=== PATIENT | male | born 1965 | race Caucasian/White ===

== ENCOUNTER 2021-04-22 13:32 | Inpatient (IN) | payer OTHER, SELFPAY ==
[~2021-04-22 13:32] MED LIST: Iopamidol-370 76% 500 ML 1 ML ONE; PROPOFOL 200 MG/20 ML VIAL ONE; Succinylcholine 200 MG/10 ml SYRINGE FS ONE
[2021-04-22] MEDS ORDERED: Succinylcholine 200 MG/10 ml SYRINGE FS ONE (13:36)
[2021-04-22] MEDS ORDERED: CEFAZOLIN 1 GM VIAL ONE ×2 (13:37→21:47)
[2021-04-22] MEDS ORDERED: ceFAZolin 2 GM/DEX 5% 100 ML BAG ONE (13:37)
[2021-04-22] MEDS ORDERED: Vecuronium 10 MG VIAL ONE (13:57)
[2021-04-22] MEDS ORDERED: Water For Inject, Bacteriostat 30 ML ONE (13:58)
[2021-04-22 13:59] LABS: #Basophils 0.2 thou/uL (0.0-0.2); #Eosinphils 0.2 thou/uL (0.0-0.7); #Lymphocytes 3.6 thou/uL (1.20-3.40); #Monocytes 0.9 thou/uL (0.11-0.59); #Neutrophils 14.2 thou/uL (1.40-6.50); %Basophils 0.8 % (0.0-1.0); %Eosinophils 1.2 % (0.0-10.0); %Lymphocytes 18.9 % (21.0-51.0); %Monocytes 4.5 % (0.0-10.0); %Neutrophils 74.5 % (42.0-75.0); Hemoglobin 14.9 g/dL (14.0-18.0); Mean Corpuscular HGB CONC 34.6 g/dL (32.0-36.0); Mean Corpuscular Hemoglobin 30.5 pg (27.0-31.0); Mean Corpuscular Volume 88.2 fL (78.0-98.0); Platelet Count 363 thou/uL (130-400); RBC Distribution Width 13.1 % (11.5-14.5); Red Blood Cell (RBC) Count 4.87 mill/uL (4.70-6.10); White Blood Cell (WBC) Count 19.1 thou/uL (4.8-10.8)
[2021-04-22] MEDS ORDERED: Fentanyl 100 MCG/2 ML VIAL ONE ×6 (13:59→22:31)
[2021-04-22] MEDS ORDERED: fentaNYL Citrate/PF 2,000 MCG in Sodium Chloride 0.9% 60 ML IV SCH (14:00)
[2021-04-22 14:07] LABS: Prothrombin Time 13.3 sec (12.0-14.7)
[2021-04-22 14:08] LABS: PTT 24.7 sec (22.9-36.1)
[2021-04-22 14:25] LABS: ALT (SGPT) 268 U/L (8-55); AST (SGOT) 205 U/L (5-34); Albumin 3.9 g/dL (3.5-5.0); Alkaline Phosphatase 79 U/L (40-110); Anion Gap 17 mmol/L (10-20); BUN (Urea Nitrogen) 19 mg/dL (8.4-25.7); Bilirubin, Total 0.4 mg/dL (0.2-1.2); Calc. Creatinine Clearance 0 mL/min (70-130); Calcium 8.7 mg/dL (7.8-10.44); Carbon Dioxide 25 mmol/L (22-29); Chloride 102 mmol/L (98-107); Globulin 2.2 g/dL (2.4-3.5); Potassium 3.7 mmol/L (3.5-5.1); Protein, Total 6.1 g/dL (6.0-8.3); Sodium 140 mmol/L (136-145)
[2021-04-22 14:28] LABS: Glucose 206 mg/dL (70-105)
[2021-04-22] MEDS ORDERED: Midazolam HCl 2 mg/2 ml Vial ONE ×3 (14:30→22:31)
[2021-04-22] MEDS ORDERED: Boostrix 0.5 ML (Tdap) VIAL ONE (15:32)
[2021-04-22 15:34] LABS: Actual Bicarbonate (HCO3a) 23.7 mEq/L (22-28); Analyzer IN Cardio ER; Base Excess (BEa) -1.7 mEq/L (-2.0 to +3.0); CO2 Tension 42.7 mmHg (35.0-45.0); Calcium, Ionized (arterial) 1.35 mmol/L (1.12-1.30); Carboxyhemoglobin (COHb) 0.2 gm% (0.0-3.0); O2 Tension (PaO2), arterial 146.3 mmHg (80.0-100.0); Potassium - ABG Lab 3.35 mmol/L (3.70-5.30); Puncture Site Arterial Line; pH, Arterial 7.36 (7.35-7.45)
[2021-04-22 15:35] LABS: ALV-art Gradient 513.325 mmHg (0-20)
[2021-04-22] MEDS ORDERED: Dextrose 5% in Water 1,000 ML IV PRN (15:54)
[2021-04-22] MEDS ORDERED: Promethazine HCl 25 MG/ML VIAL IM PRN (15:54)
[2021-04-22] MEDS ORDERED: Dextrose 50% Abboject 50 ML SYRINGE SLOW IVP PRN (15:54)
[2021-04-22] MEDS ORDERED: Ondansetron PF 4 MG/2 ML Vial IVP PRN (15:54)
[2021-04-22] MEDS ORDERED: fentaNYL Citrate/PF 2,000 MCG in Sodium Chloride 0.9% 60 ML IV PRN (16:04)
[2021-04-22 16:07] LABS: Hemoglobin A1c 5.8 % (4.0-6.0)
[2021-04-22] MEDS ORDERED: Sodium Chloride 0.9% 1,000 ML IV SCH (16:15)
[2021-04-22] MEDS ORDERED: PHENYLEPHRINE-NS 100 MCG/ML 10 ML SYRINGE ONE (16:56)
[2021-04-22] MEDS ORDERED: Rocuronium Bromide 10 MG/ML (10ML VIAL) ONE (16:56)
[2021-04-22] MEDS ORDERED: PROPOFOL 200 MG/20 ML VIAL ONE (16:56)
[2021-04-22] MEDS ORDERED: Phenylephrine 10 MG/ML VIAL ONE ×2 (17:00)
[2021-04-22] MEDS ORDERED: Morphine 4 MG/ML VIAL SLOW IVP PRN (17:03)
[2021-04-22] MEDS ORDERED: Albumin 5% 500 ML ONE (17:10)
[2021-04-22 17:20] LABS: SARS-CoV-2 NAA Rapid Test Not Detected (NotDetected)
[2021-04-22 17:57] LABS: INR-International Normal Ratio 1.2; PTT 25.2 sec (22.9-36.1); Prothrombin Time 15.1 sec (12.0-14.7)
[2021-04-22 17:59] LABS: Lactic Acid 3.2 mmol/L (0.5-2.2)
[2021-04-22 18:18] LABS: Hemoglobin 10.4 g/dL (14.0-18.0); Platelet Count 242 thou/uL (130-400)
[2021-04-22] MEDS ORDERED: Neomycin-Polymyxin 1 ML AMP ONE ×3 (18:42→19:46)
[2021-04-22] MEDS ORDERED: Rocuronium Bromide 50 MG/5 ML VIAL ONE ×4 (19:10→22:31)
[2021-04-22] MEDS ORDERED: Famotidine 20 MG TAB PO SCH (21:00)
[2021-04-22] MEDS ORDERED: PROPOFOL 20 ML ONE (22:31)
[2021-04-22] MEDS: Fentanyl CADD 100 ML ONE (23:25)
[2021-04-22 23:40] LABS: Actual Bicarbonate (HCO3a) 24.2 mEq/L (22-28); Base Excess (BEa) 0.7 mEq/L (-2.0 to +3.0); CO2 Tension 34.3 mmHg (35.0-45.0); Calcium, Ionized (arterial) 1.09 mmol/L (1.12-1.30); Carboxyhemoglobin (COHb) 0.5 gm% (0.0-3.0); Hemoglobin (Hb) 9.6 g/dL (14.0-18.0); Potassium - ABG Lab 3.88 mmol/L (3.70-5.30); Puncture Site Arterial Line; pH, Arterial 7.47 (7.35-7.45)
[2021-04-22 23:43] LABS: ALV-art Gradient 303.925 mmHg (0-20)
[2021-04-22] MEDS: Propofol 1,000 MG/100 ML VIAL IV PRN (23:50)
[2021-04-23 00:24] LABS: INR-International Normal Ratio 1.1; PTT 28.4 sec (22.9-36.1)
[2021-04-23 00:29] LABS: #Lymphocytes 0.7 thou/uL (1.20-3.40); #Monocytes 0.7 thou/uL (0.11-0.59); #Neutrophils 6.8 thou/uL (1.40-6.50); %Eosinophils 0.3 % (0.0-10.0); %Lymphocytes 8.2 % (21.0-51.0); %Monocytes 8.9 % (0.0-10.0); %Neutrophils 82.6 % (42.0-75.0); Hemoglobin 9.7 g/dL (14.0-18.0); Mean Corpuscular HGB CONC 36.3 g/dL (32.0-36.0); Mean Corpuscular Hemoglobin 31.2 pg (27.0-31.0); Mean Platelet Volume 7.3 fL (7.4-10.4); Platelet Count 197 thou/uL (130-400); RBC Distribution Width 14.2 % (11.5-14.5); White Blood Cell (WBC) Count 8.2 thou/uL (4.8-10.8)
[2021-04-23 00:34] LABS: Anion Gap 15 mmol/L (10-20); BUN (Urea Nitrogen) 20 mg/dL (8.4-25.7); Calc. Creatinine Clearance 90 mL/min (70-130); Calcium 8.7 mg/dL (7.8-10.44); Carbon Dioxide 24 mmol/L (22-29); Chloride 105 mmol/L (98-107); Glucose 172 mg/dL (70-105); Magnesium 1.7 mg/dL (1.6-2.6); Potassium 3.9 mmol/L (3.5-5.1); Sodium 140 mmol/L (136-145)
[2021-04-23 00:36] LABS: Lactic Acid 4.4 mmol/L (0.5-2.2)
[2021-04-23 00:50] LABS: CK (CPK) 6996 U/L (30-200)
[2021-04-23] MEDS ORDERED: Sodium Bicarbonate 150 MEQ in Dextrose 5% in Water 1,000 ML IV SCH (01:15)
[2021-04-23] MEDS ORDERED: Magnesium Sulfate 3 GM in Sodium Chloride 0.9% 250 ML 250 ML IVPB SCH (01:30)
[2021-04-23 04:43] LABS: #Basophils 0.1 thou/uL (0.0-0.2); #Lymphocytes 0.9 thou/uL (1.20-3.40); #Monocytes 0.9 thou/uL (0.11-0.59); #Neutrophils 7.3 thou/uL (1.40-6.50); %Basophils 0.7 % (0.0-1.0); %Eosinophils 0.1 % (0.0-10.0); %Lymphocytes 9.4 % (21.0-51.0); %Monocytes 9.7 % (0.0-10.0); %Neutrophils 80.1 % (42.0-75.0); Hemoglobin 8.8 g/dL (14.0-18.0); Mean Corpuscular HGB CONC 35.3 g/dL (32.0-36.0); Mean Corpuscular Hemoglobin 30.6 pg (27.0-31.0); Mean Corpuscular Volume 86.6 fL (78.0-98.0); Mean Platelet Volume 7.1 fL (7.4-10.4); Platelet Count 175 thou/uL (130-400); RBC Distribution Width 14.1 % (11.5-14.5); Red Blood Cell (RBC) Count 2.88 mill/uL (4.70-6.10); White Blood Cell (WBC) Count 9.2 thou/uL (4.8-10.8)
[2021-04-23 04:51] LABS: INR-International Normal Ratio 1.1; Prothrombin Time 14.4 sec (12.0-14.7)
[2021-04-23 04:52] LABS: PTT 28.4 sec (22.9-36.1)
[2021-04-23 05:00] LABS: Lactic Acid 3.7 mmol/L (0.5-2.2)
[2021-04-23 05:05] LABS: Anion Gap 15 mmol/L (10-20); BUN (Urea Nitrogen) 19 mg/dL (8.4-25.7); Calc. Creatinine Clearance 91 mL/min (70-130); Calcium 8.1 mg/dL (7.8-10.44); Carbon Dioxide 25 mmol/L (22-29); Chloride 106 mmol/L (98-107); Glucose 188 mg/dL (70-105); Magnesium 2.5 mg/dL (1.6-2.6); Potassium 3.9 mmol/L (3.5-5.1); Sodium 142 mmol/L (136-145)
[2021-04-23 05:06] LABS: Phosphorus 2.4 mg/dL (2.3-4.7)
[2021-04-23 05:08] LABS: ALT (SGPT) 80 U/L (8-55); AST (SGOT) 117 U/L (5-34); Albumin 3.3 g/dL (3.5-5.0); Alkaline Phosphatase 45 U/L (40-110); Bilirubin, Direct 0.3 mg/dL (0.1-0.3); Bilirubin, Total 0.6 mg/dL (0.2-1.2); Protein, Total 5.4 g/dL (6.0-8.3)
[2021-04-23 05:33] LABS: CK (CPK) 8758 U/L (30-200)
[2021-04-23] MEDS ORDERED: CEFAZOLIN 1 GM in Sodium Chloride 0.9% 100 ML IVPB SCH (06:00)
[2021-04-23] MEDS ORDERED: Lactated Ringer's 500 ML IV SCH (06:00)
[2021-04-23] MEDS ORDERED: Sodium Phosphate 30 MMOL in Sodium Chloride 0.9% 250 ML 250 ML IVPB SCH (07:30)
[2021-04-23 07:37] LABS: Actual Bicarbonate (HCO3a) 29.3 mEq/L (22-28); Base Excess (BEa) 5.9 mEq/L (-2.0 to +3.0); CO2 Tension 37.3 mmHg (35.0-45.0); Calcium, Ionized (arterial) 1.03 mmol/L (1.12-1.30); Carboxyhemoglobin (COHb) 0.7 gm% (0.0-3.0); Hemoglobin (Hb) 8.1 g/dL (14.0-18.0); O2 Tension (PaO2), arterial 138.3 mmHg (80.0-100.0); Potassium - ABG Lab 3.64 mmol/L (3.70-5.30); pH, Arterial 7.51 (7.35-7.45)
[2021-04-23 07:39] LABS: ALV-art Gradient 171.575 mmHg (0-20); Puncture Site Arterial Line
[2021-04-23] MEDS: Pantoprazole 40 MG VIAL IVP SCH (09:32)
[2021-04-23] MEDS: Propofol 1,000 MG/100 ML VIAL IV PRN ×3 (09:35→23:25)
[2021-04-23] MEDS ORDERED: Fentanyl CADD 100 ML ONE ×2 (09:37→21:37)
[2021-04-23] MEDS: Fentanyl CADD 100 ML ONE (09:39)
[2021-04-23] MEDS: Sodium Chloride 0.9% 1,000 ML IV SCH ×2 (09:53→15:35)
[2021-04-23] MEDS: Dexamethasone 4 mg/ml Vial SLOW IVP SCH ×3 (12:15→23:26)
[2021-04-23] MEDS: ceFAZolin Sodium/D5W 2 GM in Premix Bag 1 BAG IVPB SCH ×2 (13:13→21:45)
[2021-04-23] MEDS: Acetaminophen 500 MG TAB PO SCH ×2 (16:36→23:28)
[2021-04-24] MEDS: Sodium Chloride 0.9% 1,000 ML IV SCH ×4 (00:15→19:33)
[2021-04-24 04:25] LABS: #Lymphocytes 0.9 thou/uL (1.20-3.40); #Monocytes 0.8 thou/uL (0.11-0.59); %Eosinophils 0.1 % (0.0-10.0); %Lymphocytes 8.9 % (21.0-51.0); %Monocytes 7.8 % (0.0-10.0); %Neutrophils 83.2 % (42.0-75.0); Hemoglobin 6.9 g/dL (14.0-18.0); Mean Corpuscular HGB CONC 35.9 g/dL (32.0-36.0); Mean Corpuscular Hemoglobin 31.4 pg (27.0-31.0); Mean Corpuscular Volume 87.6 fL (78.0-98.0); Mean Platelet Volume 7.4 fL (7.4-10.4); Platelet Count 139 thou/uL (130-400); RBC Distribution Width 13.7 % (11.5-14.5); Red Blood Cell (RBC) Count 2.19 mill/uL (4.70-6.10); White Blood Cell (WBC) Count 9.6 thou/uL (4.8-10.8)
[2021-04-24 04:46] LABS: Lactic Acid 1.6 mmol/L (0.5-2.2)
[2021-04-24 04:48] LABS: Anion Gap 12 mmol/L (10-20); BUN (Urea Nitrogen) 18 mg/dL (8.4-25.7); Calc. Creatinine Clearance 127 mL/min (70-130); Calcium 7.7 mg/dL (7.8-10.44); Carbon Dioxide 27 mmol/L (22-29); Chloride 106 mmol/L (98-107); Glucose 177 mg/dL (70-105); Phosphorus 2.3 mg/dL (2.3-4.7); Potassium 3.7 mmol/L (3.5-5.1); Sodium 141 mmol/L (136-145)
[2021-04-24 05:15] LABS: CK (CPK) 8874 U/L (30-200)
[2021-04-24] MEDS: Acetaminophen 500 MG TAB PO SCH ×2 (05:36→13:46)
[2021-04-24] MEDS: Dexamethasone 4 mg/ml Vial SLOW IVP SCH (05:36)
[2021-04-24] MEDS: ceFAZolin Sodium/D5W 2 GM in Premix Bag 1 BAG IVPB SCH ×3 (05:36→22:08)
[2021-04-24] MEDS: Propofol 1,000 MG/100 ML VIAL IV PRN (05:36)
[2021-04-24 07:02] LABS: Actual Bicarbonate (HCO3a) 26.5 mEq/L (22-28); Base Excess (BEa) 2.6 mEq/L (-2.0 to +3.0); CO2 Tension 37.4 mmHg (35.0-45.0); Calcium, Ionized (arterial) 1.07 mmol/L (1.12-1.30); Carboxyhemoglobin (COHb) 0.1 gm% (0.0-3.0); Hemoglobin (Hb) 7.4 g/dL (14.0-18.0); O2 Tension (PaO2), arterial 120.3 mmHg (80.0-100.0); pH, Arterial 7.47 (7.35-7.45)
[2021-04-24 07:03] LABS: Puncture Site Arterial Line
[2021-04-24] MEDS ORDERED: Potassium Phosphate 30 MMOL in Sodium Chloride 0.9% 250 ML 250 ML IVPB SCH (07:45)
[2021-04-24] MEDS ORDERED: Fentanyl CADD 100 ML ONE ×2 (08:37→20:54)
[2021-04-24] MEDS: Pantoprazole 40 MG VIAL IVP SCH (09:53)
[2021-04-24] MEDS: Sodium Chloride 0.9% (PF) 10 ML VIAL FS PRN (09:53)
[2021-04-24] MEDS ORDERED: Insulin Regular 300 UNITS/3 ML VIAL SC PRN (11:21)
[2021-04-24] MEDS ORDERED: Acetaminophen 650 MG/20.3 ML UDCUP PO SCH (13:30)
[2021-04-24] MEDS ORDERED: Haloperidol Lactate 5 MG/ML VIAL ONE (14:45)
[2021-04-24] MEDS ORDERED: Haloperidol Lactate 5 MG/ML VIAL SLOW IVP SCH (15:00)
[2021-04-24] MEDS ORDERED: Morphine 4 MG/ML VIAL ONE (15:03)
[2021-04-24] MEDS ORDERED: Morphine 4 MG/ML VIAL SLOW IVP PRN (15:07)
[2021-04-24] MEDS: Insulin Regular 300 UNITS/3 ML VIAL SC PRN ×2 (15:10→22:23)
[2021-04-24] MEDS: Morphine 4 MG/ML VIAL SLOW IVP PRN ×2 (15:12→19:29)
[2021-04-24] MEDS: Cyclobenzaprine 10 MG TAB PO PRN (15:44)
[2021-04-24] MEDS ORDERED: Dexmedetomidine 200 MCG/2 ML VIAL SLOW IVP SCH (16:15)
[2021-04-24] MEDS: Acetaminophen 650 MG/20.3 ML UDCUP PO SCH ×2 (17:13→23:51)
[2021-04-24 20:13] LABS: Actual Bicarbonate (HCO3a) 25.7 mEq/L (22-28); Base Excess (BEa) 1.9 mEq/L (-2.0 to +3.0); CO2 Tension 36.4 mmHg (35.0-45.0); Calcium, Ionized (arterial) 1.06 mmol/L (1.12-1.30); Carboxyhemoglobin (COHb) 0.9 gm% (0.0-3.0); Hemoglobin (Hb) 7.6 g/dL (14.0-18.0); Potassium - ABG Lab 3.83 mmol/L (3.70-5.30); pH, Arterial 7.47 (7.35-7.45)
[2021-04-24 20:15] LABS: O2 Tension (PaO2), arterial 50.3 mmHg (80.0-100.0)
[2021-04-24 20:16] LABS: Puncture Site ALINE
[2021-04-24] MEDS ORDERED: Haloperidol Lactate 5 MG/ML VIAL SLOW IVP PRN (20:21)
[2021-04-24] MEDS ORDERED: Fentanyl BOLUS 250 ML IVPB PRN (21:45)
[2021-04-24] MEDS ORDERED: Morphine 2 MG/ML VIAL SLOW IVP PRN (21:45)
[2021-04-24] MEDS ORDERED: Propofol BOLUS 1,000 MG/100 ML VIAL IV PRN (21:45)
[2021-04-24 22:13] LABS: Actual Bicarbonate (HCO3a) 26.3 mEq/L (22-28); Base Excess (BEa) 1.7 mEq/L (-2.0 to +3.0); CO2 Tension 41.2 mmHg (35.0-45.0); Calcium, Ionized (arterial) 1.03 mmol/L (1.12-1.30); Carboxyhemoglobin (COHb) 0.6 gm% (0.0-3.0); Hemoglobin (Hb) 7.3 g/dL (14.0-18.0); O2 Tension (PaO2), arterial 70.6 mmHg (80.0-100.0); Puncture Site LINE; pH, Arterial 7.42 (7.35-7.45)
[2021-04-24] MEDS ORDERED: Calcium Chloride 1 GM/10 ML Abboject SYRINGE IVP SCH (23:15)
[2021-04-25] MEDS: Sodium Chloride 0.9% 1,000 ML IV SCH ×4 (03:04→21:05)
[2021-04-25 04:13] LABS: INR-International Normal Ratio 1.2; PTT 29.4 sec (22.9-36.1)
[2021-04-25 04:23] LABS: #Lymphocytes 1.1 thou/uL (1.20-3.40); #Monocytes 0.6 thou/uL (0.11-0.59); #Neutrophils 6.9 thou/uL (1.40-6.50); %Basophils 0.1 % (0.0-1.0); %Eosinophils 0.1 % (0.0-10.0); %Lymphocytes 12.9 % (21.0-51.0); %Monocytes 7.3 % (0.0-10.0); %Neutrophils 79.6 % (42.0-75.0); Hemoglobin 6.9 g/dL (14.0-18.0); Mean Corpuscular HGB CONC 34.9 g/dL (32.0-36.0); Mean Corpuscular Hemoglobin 30.8 pg (27.0-31.0); Mean Corpuscular Volume 88.2 fL (78.0-98.0); Mean Platelet Volume 7.9 fL (7.4-10.4); Platelet Count 164 thou/uL (130-400); RBC Distribution Width 13.4 % (11.5-14.5); Red Blood Cell (RBC) Count 2.24 mill/uL (4.70-6.10); White Blood Cell (WBC) Count 8.7 thou/uL (4.8-10.8)
[2021-04-25 04:24] LABS: Anion Gap 10 mmol/L (10-20); BUN (Urea Nitrogen) 19 mg/dL (8.4-25.7); Calc. Creatinine Clearance 137 mL/min (70-130); Carbon Dioxide 25 mmol/L (22-29); Chloride 111 mmol/L (98-107); Glucose 200 mg/dL (70-105); Magnesium 2.2 mg/dL (1.6-2.6); Phosphorus 2.2 mg/dL (2.3-4.7); Potassium 4.3 mmol/L (3.5-5.1); Sodium 142 mmol/L (136-145)
[2021-04-25] MEDS: Insulin Regular 300 UNITS/3 ML VIAL SC PRN ×3 (04:37→22:04)
[2021-04-25 04:51] LABS: CK (CPK) 14813 U/L (30-200)
[2021-04-25] MEDS: Acetaminophen 650 MG/20.3 ML UDCUP PO SCH ×3 (05:13→17:12)
[2021-04-25] MEDS: ceFAZolin Sodium/D5W 2 GM in Premix Bag 1 BAG IVPB SCH ×3 (05:13→21:12)
[2021-04-25] MEDS ORDERED: Sodium Phosphate 30 MMOL in Sodium Chloride 0.9% 250 ML 250 ML IVPB SCH (06:45)
[2021-04-25 06:59] LABS: Actual Bicarbonate (HCO3a) 27.4 mEq/L (22-28); Base Excess (BEa) 3.2 mEq/L (-2.0 to +3.0); CO2 Tension 40.2 mmHg (35.0-45.0); Calcium, Ionized (arterial) 1.11 mmol/L (1.12-1.30); Carboxyhemoglobin (COHb) 0.2 gm% (0.0-3.0); Hemoglobin (Hb) 6.9 g/dL (14.0-18.0); O2 Tension (PaO2), arterial 65.6 mmHg (80.0-100.0); Potassium - ABG Lab 4.08 mmol/L (3.70-5.30); pH, Arterial 7.45 (7.35-7.45)
[2021-04-25 07:00] LABS: Puncture Site Arterial Line
[2021-04-25] MEDS ORDERED: Calcium Chloride 13.6 MEQ in Sodium Chloride 0.9% 100 ML IVPB SCH (07:30)
[2021-04-25] MEDS: Pantoprazole 40 MG VIAL IVP SCH (07:43)
[2021-04-25] MEDS: Dexmedetomidine 1,000 MCG in Sodium Chloride 0.9% 250 ML 240 ML IVPB SCH ×3 (08:39→22:29)
[2021-04-25] MEDS: Metoclopramide HCl 10 MG/2 ML VIAL IVP SCH ×2 (12:35→21:12)
[2021-04-25] MEDS: Fentanyl CADD 100 ML IV SCH ×2 (13:13→23:26)
[2021-04-25] MEDS: Ferrous Sulfate 325 MG TAB PO SCH (17:12)
[2021-04-25] MEDS: Propofol 1,000 MG/100 ML VIAL IV PRN (19:44)
[2021-04-25] MEDS: Ascorbic Acid 500 mg Chewable Tablet PO SCH (20:47)
[2021-04-25] MEDS ORDERED: Fentanyl CADD 100 ML ONE (23:23)
[2021-04-26] MEDS: Acetaminophen 650 MG/20.3 ML UDCUP PO SCH ×4 (00:23→17:54)
[2021-04-26] MEDS: Propofol 1,000 MG/100 ML VIAL IV PRN ×3 (01:33→10:51)
[2021-04-26] MEDS: Sodium Chloride 0.9% 1,000 ML IV SCH ×3 (04:19→18:36)
[2021-04-26 04:33] LABS: Anion Gap 11 mmol/L (10-20); BUN (Urea Nitrogen) 22 mg/dL (8.4-25.7); Calc. Creatinine Clearance 147 mL/min (70-130); Calcium 7.6 mg/dL (7.8-10.44); Carbon Dioxide 24 mmol/L (22-29); Chloride 113 mmol/L (98-107); Glucose 138 mg/dL (70-105); Phosphorus 2.1 mg/dL (2.3-4.7); Potassium 3.9 mmol/L (3.5-5.1); Sodium 144 mmol/L (136-145)
[2021-04-26 04:46] LABS: CK (CPK) 6761 U/L (30-200)
[2021-04-26] MEDS: CEFAZOLIN 2 GM, Admixture Fee 1 EACH in Sodium Chloride 0.9% 100 ML IVPB SCH ×3 (05:31→22:40)
[2021-04-26] MEDS: Metoclopramide HCl 10 MG/2 ML VIAL IVP SCH ×3 (05:32→22:40)
[2021-04-26 06:21] LABS: #Eosinphils 0.1 thou/uL (0.0-0.7); #Lymphocytes 1.8 thou/uL (1.20-3.40); #Monocytes 1.2 thou/uL (0.11-0.59); #Neutrophils 6.8 thou/uL (1.40-6.50); %Basophils 0.2 % (0.0-1.0); %Lymphocytes 17.9 % (21.0-51.0); %Monocytes 12.2 % (0.0-10.0); %Neutrophils 68.7 % (42.0-75.0); Anisocytosis SLIGHT = 6-15 cells (100X) (0-5/hpf); Hemoglobin 7.7 g/dL (14.0-18.0); MDiff Complete? YES; Mean Corpuscular HGB CONC 34.9 g/dL (32.0-36.0); Mean Corpuscular Hemoglobin 31.3 pg (27.0-31.0); Mean Corpuscular Volume 89.7 fL (78.0-98.0); Mean Platelet Volume 7.6 fL (7.4-10.4); Platelet Count 208 thou/uL (130-400); RBC Distribution Width 13.7 % (11.5-14.5); Red Blood Cell (RBC) Count 2.46 mill/uL (4.70-6.10); White Blood Cell (WBC) Count 9.9 thou/uL (4.8-10.8)
[2021-04-26 07:15] LABS: Actual Bicarbonate (HCO3a) 22.4 mEq/L (22-28); Base Excess (BEa) -1.4 mEq/L (-2.0 to +3.0); CO2 Tension 33.1 mmHg (35.0-45.0); Calcium, Ionized (arterial) 1.09 mmol/L (1.12-1.30); Carboxyhemoglobin (COHb) 0.3 gm% (0.0-3.0); Hemoglobin (Hb) 7.7 g/dL (14.0-18.0); O2 Tension (PaO2), arterial 75.6 mmHg (80.0-100.0); pH, Arterial 7.45 (7.35-7.45)
[2021-04-26 07:18] LABS: ALV-art Gradient 453.425 mmHg (0-20); Puncture Site A-Line
[2021-04-26] MEDS ORDERED: Sodium Phosphate 30 MMOL in Sodium Chloride 0.9% 250 ML 250 ML IVPB SCH (07:30)
[2021-04-26] MEDS ORDERED: Fentanyl CADD 100 ML ONE ×2 (08:47→17:36)
[2021-04-26] MEDS: Ferrous Sulfate 325 MG TAB PO SCH ×2 (08:52→17:54)
[2021-04-26] MEDS: Pantoprazole 40 MG VIAL IVP SCH (08:53)
[2021-04-26] MEDS: Fentanyl CADD 100 ML IV SCH (08:53)
[2021-04-26] MEDS: Ascorbic Acid 500 mg Chewable Tablet PO SCH ×2 (08:53→21:49)
[2021-04-26] MEDS ORDERED: FLU VACC QS2021-22(6MOS UP)/PF 60 MCG/0.5 ML SYRINGE IM ONE (09:00)
[2021-04-26] MEDS ORDERED: Iopamidol 370 76% 50 ML VIAL FS ONE (09:09)
[2021-04-26] MEDS ORDERED: Calcium Chloride 13.6 MEQ in Sodium Chloride 0.9% 100 ML IVPB SCH ×2 (09:15→18:15)
[2021-04-26] MEDS ORDERED: Midazolam In 0.9 % NaCl/PF 100 ML IVPB SCH (11:45)
[2021-04-26] MEDS ORDERED: Lidocaine 1% (PF) 30 ML VIAL ONE (15:58)
[2021-04-26] MEDS ORDERED: Midazolam HCl 2 mg/2 ml Vial ONE (16:46)
[2021-04-26] MEDS ORDERED: Fentanyl 100 MCG/2 ML VIAL ONE (16:46)
[2021-04-26 17:32] LABS: Actual Bicarbonate (HCO3a) 20.9 mEq/L (22-28); Base Excess (BEa) -3.9 mEq/L (-2.0 to +3.0); CO2 Tension 36.8 mmHg (35.0-45.0); Calcium, Ionized (arterial) 1.11 mmol/L (1.12-1.30); Carboxyhemoglobin (COHb) 0.5 gm% (0.0-3.0); Hemoglobin (Hb) 8.2 g/dL (14.0-18.0); Potassium - ABG Lab 3.74 mmol/L (3.70-5.30); pH, Arterial 7.37 (7.35-7.45)
[2021-04-26 17:33] LABS: O2 Tension (PaO2), arterial 43.5 mmHg (80.0-100.0)
[2021-04-26 17:34] LABS: Puncture Site Arterial Line
[2021-04-26] MEDS ORDERED: Vecuronium 10 MG VIAL ONE (20:28)
[2021-04-26] MEDS ORDERED: Sterile Water 10 ML ONE (20:28)
[2021-04-26] MEDS ORDERED: Vecuronium 10 MG VIAL IVP SCH (21:30)
[2021-04-26] MEDS: Vecuronium 10 MG VIAL ONE ×2 (22:43→22:48)
[2021-04-26] MEDS ORDERED: Furosemide 20 MG/2 ML VIAL SLOW IVP SCH (23:00)
[2021-04-26] MEDS: Vecuronium Bromide 50 MG in Sodium Chloride 0.9% 250 ML 250 ML IV SCH (23:14)
[2021-04-26] MEDS ORDERED: Digoxin 0.5 MG/2 ML AMP SLOW IVP SCH (23:45)
[2021-04-27] MEDS: Acetaminophen 650 MG/20.3 ML UDCUP PO SCH ×5 (00:22→23:49)
[2021-04-27] MEDS ORDERED: Potassium Chloride 40 MEQ in Premix Bag 1 BAG IVPB SCH (00:30)
[2021-04-27] MEDS: Sodium Chloride 0.9% 1,000 ML IV SCH ×5 (00:59→21:02)
[2021-04-27] MEDS: Propofol 1,000 MG/100 ML VIAL IV PRN (00:59)
[2021-04-27 02:03] LABS: Thyroid Stimulating Hormone 1.8322 uIU/mL (0.35-4.94)
[2021-04-27 02:07] LABS: CKMB 1.4 ng/mL (0-6.6)
[2021-04-27 05:03] LABS: #Lymphocytes 1.3 thou/uL (1.20-3.40); #Monocytes 0.9 thou/uL (0.11-0.59); #Neutrophils 8.5 thou/uL (1.40-6.50); %Basophils 0.3 % (0.0-1.0); %Eosinophils 0.3 % (0.0-10.0); %Monocytes 8.2 % (0.0-10.0); %Neutrophils 79.2 % (42.0-75.0); Hemoglobin 6.8 g/dL (14.0-18.0); Mean Corpuscular HGB CONC 34.2 g/dL (32.0-36.0); Mean Corpuscular Volume 90.5 fL (78.0-98.0); Mean Platelet Volume 7.4 fL (7.4-10.4); Platelet Count 235 thou/uL (130-400); RBC Distribution Width 13.9 % (11.5-14.5); White Blood Cell (WBC) Count 10.7 thou/uL (4.8-10.8)
[2021-04-27] MEDS: Vecuronium Bromide 50 MG in Sodium Chloride 0.9% 250 ML 250 ML IV SCH ×3 (05:19→19:21)
[2021-04-27 05:22] LABS: Troponin I 0.043 ng/mL (< 0.028)
[2021-04-27 05:41] LABS: Free T4 (Free Thyroxine) 0.6 ng/dL (0.70-1.48)
[2021-04-27 06:00] LABS: Anion Gap 12 mmol/L (10-20); BUN (Urea Nitrogen) 19 mg/dL (8.4-25.7); CK (CPK) 3467 U/L (30-200); Calc. Creatinine Clearance 134 mL/min (70-130); Calcium 7.6 mg/dL (7.8-10.44); Carbon Dioxide 21 mmol/L (22-29); Chloride 114 mmol/L (98-107); Glucose 150 mg/dL (70-105); Phosphorus 3.4 mg/dL (2.3-4.7); Potassium 4.3 mmol/L (3.5-5.1); Sodium 143 mmol/L (136-145)
[2021-04-27] MEDS: CEFAZOLIN 2 GM, Admixture Fee 1 EACH in Sodium Chloride 0.9% 100 ML IVPB SCH (06:31)
[2021-04-27] MEDS: Metoclopramide HCl 10 MG/2 ML VIAL IVP SCH ×3 (06:31→21:53)
[2021-04-27] MEDS ORDERED: Fentanyl CADD 100 ML ONE ×2 (06:32→16:41)
[2021-04-27] MEDS: Fentanyl CADD 100 ML IV SCH (06:36)
[2021-04-27 07:15] LABS: Actual Bicarbonate (HCO3a) 24.5 mEq/L (22-28); Base Excess (BEa) 0.5 mEq/L (-2.0 to +3.0); CO2 Tension 36.3 mmHg (35.0-45.0); Carboxyhemoglobin (COHb) 0.3 gm% (0.0-3.0); O2 Tension (PaO2), arterial 99.8 mmHg (80.0-100.0); Potassium - ABG Lab 4.05 mmol/L (3.70-5.30); pH, Arterial 7.45 (7.35-7.45)
[2021-04-27 07:18] LABS: Puncture Site RRA
[2021-04-27 07:20] LABS: ALV-art Gradient 282.625 mmHg (0-20)
[2021-04-27] MEDS ORDERED: Calcium Chloride 13.6 MEQ in Sodium Chloride 0.9% 100 ML IVPB SCH (07:45)
[2021-04-27] MEDS ORDERED: Sodium Phosphate 15 MMOL in Sodium Chloride 0.9% 250 ML 250 ML IVPB SCH (07:45)
[2021-04-27] MEDS: Pantoprazole 40 MG VIAL IVP SCH (08:23)
[2021-04-27] MEDS: Ferrous Sulfate 325 MG TAB PO SCH ×2 (08:23→17:40)
[2021-04-27] MEDS: Ascorbic Acid 500 mg Chewable Tablet PO SCH ×2 (08:23→20:06)
[2021-04-27] MEDS ORDERED: Iopamidol-370 76% 500 ML 1 ML ONE (10:52)
[2021-04-27] MEDS: cefTRIAXone\\ROCEPHIN 2 GM in Sodium Chloride 0.9% 100 ML IVPB SCH (12:05)
[2021-04-27] MEDS: Furosemide 20 MG/2 ML VIAL SLOW IVP SCH ×2 (14:09→21:53)
[2021-04-27] MEDS ORDERED: Sterile Water 10 ML VIAL IVP SCH (15:30)
[2021-04-27] MEDS ORDERED: Activase 2 MG VIAL CATH SCH (15:30)
[2021-04-28] MEDS ORDERED: Fentanyl CADD 100 ML ONE ×3 (02:45→21:41)
[2021-04-28] MEDS: Fentanyl CADD 100 ML IV SCH ×3 (02:49→21:44)
[2021-04-28] MEDS: Sodium Chloride 0.9% 1,000 ML IV SCH ×3 (03:16→16:32)
[2021-04-28] MEDS: hydrALAZINE 20 MG/ML VIAL SLOW IVP PRN ×3 (04:06→20:09)
[2021-04-28] MEDS: Propofol 1,000 MG/100 ML VIAL IV PRN ×3 (04:11→18:47)
[2021-04-28 04:21] LABS: Hemoglobin 8.5 g/dL (14.0-18.0); Mean Corpuscular HGB CONC 33.9 g/dL (32.0-36.0); Mean Corpuscular Hemoglobin 30.5 pg (27.0-31.0); Mean Corpuscular Volume 89.8 fL (78.0-98.0); Mean Platelet Volume 7.6 fL (7.4-10.4); Platelet Count 261 thou/uL (130-400); RBC Distribution Width 14.7 % (11.5-14.5); Red Blood Cell (RBC) Count 2.78 mill/uL (4.70-6.10); White Blood Cell (WBC) Count 11.9 thou/uL (4.8-10.8)
[2021-04-28 04:40] LABS: Anion Gap 13 mmol/L (10-20); BUN (Urea Nitrogen) 24 mg/dL (8.4-25.7); Calc. Creatinine Clearance 160 mL/min (70-130); Calcium 7.5 mg/dL (7.8-10.44); Carbon Dioxide 24 mmol/L (22-29); Chloride 112 mmol/L (98-107); Glucose 118 mg/dL (70-105); Magnesium 2.2 mg/dL (1.6-2.6); Phosphorus 2.3 mg/dL (2.3-4.7); Potassium 3.8 mmol/L (3.5-5.1); Sodium 145 mmol/L (136-145)
[2021-04-28] MEDS: Vecuronium Bromide 50 MG in Sodium Chloride 0.9% 250 ML 250 ML IV SCH ×3 (04:40→19:10)
[2021-04-28 05:41] LABS: Band 10 % (5-11); Lymphocytes 22 % (21-51); MDiff Complete? YES; Monocytes 4 % (0-10); Neutrophil 64 % (42-75); Nucleated RBC 2 % (0)
[2021-04-28] MEDS: Furosemide 20 MG/2 ML VIAL SLOW IVP SCH ×3 (05:43→22:03)
[2021-04-28] MEDS: Acetaminophen 650 MG/20.3 ML UDCUP PO SCH ×4 (05:44→23:38)
[2021-04-28] MEDS: Metoclopramide HCl 10 MG/2 ML VIAL IVP SCH ×3 (06:06→22:03)
[2021-04-28] MEDS: Ferrous Sulfate 325 MG TAB PO SCH ×2 (08:26→17:00)
[2021-04-28] MEDS: Ascorbic Acid 500 mg Chewable Tablet PO SCH ×2 (08:26→20:11)
[2021-04-28] MEDS: Pantoprazole 40 MG VIAL IVP SCH (08:26)
[2021-04-28] MEDS ORDERED: Potassium Phosphate 30 MMOL in Sodium Chloride 0.9% 250 ML 250 ML IVPB SCH (08:45)
[2021-04-28] MEDS: cefTRIAXone\\ROCEPHIN 2 GM in Sodium Chloride 0.9% 100 ML IVPB SCH (11:51)
[2021-04-28 20:55] LABS: Hemoglobin 9.5 g/dL (14.0-18.0); Mean Corpuscular HGB CONC 34.4 g/dL (32.0-36.0); Mean Corpuscular Hemoglobin 30.7 pg (27.0-31.0); Mean Corpuscular Volume 89.1 fL (78.0-98.0); Mean Platelet Volume 7.7 fL (7.4-10.4); Platelet Count 315 thou/uL (130-400); RBC Distribution Width 14.7 % (11.5-14.5); Red Blood Cell (RBC) Count 3.11 mill/uL (4.70-6.10); White Blood Cell (WBC) Count 12.4 thou/uL (4.8-10.8)
[2021-04-28 21:14] LABS: Band 3 % (5-11); Lymphocytes 9 % (21-51); MDiff Complete? YES; Monocytes 8 % (0-10); Myelocyte 4 % (0-0); Neutrophil 74 % (42-75); Nucleated RBC 4 % (0)
[2021-04-28 21:17] LABS: Anion Gap 6 mmol/L (10-20); BUN (Urea Nitrogen) 22 mg/dL (8.4-25.7); Calc. Creatinine Clearance 173 mL/min (70-130); Calcium 7.5 mg/dL (7.8-10.44); Carbon Dioxide 22 mmol/L (22-29); Chloride 112 mmol/L (98-107); Glucose 140 mg/dL (70-105); Magnesium 2.2 mg/dL (1.6-2.6); Phosphorus 3.1 mg/dL (2.3-4.7); Potassium 3.7 mmol/L (3.5-5.1); Sodium 136 mmol/L (136-145)
[2021-04-28] MEDS ORDERED: Potassium Chloride 40 MEQ in Premix Bag 1 BAG IVPB SCH (21:45)
[2021-04-28] MEDS ORDERED: Piperacillin/Tazobactam 3.375 GM in Sodium Chloride 0.9% 100 ML IVPB SCH (22:00)
[2021-04-28] MEDS: Piperacillin/Tazobactam 3.375 GM in Sodium Chloride 0.9% 100 ML IVPB SCH ×2 (22:27→22:28)
[2021-04-29] MEDS: Sodium Chloride 0.9% 1,000 ML IV SCH ×4 (00:02→23:22)
[2021-04-29] MEDS: Propofol 1,000 MG/100 ML VIAL IV PRN ×5 (02:30→18:49)
[2021-04-29 04:41] LABS: Mean Corpuscular HGB CONC 33.6 g/dL (32.0-36.0); Mean Corpuscular Hemoglobin 29.9 pg (27.0-31.0); Mean Corpuscular Volume 88.9 fL (78.0-98.0); Mean Platelet Volume 7.7 fL (7.4-10.4); Platelet Count 336 thou/uL (130-400); RBC Distribution Width 14.7 % (11.5-14.5); Red Blood Cell (RBC) Count 3.03 mill/uL (4.70-6.10); White Blood Cell (WBC) Count 12.6 thou/uL (4.8-10.8)
[2021-04-29 05:01] LABS: Anion Gap 13 mmol/L (10-20); BUN (Urea Nitrogen) 27 mg/dL (8.4-25.7); Calc. Creatinine Clearance 168 mL/min (70-130); Calcium 7.5 mg/dL (7.8-10.44); Carbon Dioxide 24 mmol/L (22-29); Chloride 112 mmol/L (98-107); Glucose 120 mg/dL (70-105); Magnesium 2.1 mg/dL (1.6-2.6); Phosphorus 3.3 mg/dL (2.3-4.7); Sodium 145 mmol/L (136-145)
[2021-04-29] MEDS: Acetaminophen 650 MG/20.3 ML UDCUP PO SCH ×4 (05:14→23:20)
[2021-04-29] MEDS: Furosemide 20 MG/2 ML VIAL SLOW IVP SCH (05:15)
[2021-04-29] MEDS: Metoclopramide HCl 10 MG/2 ML VIAL IVP SCH ×3 (05:16→20:45)
[2021-04-29] MEDS: Piperacillin/Tazobactam 3.375 GM in Sodium Chloride 0.9% 100 ML IVPB SCH ×3 (05:16→20:45)
[2021-04-29 05:48] LABS: Band 9 % (5-11); Eosinophils 1 % (0-10); Lymphocytes 14 % (21-51); MDiff Complete? YES; Metamyelocyte 3 % (0-0); Monocytes 8 % (0-10); Myelocyte 11 % (0-0); Neutrophil 54 % (42-75); Nucleated RBC 2 % (0)
[2021-04-29] MEDS: Vecuronium Bromide 50 MG in Sodium Chloride 0.9% 250 ML 250 ML IV SCH ×2 (06:27→14:48)
[2021-04-29] MEDS ORDERED: Fentanyl CADD 100 ML ONE ×2 (07:02→15:42)
[2021-04-29] MEDS: Fentanyl CADD 100 ML IV SCH ×2 (07:10→15:44)
[2021-04-29] MEDS ORDERED: Potassium Phosphate 15 MMOL in Sodium Chloride 0.9% 250 ML 250 ML IVPB SCH (07:45)
[2021-04-29] MEDS: Ascorbic Acid 500 mg Chewable Tablet PO SCH ×2 (08:04→20:45)
[2021-04-29] MEDS: Ferrous Sulfate 325 MG TAB PO SCH ×2 (08:05→16:49)
[2021-04-29] MEDS: Pantoprazole 40 MG VIAL IVP SCH (08:30)
[2021-04-29] MEDS ORDERED: Vancomycin HCl 2.5 GM in Sodium Chloride 0.9% 500 ML IVPB SCH (09:30)
[2021-04-29] MEDS: hydrALAZINE 20 MG/ML VIAL SLOW IVP PRN (13:23)
[2021-04-29 13:29] LABS: Actual Bicarbonate (HCO3a) 16.5 mEq/L (22-28); Analyzer IN Cardio OR; Calcium, Ionized (arterial) 0.89 mmol/L (1.12-1.30); Carboxyhemoglobin (COHb) 0.9 gm% (0.0-3.0); Hemoglobin (Hb) 7.6 g/dL (14.0-18.0); O2 Tension (PaO2), arterial 337.1 mmHg (80.0-100.0); Potassium - ABG Lab 2.26 mmol/L (3.70-5.30); Puncture Site Arterial Line
[2021-04-29] MEDS: VANCOMYCIN 2 GRAM/400 ML BAG 2 GM in Premix Bag 1 BAG IVPB SCH (23:22)
[2021-04-30] MEDS ORDERED: Fentanyl CADD 100 ML ONE ×3 (00:36→20:08)
[2021-04-30] MEDS: Fentanyl CADD 100 ML IV SCH ×3 (00:44→20:12)
[2021-04-30] MEDS: Sodium Chloride 0.9% 1,000 ML IV SCH ×3 (03:15→23:30)
[2021-04-30 03:45] LABS: Anion Gap 15 mmol/L (10-20); BUN (Urea Nitrogen) 23 mg/dL (8.4-25.7); Calc. Creatinine Clearance 152 mL/min (70-130); Calcium 7.2 mg/dL (7.8-10.44); Carbon Dioxide 20 mmol/L (22-29); Chloride 112 mmol/L (98-107); Glucose 147 mg/dL (70-105); Magnesium 2.4 mg/dL (1.6-2.6); Phosphorus 3.8 mg/dL (2.3-4.7); Potassium 4.3 mmol/L (3.5-5.1); Sodium 143 mmol/L (136-145)
[2021-04-30 04:17] LABS: Band 23 % (5-11); Hemoglobin 9.7 g/dL (14.0-18.0); Lymphocytes 12 % (21-51); MDiff Complete? YES; Mean Corpuscular HGB CONC 33.4 g/dL (32.0-36.0); Mean Corpuscular Hemoglobin 30.2 pg (27.0-31.0); Mean Corpuscular Volume 90.5 fL (78.0-98.0); Mean Platelet Volume 7.7 fL (7.4-10.4); Monocytes 8 % (0-10); Neutrophil 57 % (42-75); Nucleated RBC 1 % (0); Platelet Count 337 thou/uL (130-400); RBC Distribution Width 14.9 % (11.5-14.5); Red Blood Cell (RBC) Count 3.21 mill/uL (4.70-6.10); White Blood Cell (WBC) Count 14.8 thou/uL (4.8-10.8)
[2021-04-30] MEDS: Metoclopramide HCl 10 MG/2 ML VIAL IVP SCH ×3 (05:04→20:12)
[2021-04-30] MEDS: Acetaminophen 650 MG/20.3 ML UDCUP PO SCH ×3 (05:04→19:49)
[2021-04-30] MEDS: Piperacillin/Tazobactam 3.375 GM in Sodium Chloride 0.9% 100 ML IVPB SCH (05:04)
[2021-04-30 08:17] LABS: SARS-CoV-2 PCR by NAA Not Detected (NotDetected)
[2021-04-30] MEDS: Ascorbic Acid 500 mg Chewable Tablet PO SCH ×2 (08:48→20:12)
[2021-04-30] MEDS: Ferrous Sulfate 325 MG TAB PO SCH ×2 (08:48→16:48)
[2021-04-30] MEDS: Sodium Chloride 0.9% (PF) 10 ML VIAL FS PRN (08:49)
[2021-04-30] MEDS: Pantoprazole 40 MG VIAL IVP SCH (08:49)
[2021-04-30] MEDS: Enoxaparin Sodium 40 MG/0.4 ML SYRINGE SC SCH ×2 (09:26→20:12)
[2021-04-30] MEDS: Propofol 1,000 MG/100 ML VIAL IV PRN ×4 (09:26→23:51)
[2021-04-30] MEDS: hydrALAZINE 20 MG/ML VIAL SLOW IVP PRN (11:07)
[2021-04-30] MEDS ORDERED: Labetalol HCl 100 MG/20 ML VIAL ONE (11:12)
[2021-04-30] MEDS ORDERED: Labetalol HCl 100 MG/20 ML VIAL SLOW IVP SCH (11:14)
[2021-04-30] MEDS ORDERED: Labetalol HCl 100 MG/20 ML VIAL SLOW IVP PRN (11:22)
[2021-04-30] MEDS: VANCOMYCIN 2 GRAM/400 ML BAG 2 GM in Premix Bag 1 BAG IVPB SCH ×2 (11:47→23:29)
[2021-04-30] MEDS: Floranex 1 GM Packet PER TUBE SCH (11:47)
[2021-04-30] MEDS ORDERED: Furosemide 40 MG/4 ML VIAL SLOW IVP SCH (13:00)
[2021-04-30 14:01] LABS: Actual Bicarbonate (HCO3a) 23.4 mEq/L (22-28); CO2 Tension 42.1 mmHg (35.0-45.0); Carboxyhemoglobin (COHb) 0.5 gm% (0.0-3.0); Hemoglobin (Hb) 10.1 g/dL (14.0-18.0); O2 Tension (PaO2), arterial 70.1 mmHg (80.0-100.0); Potassium - ABG Lab 3.95 mmol/L (3.70-5.30); pH, Arterial 7.36 (7.35-7.45)
[2021-04-30 14:02] LABS: Puncture Site RRA
[2021-04-30 14:04] LABS: ALV-art Gradient 447.675 mmHg (0-20)
[2021-04-30] MEDS: Vecuronium Bromide 50 MG in Sodium Chloride 0.9% 250 ML 250 ML IV SCH (16:11)
[2021-04-30 21:52] LABS: Vancomycin, Trough 17.2 ug/mL
[2021-04-30] MEDS: Acetaminophen 325 MG/10.15 ML UDCUP PO SCH (23:29)
[2021-05-01] MEDS: Acetaminophen 325 MG/10.15 ML UDCUP PO SCH ×3 (05:38→17:13)
[2021-05-01] MEDS: Metoclopramide HCl 10 MG/2 ML VIAL IVP SCH ×3 (05:39→21:32)
[2021-05-01] MEDS ORDERED: Fentanyl CADD 100 ML ONE ×2 (06:11→16:15)
[2021-05-01] MEDS: Fentanyl CADD 100 ML IV SCH ×2 (06:15→16:19)
[2021-05-01] MEDS: Vecuronium Bromide 50 MG in Sodium Chloride 0.9% 250 ML 250 ML IV SCH (06:31)
[2021-05-01] MEDS: Propofol 1,000 MG/100 ML VIAL IV PRN ×4 (07:56→21:34)
[2021-05-01] MEDS: Ferrous Sulfate 325 MG TAB PO SCH ×2 (09:11→16:54)
[2021-05-01] MEDS: Ascorbic Acid 500 mg Chewable Tablet PO SCH ×2 (09:11→21:33)
[2021-05-01] MEDS: Floranex 1 GM Packet PER TUBE SCH (09:11)
[2021-05-01] MEDS: Enoxaparin Sodium 40 MG/0.4 ML SYRINGE SC SCH ×2 (09:11→21:33)
[2021-05-01] MEDS: Pantoprazole 40 MG VIAL IVP SCH (09:11)
[2021-05-01] MEDS: VANCOMYCIN 2 GRAM/400 ML BAG 2 GM in Premix Bag 1 BAG IVPB SCH ×2 (10:04→21:33)
[2021-05-01] MEDS: Sodium Chloride 0.9% 1,000 ML IV SCH (18:21)
[2021-05-02] MEDS: Acetaminophen 325 MG/10.15 ML UDCUP PO SCH ×3 (00:05→12:36)
[2021-05-02] MEDS: Sodium Chloride 0.9% 1,000 ML IV SCH ×2 (01:02→01:21)
[2021-05-02] MEDS: Propofol 1,000 MG/100 ML VIAL IV PRN ×6 (01:18→21:16)
[2021-05-02] MEDS ORDERED: Fentanyl CADD 100 ML ONE ×3 (02:22→22:30)
[2021-05-02] MEDS: Fentanyl CADD 100 ML IV SCH ×3 (02:27→22:34)
[2021-05-02] MEDS: Insulin Regular 300 UNITS/3 ML VIAL SC PRN ×2 (04:00→16:09)
[2021-05-02 04:50] LABS: Anion Gap 13 mmol/L (10-20); BUN (Urea Nitrogen) 30 mg/dL (8.4-25.7); Calc. Creatinine Clearance 154 mL/min (70-130); Calcium 7.8 mg/dL (7.8-10.44); Carbon Dioxide 24 mmol/L (22-29); Chloride 114 mmol/L (98-107); Glucose 168 mg/dL (70-105); Magnesium 2.6 mg/dL (1.6-2.6); Potassium 3.8 mmol/L (3.5-5.1); Sodium 147 mmol/L (136-145)
[2021-05-02 05:29] LABS: Band 15 % (5-11); Hemoglobin 7.6 g/dL (14.0-18.0); Lymphocytes 7 % (21-51); MDiff Complete? YES; Mean Corpuscular HGB CONC 30.7 g/dL (32.0-36.0); Mean Corpuscular Hemoglobin 28.4 pg (27.0-31.0); Mean Corpuscular Volume 92.3 fL (78.0-98.0); Mean Platelet Volume 8.1 fL (7.4-10.4); Metamyelocyte 1 % (0-0); Monocytes 4 % (0-10); Neutrophil 73 % (42-75); Nucleated RBC 1 % (0); Platelet Count 444 thou/uL (130-400); RBC Distribution Width 14.8 % (11.5-14.5); Red Blood Cell (RBC) Count 2.69 mill/uL (4.70-6.10); White Blood Cell (WBC) Count 18.9 thou/uL (4.8-10.8)
[2021-05-02] MEDS: Metoclopramide HCl 10 MG/2 ML VIAL IVP SCH ×3 (06:11→21:44)
[2021-05-02] MEDS: Lactated Ringer's 1,000 ML IV SCH (09:01)
[2021-05-02] MEDS: Enoxaparin Sodium 40 MG/0.4 ML SYRINGE SC SCH ×2 (09:02→20:41)
[2021-05-02] MEDS: Pantoprazole 40 MG VIAL IVP SCH (09:02)
[2021-05-02] MEDS: Ascorbic Acid 500 mg Chewable Tablet PO SCH ×2 (09:02→20:41)
[2021-05-02] MEDS: Floranex 1 GM Packet PER TUBE SCH (09:02)
[2021-05-02 09:41] LABS: Vancomycin, Trough 21.7 ug/mL
[2021-05-02 10:04] LABS: Actual Bicarbonate (HCO3a) 24.3 mEq/L (22-28); Base Excess (BEa) -0.2 mEq/L (-2.0 to +3.0); CO2 Tension 38.6 mmHg (35.0-45.0); Calcium, Ionized (arterial) 1.12 mmol/L (1.12-1.30); Carboxyhemoglobin (COHb) 1.3 gm% (0.0-3.0); Hemoglobin (Hb) 8.1 g/dL (14.0-18.0); O2 Tension (PaO2), arterial 72.6 mmHg (80.0-100.0); Potassium - ABG Lab 3.57 mmol/L (3.70-5.30); pH, Arterial 7.42 (7.35-7.45)
[2021-05-02 10:07] LABS: Puncture Site LRA
[2021-05-02] MEDS: Vancomycin 1.5 GRAM/300 ML BAG 1.5 GM in Premix Bag 1 BAG IVPB SCH ×2 (10:55→21:44)
[2021-05-02] MEDS: Ferrous Sulfate 325 MG TAB PO SCH (12:37)
[2021-05-02] MEDS: Acetaminophen 500 MG TAB PER TUBE SCH ×2 (12:44→18:12)
[2021-05-02] MEDS: Labetalol HCl 100 MG/20 ML VIAL SLOW IVP PRN (22:19)
[2021-05-03] MEDS: Acetaminophen 500 MG TAB PER TUBE SCH ×5 (00:08→23:07)
[2021-05-03] MEDS: Lactated Ringer's 1,000 ML IV SCH (00:09)
[2021-05-03] MEDS: Propofol 1,000 MG/100 ML VIAL IV PRN ×7 (00:09→23:07)
[2021-05-03 04:47] LABS: Band 1 % (5-11); Hemoglobin 7.5 g/dL (14.0-18.0); Hypochromia SLIGHT = 6-15 cells (100X) (0-5/hpf); Lymphocytes 22 % (21-51); MDiff Complete? YES; Mean Corpuscular HGB CONC 29.9 g/dL (32.0-36.0); Mean Corpuscular Hemoglobin 27.8 pg (27.0-31.0); Mean Corpuscular Volume 92.9 fL (78.0-98.0); Mean Platelet Volume 7.8 fL (7.4-10.4); Monocytes 5 % (0-10); Neutrophil 72 % (42-75); Nucleated RBC 1 % (0); Platelet Count 520 thou/uL (130-400); Platelet Morphology Comment Appears Decreased; RBC Distribution Width 14.9 % (11.5-14.5); Red Blood Cell (RBC) Count 2.71 mill/uL (4.70-6.10)
[2021-05-03 04:55] LABS: Anion Gap 12 mmol/L (10-20); BUN (Urea Nitrogen) 28 mg/dL (8.4-25.7); Calc. Creatinine Clearance 178 mL/min (70-130); Calcium 8.2 mg/dL (7.8-10.44); Carbon Dioxide 25 mmol/L (22-29); Chloride 115 mmol/L (98-107); Glucose 122 mg/dL (70-105); Magnesium 2.3 mg/dL (1.6-2.6); Phosphorus 3.3 mg/dL (2.3-4.7); Sodium 148 mmol/L (136-145)
[2021-05-03] MEDS: Metoclopramide HCl 10 MG/2 ML VIAL IVP SCH ×3 (06:36→22:42)
[2021-05-03] MEDS ORDERED: Furosemide 20 MG/2 ML VIAL SLOW IVP SCH (08:30)
[2021-05-03] MEDS ORDERED: Fentanyl CADD 100 ML ONE ×2 (09:20→23:09)
[2021-05-03] MEDS: Ascorbic Acid 500 mg Chewable Tablet PO SCH ×2 (09:33→19:52)
[2021-05-03] MEDS: Pantoprazole 40 MG GRANULES PACKET PER TUBE SCH (09:33)
[2021-05-03] MEDS: Vancomycin 1.5 GRAM/300 ML BAG 1.5 GM in Premix Bag 1 BAG IVPB SCH ×2 (09:34→22:39)
[2021-05-03] MEDS: Floranex 1 GM Packet PER TUBE SCH (09:34)
[2021-05-03] MEDS: Enoxaparin Sodium 40 MG/0.4 ML SYRINGE SC SCH ×2 (09:34→19:52)
[2021-05-03] MEDS: Furosemide 20 MG/2 ML VIAL SLOW IVP SCH (17:24)
[2021-05-03] MEDS ORDERED: Vecuronium 10 MG VIAL IVP PRN (19:55)
[2021-05-03] MEDS ORDERED: Midazolam HCl 2 mg/2 ml Vial SLOW IVP PRN (19:55)
[2021-05-03] MEDS ORDERED: Fentanyl 100 MCG/2 ML VIAL SLOW IVP PRN (19:55)
[2021-05-03] MEDS: hydrALAZINE 20 MG/ML VIAL SLOW IVP PRN (21:09)
[2021-05-03 22:08] LABS: Vancomycin, Trough 16.2 ug/mL
[2021-05-03] MEDS: Fentanyl CADD 100 ML IV SCH (23:16)
[2021-05-04] MEDS: Labetalol HCl 100 MG/20 ML VIAL SLOW IVP PRN (00:26)
[2021-05-04] MEDS: Furosemide 20 MG/2 ML VIAL SLOW IVP SCH ×2 (01:54→07:56)
[2021-05-04] MEDS: Acetaminophen 500 MG TAB PER TUBE SCH ×3 (05:30→17:18)
[2021-05-04] MEDS: Metoclopramide HCl 10 MG/2 ML VIAL IVP SCH ×3 (05:30→21:43)
[2021-05-04] MEDS: Propofol 1,000 MG/100 ML VIAL IV PRN ×5 (05:30→20:03)
[2021-05-04] MEDS ORDERED: Lidocaine 1% w/Epinephrine 1:100K 20 ML VIAL ONE (07:32)
[2021-05-04] MEDS: Metolazone 2.5 MG TAB PO SCH (09:02)
[2021-05-04] MEDS: Pantoprazole 40 MG GRANULES PACKET PER TUBE SCH (09:02)
[2021-05-04] MEDS: Floranex 1 GM Packet PER TUBE SCH (09:03)
[2021-05-04] MEDS: Ascorbic Acid 500 mg Chewable Tablet PO SCH ×2 (09:03→20:03)
[2021-05-04] MEDS: Enoxaparin Sodium 40 MG/0.4 ML SYRINGE SC SCH ×2 (09:04→20:03)
[2021-05-04] MEDS: Vancomycin 1.5 GRAM/300 ML BAG 1.5 GM in Premix Bag 1 BAG IVPB SCH ×2 (09:04→21:41)
[2021-05-04] MEDS ORDERED: Fentanyl CADD 100 ML ONE (09:37)
[2021-05-05] MEDS: Propofol 1,000 MG/100 ML VIAL IV PRN ×4 (00:05→19:00)
[2021-05-05] MEDS: Acetaminophen 500 MG TAB PER TUBE SCH ×5 (00:06→23:57)
[2021-05-05] MEDS ORDERED: Fentanyl CADD 100 ML ONE ×2 (00:52→13:45)
[2021-05-05] MEDS: Fentanyl CADD 100 ML IV SCH (00:56)
[2021-05-05 04:58] LABS: Band 8 % (5-11); Eosinophils 3 % (0-10); Hemoglobin 8.4 g/dL (14.0-18.0); Lymphocytes 17 % (21-51); MDiff Complete? YES; Mean Corpuscular HGB CONC 34.2 g/dL (32.0-36.0); Mean Corpuscular Hemoglobin 30.9 pg (27.0-31.0); Mean Corpuscular Volume 90.4 fL (78.0-98.0); Mean Platelet Volume 7.2 fL (7.4-10.4); Metamyelocyte 3 % (0-0); Monocytes 10 % (0-10); Myelocyte 1 % (0-0); Neutrophil 58 % (42-75); Nucleated RBC 3 % (0); Platelet Count 688 thou/uL (130-400); Platelet Morphology Comment Appears Increased; Polychromasia MODERATE = 3-4 cells (100X) (0-2/hpf); RBC Distribution Width 15.1 % (11.5-14.5); Red Blood Cell (RBC) Count 2.73 mill/uL (4.70-6.10); White Blood Cell (WBC) Count 13.9 thou/uL (4.8-10.8)
[2021-05-05 05:20] LABS: Anion Gap 13 mmol/L (10-20); BUN (Urea Nitrogen) 23 mg/dL (8.4-25.7); Calc. Creatinine Clearance 178 mL/min (70-130); Calcium 8.1 mg/dL (7.8-10.44); Carbon Dioxide 28 mmol/L (22-29); Chloride 105 mmol/L (98-107); Glucose 122 mg/dL (70-105); Magnesium 2.1 mg/dL (1.6-2.6); Phosphorus 4.5 mg/dL (2.3-4.7); Potassium 3.7 mmol/L (3.5-5.1); Sodium 142 mmol/L (136-145)
[2021-05-05] MEDS: Metoclopramide HCl 10 MG/2 ML VIAL IVP SCH ×3 (06:11→22:46)
[2021-05-05] MEDS: hydrALAZINE 20 MG/ML VIAL SLOW IVP PRN (06:12)
[2021-05-05] MEDS: Enoxaparin Sodium 40 MG/0.4 ML SYRINGE SC SCH ×2 (08:53→20:10)
[2021-05-05] MEDS: Metolazone 2.5 MG TAB PO SCH (08:53)
[2021-05-05] MEDS: Ascorbic Acid 500 mg Chewable Tablet PO SCH ×2 (08:54→20:09)
[2021-05-05] MEDS: Floranex 1 GM Packet PER TUBE SCH (08:54)
[2021-05-05] MEDS: Pantoprazole 40 MG GRANULES PACKET PER TUBE SCH (08:54)
[2021-05-05] MEDS: Labetalol HCl 100 MG/20 ML VIAL SLOW IVP PRN (10:22)
[2021-05-05] MEDS: Vancomycin 1.5 GRAM/300 ML BAG 1.5 GM in Premix Bag 1 BAG IVPB SCH (10:31)
[2021-05-05] MEDS ORDERED: Metoprolol Tartrate 5 MG/5 ML VIAL IVP SCH (12:52)
[2021-05-05] MEDS ORDERED: Metoprolol Tartrate 25 MG TAB PO SCH (15:00)
[2021-05-05] MEDS ORDERED: hydrALAZINE 10 MG TAB PO SCH (15:15)
[2021-05-05 15:25] LABS: Hemoglobin 9.2 g/dL (14.0-18.0); Mean Corpuscular HGB CONC 33.2 g/dL (32.0-36.0); Mean Corpuscular Hemoglobin 29.8 pg (27.0-31.0); Mean Corpuscular Volume 89.7 fL (78.0-98.0); Mean Platelet Volume 6.9 fL (7.4-10.4); Platelet Count 722 thou/uL (130-400); RBC Distribution Width 15.1 % (11.5-14.5); Red Blood Cell (RBC) Count 3.08 mill/uL (4.70-6.10)
[2021-05-05 15:40] LABS: Anisocytosis SLIGHT = 6-15 cells (100X) (0-5/hpf); Band 9 % (5-11); Lymphocytes 3 % (21-51); MDiff Complete? YES; Metamyelocyte 4 % (0-0); Monocytes 8 % (0-10); Myelocyte 3 % (0-0); Neutrophil 70 % (42-75); Nucleated RBC 3 % (0); Platelet Morphology Comment Appears Increased; Polychromasia MODERATE = 3-4 cells (100X) (0-2/hpf); White Blood Cell (WBC) Count 16.8 thou/uL (4.8-10.8)
[2021-05-05] MEDS: Metoprolol Tartrate 25 MG TAB PO SCH (20:09)
[2021-05-05 21:31] LABS: Vancomycin, Trough 13.5 ug/mL
[2021-05-05] MEDS: VANCOMYCIN 1.75 GM/350 ML BAG 1.75 GM in Premix Bag 1 BAG IVPB SCH (22:46)
[2021-05-06] MEDS ORDERED: Fentanyl CADD 100 ML ONE ×2 (00:56→14:35)
[2021-05-06] MEDS: Fentanyl CADD 100 ML IV SCH ×2 (02:28→16:06)
[2021-05-06] MEDS: Propofol 1,000 MG/100 ML VIAL IV PRN ×3 (02:29→08:50)
[2021-05-06 04:36] LABS: Anion Gap 15 mmol/L (10-20); BUN (Urea Nitrogen) 27 mg/dL (8.4-25.7); Calc. Creatinine Clearance 186 mL/min (70-130); Calcium 8.3 mg/dL (7.8-10.44); Carbon Dioxide 29 mmol/L (22-29); Chloride 101 mmol/L (98-107); Glucose 134 mg/dL (70-105); Magnesium 1.9 mg/dL (1.6-2.6); Phosphorus 4.2 mg/dL (2.3-4.7); Potassium 3.5 mmol/L (3.5-5.1); Sodium 141 mmol/L (136-145)
[2021-05-06 05:09] LABS: Band 2 % (5-11); Eosinophils 1 % (0-10); Hemoglobin 8.5 g/dL (14.0-18.0); Lymphocytes 15 % (21-51); MDiff Complete? YES; Mean Corpuscular HGB CONC 33.5 g/dL (32.0-36.0); Mean Corpuscular Hemoglobin 30.1 pg (27.0-31.0); Mean Corpuscular Volume 89.7 fL (78.0-98.0); Metamyelocyte 1 % (0-0); Monocytes 10 % (0-10); Myelocyte 3 % (0-0); Neutrophil 67 % (42-75); Platelet Count 698 thou/uL (130-400); Platelet Morphology Comment Appears Increased; RBC Distribution Width 14.9 % (11.5-14.5); Red Blood Cell (RBC) Count 2.81 mill/uL (4.70-6.10); White Blood Cell (WBC) Count 14.2 thou/uL (4.8-10.8)
[2021-05-06] MEDS: Acetaminophen 500 MG TAB PER TUBE SCH ×3 (05:12→17:51)
[2021-05-06] MEDS: Metoclopramide HCl 10 MG/2 ML VIAL IVP SCH ×2 (05:57→16:08)
[2021-05-06] MEDS: Vancomycin 1.5 GRAM/300 ML BAG 1.5 GM in Premix Bag 1 BAG IVPB SCH (07:06)
[2021-05-06] MEDS ORDERED: Magnesium 2 GM/50 ML 2 GM in Premix Bag 1 BAG IVPB SCH (08:30)
[2021-05-06] MEDS: Floranex 1 GM Packet PER TUBE SCH (08:39)
[2021-05-06] MEDS: Pantoprazole 40 MG GRANULES PACKET PER TUBE SCH (08:39)
[2021-05-06] MEDS: Enoxaparin Sodium 40 MG/0.4 ML SYRINGE SC SCH ×2 (08:39→20:22)
[2021-05-06] MEDS: Metoprolol Tartrate 25 MG TAB PO SCH ×2 (08:40→20:22)
[2021-05-06] MEDS: Ascorbic Acid 500 mg Chewable Tablet PO SCH ×2 (08:40→20:22)
[2021-05-06] MEDS: Metolazone 2.5 MG TAB PO SCH (08:54)
[2021-05-06] MEDS: Potassium Chloride 20 MEQ in Premix Bag 1 BAG IVPB SCH ×2 (09:14→11:50)
[2021-05-06] MEDS ORDERED: Saccharomyces boulardii 250 MG CAP PO SCH (11:30)
[2021-05-06] MEDS ORDERED: Famotidine 20 MG TAB PO SCH (11:30)
[2021-05-06] MEDS: VANCOMYCIN 1.75 GM/350 ML BAG 1.75 GM in Premix Bag 1 BAG IVPB SCH (11:50)
[2021-05-06] MEDS: Labetalol HCl 100 MG/20 ML VIAL SLOW IVP PRN (16:37)
[2021-05-06] MEDS: hydrALAZINE 20 MG/ML VIAL SLOW IVP PRN (18:09)
[2021-05-06] MEDS ORDERED: Amlodipine 5 MG TAB PO SCH (19:30)
[2021-05-06] MEDS: Famotidine 20 MG TAB PO SCH (20:22)
[2021-05-06] MEDS ORDERED: Midazolam HCl 2 mg/2 ml Vial SLOW IVP SCH (20:45)
[2021-05-06 20:47] LABS: ALT (SGPT) 31 U/L (8-55); AST (SGOT) 30 U/L (5-34); Albumin 2.7 g/dL (3.5-5.0); Alkaline Phosphatase 163 U/L (40-110); Bilirubin, Direct 0.3 mg/dL (0.1-0.3); Bilirubin, Total 0.7 mg/dL (0.2-1.2); Protein, Total 5.9 g/dL (6.0-8.3)
[2021-05-06] MEDS: Oxazepam 10 MG CAP PO SCH (21:33)
[2021-05-06] MEDS: Thiamine HCl 200 MG/2 ML VIAL SLOW IVP SCH (21:49)
[2021-05-06] MEDS ORDERED: NS 0.9% w/ 20 MEQ KCL 1,000 ML/1,000 ML BAG IV SCH ×3 (23:00)
[2021-05-07] MEDS: Acetaminophen 500 MG TAB PER TUBE SCH ×5 (00:11→23:47)
[2021-05-07] MEDS: Scopolamine 1.5 mg/72 hour Patch TD SCH (00:11)
[2021-05-07] MEDS: VANCOMYCIN 1.75 GM/350 ML BAG 1.75 GM in Premix Bag 1 BAG IVPB SCH ×2 (00:11→11:25)
[2021-05-07] MEDS: Metoclopramide HCl 10 MG/2 ML VIAL IVP SCH ×4 (00:12→20:39)
[2021-05-07 05:23] LABS: #Eosinphils 0.1 thou/uL (0.0-0.7); #Neutrophils 9.3 thou/uL (1.40-6.50); %Basophils 0.3 % (0.0-1.0); %Lymphocytes 8.5 % (21.0-51.0); %Monocytes 9.1 % (0.0-10.0); %Neutrophils 81.1 % (42.0-75.0); Hemoglobin 8.5 g/dL (14.0-18.0); Mean Corpuscular HGB CONC 32.4 g/dL (32.0-36.0); Mean Corpuscular Hemoglobin 29.2 pg (27.0-31.0); Mean Corpuscular Volume 90.1 fL (78.0-98.0); Mean Platelet Volume 6.9 fL (7.4-10.4); Platelet Count 627 thou/uL (130-400); RBC Distribution Width 14.6 % (11.5-14.5); Red Blood Cell (RBC) Count 2.92 mill/uL (4.70-6.10); White Blood Cell (WBC) Count 11.4 thou/uL (4.8-10.8)
[2021-05-07 05:34] LABS: Anion Gap 15 mmol/L (10-20); BUN (Urea Nitrogen) 27 mg/dL (8.4-25.7); Calc. Creatinine Clearance 168 mL/min (70-130); Carbon Dioxide 29 mmol/L (22-29); Chloride 99 mmol/L (98-107); Glucose 132 mg/dL (70-105); Magnesium 2.2 mg/dL (1.6-2.6); Phosphorus 4.6 mg/dL (2.3-4.7); Potassium 3.6 mmol/L (3.5-5.1); Sodium 139 mmol/L (136-145)
[2021-05-07] MEDS ORDERED: Oxazepam 10 MG CAP PO PRN (06:00)
[2021-05-07] MEDS: Oxazepam 10 MG CAP PO SCH (06:43)
[2021-05-07] MEDS ORDERED: Fentanyl CADD 100 ML ONE (07:06)
[2021-05-07] MEDS: Fentanyl CADD 100 ML IV SCH (07:09)
[2021-05-07] MEDS ORDERED: Potassium Chloride 20 MEQ in Premix Bag 1 BAG IVPB SCH (08:00)
[2021-05-07] MEDS: Ascorbic Acid 500 mg Chewable Tablet PO SCH ×2 (08:38→20:39)
[2021-05-07] MEDS: Famotidine 20 MG TAB PO SCH ×2 (08:38→20:39)
[2021-05-07] MEDS: Enoxaparin Sodium 40 MG/0.4 ML SYRINGE SC SCH ×2 (08:38→20:39)
[2021-05-07] MEDS: Amlodipine 5 MG TAB PO SCH (08:38)
[2021-05-07] MEDS: Metoprolol Tartrate 25 MG TAB PO SCH ×2 (08:39→20:39)
[2021-05-07] MEDS: Saccharomyces boulardii 250 MG CAP PO SCH (08:39)
[2021-05-07] MEDS: Folic Acid 0.4 MG in Admixture Fee 1 EACH SC SCH (08:42)
[2021-05-07 10:13] LABS: Vancomycin, Trough 17.7 ug/mL
[2021-05-07] MEDS ORDERED: ceFAZolin Sodium/D5W 2 GM in Premix Bag 1 BAG IVPB SCH (13:00)
[2021-05-07] MEDS ORDERED: Rocuronium Bromide 10 MG/ML (10ML VIAL) ONE (14:17)
[2021-05-07] MEDS ORDERED: PROPOFOL 200 MG/20 ML VIAL ONE (14:17)
[2021-05-07] MEDS ORDERED: Ketorolac Tromethamine 30 MG/ML VIAL ONE (14:17)
[2021-05-07] MEDS ORDERED: Ondansetron PF 4 MG/2 ML Vial ONE (14:17)
[2021-05-07 14:45] LABS: SARS-CoV-2 PCR by NAA Not Detected (NotDetected)
[2021-05-07] MEDS: Labetalol HCl 100 MG/20 ML VIAL SLOW IVP PRN (16:26)
[2021-05-07] MEDS: Senokot S 8.6-50 MG TAB PO SCH (20:43)
[2021-05-07] MEDS: Thiamine HCl 200 MG/2 ML VIAL SLOW IVP SCH (22:20)
[2021-05-07] MEDS: ceFAZolin Sodium/D5W 2 GM in Premix Bag 1 BAG IVPB SCH (22:21)
[2021-05-08] MEDS ORDERED: Fentanyl CADD 100 ML ONE ×2 (00:48→20:42)
[2021-05-08] MEDS: Fentanyl CADD 100 ML IV SCH ×2 (00:54→20:51)
[2021-05-08 04:19] LABS: #Basophils 0.1 thou/uL (0.0-0.2); #Eosinphils 0.1 thou/uL (0.0-0.7); #Lymphocytes 0.9 thou/uL (1.20-3.40); #Monocytes 1.1 thou/uL (0.11-0.59); #Neutrophils 13.2 thou/uL (1.40-6.50); %Basophils 0.4 % (0.0-1.0); %Eosinophils 0.6 % (0.0-10.0); %Lymphocytes 5.9 % (21.0-51.0); %Monocytes 6.8 % (0.0-10.0); %Neutrophils 86.2 % (42.0-75.0); Hemoglobin 8.1 g/dL (14.0-18.0); Mean Corpuscular HGB CONC 33.3 g/dL (32.0-36.0); Mean Corpuscular Hemoglobin 29.8 pg (27.0-31.0); Mean Corpuscular Volume 89.6 fL (78.0-98.0); Mean Platelet Volume 6.4 fL (7.4-10.4); Platelet Count 663 thou/uL (130-400); RBC Distribution Width 14.6 % (11.5-14.5); Red Blood Cell (RBC) Count 2.73 mill/uL (4.70-6.10); White Blood Cell (WBC) Count 15.3 thou/uL (4.8-10.8)
[2021-05-08] MEDS: Acetaminophen 500 MG TAB PER TUBE SCH ×3 (05:25→17:47)
[2021-05-08 05:30] LABS: Anion Gap 15 mmol/L (10-20); BUN (Urea Nitrogen) 25 mg/dL (8.4-25.7); Calc. Creatinine Clearance 166 mL/min (70-130); Calcium 7.5 mg/dL (7.8-10.44); Carbon Dioxide 28 mmol/L (22-29); Chloride 102 mmol/L (98-107); Glucose 123 mg/dL (70-105); Magnesium 2.1 mg/dL (1.6-2.6); Phosphorus 3.1 mg/dL (2.3-4.7); Potassium 3.5 mmol/L (3.5-5.1); Sodium 141 mmol/L (136-145)
[2021-05-08] MEDS: ceFAZolin Sodium/D5W 2 GM in Premix Bag 1 BAG IVPB SCH ×2 (05:32→21:56)
[2021-05-08] MEDS: Metoclopramide HCl 10 MG/2 ML VIAL IVP SCH ×3 (05:33→21:12)
[2021-05-08] MEDS ORDERED: Potassium Phosphate 15 MMOL in Sodium Chloride 0.9% 250 ML 250 ML IVPB SCH (07:45)
[2021-05-08] MEDS: Enoxaparin Sodium 40 MG/0.4 ML SYRINGE SC SCH ×2 (08:17→21:11)
[2021-05-08] MEDS: Amlodipine 5 MG TAB PO SCH (08:24)
[2021-05-08] MEDS: Polyethylene Glycol 3350 17 GM Packet PO SCH (08:24)
[2021-05-08] MEDS: Saccharomyces boulardii 250 MG CAP PO SCH (08:24)
[2021-05-08] MEDS: Famotidine 20 MG TAB PO SCH ×2 (08:24→20:30)
[2021-05-08] MEDS: Folic Acid 0.4 MG in Admixture Fee 1 EACH SC SCH (08:24)
[2021-05-08] MEDS: Ascorbic Acid 500 mg Chewable Tablet PO SCH ×2 (08:24→21:11)
[2021-05-08] MEDS: Senokot S 8.6-50 MG TAB PO SCH ×2 (08:25→21:11)
[2021-05-08] MEDS: Metoprolol Tartrate 25 MG TAB PO SCH ×2 (08:26→21:11)
[2021-05-08] MEDS ORDERED: Vancomycin 1.5 GRAM/300 ML BAG 1.5 GM in Premix Bag 1 BAG IVPB SCH (08:30)
[2021-05-08] MEDS ORDERED: PROPOFOL 200 MG/20 ML VIAL ONE (09:25)
[2021-05-08] MEDS ORDERED: Rocuronium Bromide 10 MG/ML (10ML VIAL) ONE (09:25)
[2021-05-08] MEDS ORDERED: Vecuronium 10 MG VIAL ONE (09:25)
[2021-05-08] MEDS: VANCOMYCIN 1.75 GM/350 ML BAG 1.75 GM in Premix Bag 1 BAG IVPB SCH ×2 (10:30)
[2021-05-08] MEDS ORDERED: Furosemide 20 MG/2 ML VIAL ONE (15:00)
[2021-05-08] MEDS: Furosemide 20 MG/2 ML VIAL SLOW IVP SCH (15:33)
[2021-05-08 19:23] LABS: Anion Gap 14 mmol/L (10-20); BUN (Urea Nitrogen) 33 mg/dL (8.4-25.7); Calc. Creatinine Clearance 125 mL/min (70-130); Carbon Dioxide 27 mmol/L (22-29); Chloride 104 mmol/L (98-107); Glucose 157 mg/dL (70-105); Magnesium 2.2 mg/dL (1.6-2.6); Phosphorus 5.3 mg/dL (2.3-4.7); Potassium 3.7 mmol/L (3.5-5.1); Sodium 141 mmol/L (136-145)
[2021-05-08] MEDS: Thiamine HCl 200 MG/2 ML VIAL SLOW IVP SCH (21:36)
[2021-05-08] MEDS ORDERED: CEFAZOLIN 2 GM, Admixture Fee 1 EACH in Sodium Chloride 0.9% 100 ML IVPB SCH (22:00)
[2021-05-08] MEDS: Dexmedetomidine 1,000 MCG in Sodium Chloride 0.9% 250 ML 240 ML IVPB SCH (22:36)
[2021-05-09] MEDS: Acetaminophen 500 MG TAB PER TUBE SCH ×4 (00:16→17:06)
[2021-05-09] MEDS: VANCOMYCIN 1.75 GM/350 ML BAG 1.75 GM in Premix Bag 1 BAG IVPB SCH (00:16)
[2021-05-09] MEDS: Furosemide 20 MG/2 ML VIAL SLOW IVP SCH ×2 (00:17→08:22)
[2021-05-09 04:44] LABS: Anion Gap 15 mmol/L (10-20); BUN (Urea Nitrogen) 44 mg/dL (8.4-25.7); Calc. Creatinine Clearance 109 mL/min (70-130); Calcium 6.9 mg/dL (7.8-10.44); Carbon Dioxide 26 mmol/L (22-29); Chloride 104 mmol/L (98-107); Glucose 146 mg/dL (70-105); Magnesium 2.3 mg/dL (1.6-2.6); Phosphorus 3.9 mg/dL (2.3-4.7); Potassium 3.2 mmol/L (3.5-5.1); Sodium 142 mmol/L (136-145)
[2021-05-09] MEDS: Dexmedetomidine 1,000 MCG in Sodium Chloride 0.9% 250 ML 240 ML IVPB SCH ×3 (04:57→19:18)
[2021-05-09 05:09] LABS: Anisocytosis SLIGHT = 6-15 cells (100X) (0-5/hpf); Band 2 % (5-11); Lymphocytes 12 % (21-51); MDiff Complete? YES; Mean Corpuscular HGB CONC 32.2 g/dL (32.0-36.0); Mean Corpuscular Hemoglobin 28.3 pg (27.0-31.0); Mean Platelet Volume 6.6 fL (7.4-10.4); Monocytes 7 % (0-10); Neutrophil 75 % (42-75); Platelet Count 568 thou/uL (130-400); Platelet Morphology Comment Appears Increased; Polychromasia SLIGHT = 2-3 cells (100X) (0-2/hpf); RBC Distribution Width 17.6 % (11.5-14.5); Reactive Lymphocytes 4 % (0-10); Red Blood Cell (RBC) Count 2.48 mill/uL (4.70-6.10); White Blood Cell (WBC) Count 12.3 thou/uL (4.8-10.8)
[2021-05-09] MEDS: Metoclopramide HCl 10 MG/2 ML VIAL IVP SCH ×3 (06:07→22:13)
[2021-05-09] MEDS: ceFAZolin Sodium/D5W 2 GM in Premix Bag 1 BAG IVPB SCH ×2 (06:07→16:20)
[2021-05-09] MEDS ORDERED: Potassium Chloride 40 MEQ in Sodium Chloride 0.9% 250 ML 250 ML IVPB SCH (07:30)
[2021-05-09] MEDS: Polyethylene Glycol 3350 17 GM Packet PO SCH (08:15)
[2021-05-09] MEDS: Enoxaparin Sodium 40 MG/0.4 ML SYRINGE SC SCH ×2 (08:16→22:13)
[2021-05-09] MEDS: Famotidine 20 MG TAB PO SCH ×2 (08:17→20:08)
[2021-05-09] MEDS: Senokot S 8.6-50 MG TAB PO SCH ×2 (08:17→20:08)
[2021-05-09] MEDS: Ascorbic Acid 500 mg Chewable Tablet PO SCH ×2 (08:17→20:09)
[2021-05-09] MEDS: Saccharomyces boulardii 250 MG CAP PO SCH (08:17)
[2021-05-09] MEDS: Metoprolol Tartrate 25 MG TAB PO SCH ×2 (08:17→20:08)
[2021-05-09] MEDS: Amlodipine 5 MG TAB PO SCH (08:17)
[2021-05-09] MEDS: Folic Acid 0.4 MG in Admixture Fee 1 EACH SC SCH (08:18)
[2021-05-09] MEDS: Acetaminophen/Codeine 30-300mg Tablet PO SCH ×3 (08:46→20:13)
[2021-05-09 12:06] LABS: Vancomycin, Trough 32.5 ug/mL
[2021-05-09] MEDS: Cyclobenzaprine 10 MG TAB PO PRN (12:08)
[2021-05-09] MEDS: Fentanyl CADD 100 ML IV SCH (12:09)
[2021-05-09] MEDS ORDERED: CEFAZOLIN 2 GM in Sodium Chloride 0.9% 100 ML IVPB SCH (16:00)
[2021-05-09] MEDS: CEFAZOLIN 2 GM, Admixture Fee 1 EACH in Sodium Chloride 0.9% 100 ML IVPB SCH ×2 (16:20→22:13)
[2021-05-09] MEDS: Gabapentin 300 MG CAP PO SCH (20:08)
[2021-05-09] MEDS: Scopolamine 1.5 mg/72 hour Patch TD SCH (22:35)
[2021-05-10] MEDS ORDERED: Fentanyl CADD 100 ML ONE (00:11)
[2021-05-10] MEDS: Acetaminophen 500 MG TAB PER TUBE SCH ×4 (00:13→18:08)
[2021-05-10] MEDS: Fentanyl CADD 100 ML IV SCH (01:11)
[2021-05-10] MEDS: Acetaminophen/Codeine 30-300mg Tablet PO SCH ×5 (02:58→20:57)
[2021-05-10] MEDS: Dexmedetomidine 1,000 MCG in Sodium Chloride 0.9% 250 ML 240 ML IVPB SCH ×2 (02:59→05:40)
[2021-05-10 04:28] LABS: #Basophils 0.1 thou/uL (0.0-0.2); #Eosinphils 0.3 thou/uL (0.0-0.7); #Lymphocytes 1.2 thou/uL (1.20-3.40); #Monocytes 1.1 thou/uL (0.11-0.59); #Neutrophils 11.6 thou/uL (1.40-6.50); %Basophils 0.5 % (0.0-1.0); %Eosinophils 2.1 % (0.0-10.0); %Lymphocytes 8.6 % (21.0-51.0); %Monocytes 7.9 % (0.0-10.0); Hemoglobin 8.3 g/dL (14.0-18.0); Mean Corpuscular HGB CONC 31.3 g/dL (32.0-36.0); Mean Corpuscular Hemoglobin 27.2 pg (27.0-31.0); Mean Platelet Volume 6.8 fL (7.4-10.4); Platelet Count 465 thou/uL (130-400); RBC Distribution Width 18.5 % (11.5-14.5); Red Blood Cell (RBC) Count 3.05 mill/uL (4.70-6.10); White Blood Cell (WBC) Count 14.3 thou/uL (4.8-10.8)
[2021-05-10 04:39] LABS: Anion Gap 12 mmol/L (10-20); BUN (Urea Nitrogen) 42 mg/dL (8.4-25.7); Calc. Creatinine Clearance 130 mL/min (70-130); Calcium 7.7 mg/dL (7.8-10.44); Carbon Dioxide 28 mmol/L (22-29); Chloride 107 mmol/L (98-107); Glucose 135 mg/dL (70-105); Magnesium 2.4 mg/dL (1.6-2.6); Phosphorus 2.3 mg/dL (2.3-4.7); Potassium 2.8 mmol/L (3.5-5.1); Sodium 144 mmol/L (136-145)
[2021-05-10] MEDS: Metoclopramide HCl 10 MG/2 ML VIAL IVP SCH (05:06)
[2021-05-10] MEDS ORDERED: Potassium Chloride 40 MEQ in Premix Bag 1 BAG IVPB SCH (05:30)
[2021-05-10] MEDS: CEFAZOLIN 2 GM, Admixture Fee 1 EACH in Sodium Chloride 0.9% 100 ML IVPB SCH ×2 (05:40→21:01)
[2021-05-10] MEDS: Labetalol HCl 100 MG/20 ML VIAL SLOW IVP PRN ×2 (08:05→19:28)
[2021-05-10] MEDS: Metoprolol Tartrate 25 MG TAB PO SCH ×3 (08:41→21:00)
[2021-05-10] MEDS: Amlodipine 5 MG TAB PO SCH (08:41)
[2021-05-10] MEDS: Ascorbic Acid 500 mg Chewable Tablet PO SCH ×3 (08:50→20:57)
[2021-05-10] MEDS: Gabapentin 300 MG CAP PO SCH ×4 (08:51→20:55)
[2021-05-10] MEDS: Polyethylene Glycol 3350 17 GM Packet PO SCH (08:51)
[2021-05-10] MEDS: Famotidine 20 MG TAB PO SCH ×3 (08:51→20:58)
[2021-05-10] MEDS: Thiamine 100 MG TAB PO SCH (08:51)
[2021-05-10] MEDS: Folic Acid 1 MG TAB PO SCH (08:51)
[2021-05-10] MEDS: Saccharomyces boulardii 250 MG CAP PO SCH (08:51)
[2021-05-10] MEDS: Senokot S 8.6-50 MG TAB PO SCH ×3 (08:51→21:00)
[2021-05-10] MEDS: Enoxaparin Sodium 40 MG/0.4 ML SYRINGE SC SCH ×2 (08:51→20:40)
[2021-05-10 11:35] LABS: Anion Gap 13 mmol/L (10-20); BUN (Urea Nitrogen) 34 mg/dL (8.4-25.7); Calc. Creatinine Clearance 147 mL/min (70-130); Carbon Dioxide 25 mmol/L (22-29); Chloride 107 mmol/L (98-107); Glucose 139 mg/dL (70-105); Magnesium 2.3 mg/dL (1.6-2.6); Phosphorus 2.2 mg/dL (2.3-4.7); Sodium 142 mmol/L (136-145)
[2021-05-10] MEDS ORDERED: Bupivacaine 0.25% HCL 30 ML VIAL ONE (12:15)
[2021-05-10] MEDS ORDERED: EPINEPHrine 1 MG/ML AMP ONE (12:15)
[2021-05-10] MEDS ORDERED: Lidocaine 1% w/Epinephrine 1:100K 20 ML VIAL ONE ×2 (12:15→16:52)
[2021-05-10] MEDS ORDERED: Hydrocortisone 1% Cream 30 GM TUBE ONE (12:15)
[2021-05-10] MEDS ORDERED: Chlorhexidine Gluconate 15 ML UDCUP SSP ONE (12:15)
[2021-05-10] MEDS ORDERED: Potassium Phosphate 30 MMOL in Sodium Chloride 0.9% 250 ML 250 ML IVPB SCH (12:30)
[2021-05-10] MEDS ORDERED: PROPOFOL 200 MG/20 ML VIAL ONE (12:42)
[2021-05-10] MEDS ORDERED: Rocuronium Bromide 10 MG/ML (10ML VIAL) ONE (12:42)
[2021-05-10] MEDS ORDERED: Fentanyl 100 MCG/2 ML VIAL ONE (18:06)
[2021-05-10] MEDS ORDERED: Bacitracin Zinc Ointment 30 gm TUBE ONE (18:06)
[2021-05-10] MEDS ORDERED: Rocuronium Bromide 50 MG/5 ML VIAL ONE (18:06)
[2021-05-10] MEDS: Vancomycin 1 GM in Premix Bag 1 BAG IVPB SCH (19:27)
[2021-05-10] MEDS ORDERED: Morphine 4 MG/ML VIAL SLOW IVP PRN ×2 (21:24→21:29)
[2021-05-10] MEDS: Acetaminophen 325 MG/10.15 ML UDCUP PER TUBE SCH (21:25)
[2021-05-10 22:14] LABS: #Eosinphils 0.1 thou/uL (0.0-0.7); #Monocytes 1.3 thou/uL (0.11-0.59); #Neutrophils 10.8 thou/uL (1.40-6.50); %Basophils 0.2 % (0.0-1.0); %Eosinophils 0.7 % (0.0-10.0); %Lymphocytes 7.5 % (21.0-51.0); %Monocytes 9.4 % (0.0-10.0); %Neutrophils 82.2 % (42.0-75.0); Hemoglobin 8.8 g/dL (14.0-18.0); Mean Corpuscular HGB CONC 32.4 g/dL (32.0-36.0); Mean Corpuscular Hemoglobin 28.3 pg (27.0-31.0); Mean Corpuscular Volume 87.3 fL (78.0-98.0); Mean Platelet Volume 7.1 fL (7.4-10.4); Platelet Count 283 thou/uL (130-400); RBC Distribution Width 17.1 % (11.5-14.5); Red Blood Cell (RBC) Count 3.12 mill/uL (4.70-6.10); White Blood Cell (WBC) Count 13.2 thou/uL (4.8-10.8)
[2021-05-10] MEDS ORDERED: Acetaminophen 650 MG Suppository PR PRN (22:21)
[2021-05-10 22:31] LABS: Anion Gap 15 mmol/L (10-20); BUN (Urea Nitrogen) 40 mg/dL (8.4-25.7); Calc. Creatinine Clearance 121 mL/min (70-130); Calcium 7.2 mg/dL (7.8-10.44); Carbon Dioxide 24 mmol/L (22-29); Chloride 109 mmol/L (98-107); Glucose 153 mg/dL (70-105); Magnesium 2.4 mg/dL (1.6-2.6); Phosphorus 4.4 mg/dL (2.3-4.7); Sodium 144 mmol/L (136-145)
[2021-05-11] MEDS: Vancomycin 1 GM in Premix Bag 1 BAG IVPB SCH ×2 (00:22→12:16)
[2021-05-11] MEDS: Acetaminophen/Codeine 30-300mg Tablet PO SCH ×4 (00:23→21:21)
[2021-05-11] MEDS: Acetaminophen 325 MG/10.15 ML UDCUP PER TUBE SCH ×3 (00:23→18:45)
[2021-05-11 04:19] LABS: #Eosinphils 0.1 thou/uL (0.0-0.7); #Lymphocytes 0.9 thou/uL (1.20-3.40); #Monocytes 1.3 thou/uL (0.11-0.59); #Neutrophils 10.2 thou/uL (1.40-6.50); %Basophils 0.3 % (0.0-1.0); %Eosinophils 0.7 % (0.0-10.0); %Lymphocytes 7.5 % (21.0-51.0); %Monocytes 10.2 % (0.0-10.0); %Neutrophils 81.4 % (42.0-75.0); Hemoglobin 8.5 g/dL (14.0-18.0); Mean Corpuscular HGB CONC 32.8 g/dL (32.0-36.0); Mean Corpuscular Hemoglobin 28.2 pg (27.0-31.0); Mean Corpuscular Volume 86.1 fL (78.0-98.0); Mean Platelet Volume 7.1 fL (7.4-10.4); Platelet Count 297 thou/uL (130-400); RBC Distribution Width 17.3 % (11.5-14.5); Red Blood Cell (RBC) Count 3.01 mill/uL (4.70-6.10); White Blood Cell (WBC) Count 12.5 thou/uL (4.8-10.8)
[2021-05-11] MEDS ORDERED: Fentanyl CADD 100 ML ONE (04:40)
[2021-05-11] MEDS: Fentanyl CADD 100 ML IV SCH (04:48)
[2021-05-11 05:14] LABS: Anion Gap 14 mmol/L (10-20); BUN (Urea Nitrogen) 37 mg/dL (8.4-25.7); Calc. Creatinine Clearance 144 mL/min (70-130); Calcium 7.2 mg/dL (7.8-10.44); Carbon Dioxide 23 mmol/L (22-29); Chloride 112 mmol/L (98-107); Glucose 152 mg/dL (70-105); Magnesium 2.2 mg/dL (1.6-2.6); Phosphorus 2.8 mg/dL (2.3-4.7); Potassium 3.4 mmol/L (3.5-5.1); Sodium 146 mmol/L (136-145)
[2021-05-11] MEDS: CEFAZOLIN 2 GM, Admixture Fee 1 EACH in Sodium Chloride 0.9% 100 ML IVPB SCH ×3 (05:29→22:29)
[2021-05-11] MEDS: Dexmedetomidine 1,000 MCG in Sodium Chloride 0.9% 250 ML 240 ML IVPB SCH ×4 (05:29→23:40)
[2021-05-11] MEDS ORDERED: Potassium Phosphate 30 MMOL in Sodium Chloride 0.9% 250 ML 250 ML IVPB SCH ×2 (07:30→18:15)
[2021-05-11] MEDS: Enoxaparin Sodium 40 MG/0.4 ML SYRINGE SC SCH ×2 (09:22→21:20)
[2021-05-11] MEDS: Amlodipine 5 MG TAB PO SCH (10:03)
[2021-05-11] MEDS: Ascorbic Acid 500 mg Chewable Tablet PO SCH ×2 (10:03→21:21)
[2021-05-11] MEDS: Metoprolol Tartrate 25 MG TAB PO SCH ×2 (10:04→21:22)
[2021-05-11] MEDS: Gabapentin 300 MG CAP PO SCH ×3 (10:04→21:22)
[2021-05-11] MEDS: Polyethylene Glycol 3350 17 GM Packet PO SCH (10:04)
[2021-05-11] MEDS: Folic Acid 1 MG TAB PO SCH (10:04)
[2021-05-11] MEDS: Famotidine 20 MG TAB PO SCH ×2 (10:04→21:21)
[2021-05-11] MEDS: Senokot S 8.6-50 MG TAB PO SCH ×2 (10:05→21:23)
[2021-05-11] MEDS: Thiamine 100 MG TAB PO SCH (10:05)
[2021-05-11] MEDS: Saccharomyces boulardii 250 MG CAP PO SCH (10:05)
[2021-05-11] MEDS: Metamucil PACK PER TUBE SCH (11:01)
[2021-05-11 17:25] LABS: #Eosinphils 0.1 thou/uL (0.0-0.7); #Lymphocytes 1.1 thou/uL (1.20-3.40); #Monocytes 1.2 thou/uL (0.11-0.59); %Basophils 0.4 % (0.0-1.0); %Eosinophils 0.9 % (0.0-10.0); %Monocytes 9.8 % (0.0-10.0); %Neutrophils 79.9 % (42.0-75.0); Hemoglobin 8.3 g/dL (14.0-18.0); Mean Corpuscular HGB CONC 32.2 g/dL (32.0-36.0); Mean Corpuscular Hemoglobin 28.3 pg (27.0-31.0); Mean Corpuscular Volume 87.7 fL (78.0-98.0); Mean Platelet Volume 7.8 fL (7.4-10.4); Platelet Count 240 thou/uL (130-400); RBC Distribution Width 17.5 % (11.5-14.5); Red Blood Cell (RBC) Count 2.92 mill/uL (4.70-6.10); White Blood Cell (WBC) Count 12.6 thou/uL (4.8-10.8)
[2021-05-11 17:40] LABS: Phosphorus 2.7 mg/dL (2.3-4.7)
[2021-05-11 17:43] LABS: Anion Gap 17 mmol/L (10-20); BUN (Urea Nitrogen) 37 mg/dL (8.4-25.7); Calc. Creatinine Clearance 150 mL/min (70-130); Carbon Dioxide 22 mmol/L (22-29); Chloride 111 mmol/L (98-107); Glucose 157 mg/dL (70-105); Magnesium 2.4 mg/dL (1.6-2.6); Potassium 3.6 mmol/L (3.5-5.1); Sodium 146 mmol/L (136-145)
[2021-05-11 23:43] LABS: Vancomycin, Trough 11.1 ug/mL
[2021-05-12] MEDS: Vancomycin 1 GM in Premix Bag 1 BAG IVPB SCH ×2 (00:07→12:15)
[2021-05-12] MEDS: Acetaminophen 325 MG/10.15 ML UDCUP PER TUBE SCH ×4 (00:07→18:14)
[2021-05-12] MEDS: Acetaminophen/Codeine 30-300mg Tablet PO SCH ×4 (03:59→21:00)
[2021-05-12 04:29] LABS: #Basophils 0.1 thou/uL (0.0-0.2); #Eosinphils 0.5 thou/uL (0.0-0.7); #Lymphocytes 1.6 thou/uL (1.20-3.40); %Basophils 0.4 % (0.0-1.0); %Eosinophils 3.9 % (0.0-10.0); %Monocytes 8.3 % (0.0-10.0); %Neutrophils 74.3 % (42.0-75.0); Hemoglobin 7.6 g/dL (14.0-18.0); Mean Corpuscular HGB CONC 31.5 g/dL (32.0-36.0); Mean Corpuscular Hemoglobin 27.7 pg (27.0-31.0); Mean Corpuscular Volume 87.8 fL (78.0-98.0); Platelet Count 244 thou/uL (130-400); RBC Distribution Width 17.3 % (11.5-14.5); Red Blood Cell (RBC) Count 2.74 mill/uL (4.70-6.10); White Blood Cell (WBC) Count 12.1 thou/uL (4.8-10.8)
[2021-05-12 05:17] LABS: Anion Gap 15 mmol/L (10-20); BUN (Urea Nitrogen) 42 mg/dL (8.4-25.7); Calc. Creatinine Clearance 146 mL/min (70-130); Calcium 6.9 mg/dL (7.8-10.44); Carbon Dioxide 24 mmol/L (22-29); Chloride 111 mmol/L (98-107); Glucose 159 mg/dL (70-105); Magnesium 2.5 mg/dL (1.6-2.6); Phosphorus 3.5 mg/dL (2.3-4.7); Potassium 3.6 mmol/L (3.5-5.1); Sodium 146 mmol/L (136-145)
[2021-05-12] MEDS: CEFAZOLIN 2 GM, Admixture Fee 1 EACH in Sodium Chloride 0.9% 100 ML IVPB SCH (06:36)
[2021-05-12] MEDS ORDERED: Potassium Phosphate 15 MMOL in Sodium Chloride 0.9% 250 ML 250 ML IVPB SCH (07:45)
[2021-05-12] MEDS ORDERED: Fentanyl CADD 100 ML ONE (08:28)
[2021-05-12] MEDS: Fentanyl CADD 100 ML IV SCH (08:32)
[2021-05-12] MEDS: Furosemide 20 MG/2 ML VIAL SLOW IVP SCH ×2 (08:52→15:42)
[2021-05-12] MEDS: Metamucil PACK PER TUBE SCH (08:59)
[2021-05-12] MEDS: Polyethylene Glycol 3350 17 GM Packet PO SCH (09:00)
[2021-05-12] MEDS: Enoxaparin Sodium 40 MG/0.4 ML SYRINGE SC SCH ×2 (09:00→20:48)
[2021-05-12] MEDS: Ascorbic Acid 500 mg Chewable Tablet PO SCH ×2 (09:01→20:49)
[2021-05-12] MEDS: Gabapentin 300 MG CAP PO SCH ×3 (09:01→20:50)
[2021-05-12] MEDS: Senokot S 8.6-50 MG TAB PO SCH ×2 (09:01→20:49)
[2021-05-12] MEDS: Famotidine 20 MG TAB PO SCH ×2 (09:01→20:50)
[2021-05-12] MEDS: Metoprolol Tartrate 25 MG TAB PO SCH ×2 (09:02→20:49)
[2021-05-12] MEDS: Thiamine 100 MG TAB PO SCH (09:02)
[2021-05-12] MEDS: Saccharomyces boulardii 250 MG CAP PO SCH (09:02)
[2021-05-12] MEDS: Amlodipine 5 MG TAB PO SCH (09:02)
[2021-05-12] MEDS: Folic Acid 1 MG TAB PO SCH (09:02)
[2021-05-12] MEDS: Dexmedetomidine 1,000 MCG in Sodium Chloride 0.9% 250 ML 240 ML IVPB SCH ×2 (10:42→18:12)
[2021-05-12] MEDS: Scopolamine 1.5 mg/72 hour Patch TD SCH (21:01)
[2021-05-13] MEDS: Furosemide 20 MG/2 ML VIAL SLOW IVP SCH ×4 (00:16→23:11)
[2021-05-13] MEDS: Acetaminophen 325 MG/10.15 ML UDCUP PER TUBE SCH ×5 (00:18→23:11)
[2021-05-13] MEDS: Acetaminophen/Codeine 30-300mg Tablet PO SCH ×4 (02:02→20:19)
[2021-05-13] MEDS: Dexmedetomidine 1,000 MCG in Sodium Chloride 0.9% 250 ML 240 ML IVPB SCH ×3 (02:05→18:36)
[2021-05-13 04:54] LABS: #Eosinphils 0.7 thou/uL (0.0-0.7); #Lymphocytes 1.6 thou/uL (1.20-3.40); #Monocytes 0.8 thou/uL (0.11-0.59); #Neutrophils 8.7 thou/uL (1.40-6.50); %Basophils 0.4 % (0.0-1.0); %Lymphocytes 13.2 % (21.0-51.0); %Monocytes 6.8 % (0.0-10.0); %Neutrophils 73.7 % (42.0-75.0); Hemoglobin 7.8 g/dL (14.0-18.0); Mean Corpuscular HGB CONC 31.6 g/dL (32.0-36.0); Mean Corpuscular Hemoglobin 27.9 pg (27.0-31.0); Mean Corpuscular Volume 88.2 fL (78.0-98.0); Mean Platelet Volume 8.2 fL (7.4-10.4); Platelet Count 240 thou/uL (130-400); RBC Distribution Width 17.3 % (11.5-14.5); Red Blood Cell (RBC) Count 2.79 mill/uL (4.70-6.10); White Blood Cell (WBC) Count 11.8 thou/uL (4.8-10.8)
[2021-05-13 05:09] LABS: Anion Gap 14 mmol/L (10-20); BUN (Urea Nitrogen) 38 mg/dL (8.4-25.7); Calc. Creatinine Clearance 155 mL/min (70-130); Calcium 7.4 mg/dL (7.8-10.44); Carbon Dioxide 23 mmol/L (22-29); Chloride 114 mmol/L (98-107); Glucose 142 mg/dL (70-105); Magnesium 2.2 mg/dL (1.6-2.6); Potassium 3.5 mmol/L (3.5-5.1); Sodium 147 mmol/L (136-145)
[2021-05-13] MEDS ORDERED: Potassium Phosphate 15 MMOL in Sodium Chloride 0.9% 250 ML 250 ML IVPB SCH (07:15)
[2021-05-13] MEDS: Polyethylene Glycol 3350 17 GM Packet PO SCH (08:39)
[2021-05-13] MEDS: Enoxaparin Sodium 40 MG/0.4 ML SYRINGE SC SCH ×2 (08:39→20:18)
[2021-05-13] MEDS: Metamucil PACK PER TUBE SCH (08:39)
[2021-05-13] MEDS: Thiamine 100 MG TAB PO SCH (08:58)
[2021-05-13] MEDS: Amlodipine 5 MG TAB PO SCH (08:58)
[2021-05-13] MEDS: Saccharomyces boulardii 250 MG CAP PO SCH (08:58)
[2021-05-13] MEDS: Folic Acid 1 MG TAB PO SCH (08:59)
[2021-05-13] MEDS: Famotidine 20 MG TAB PO SCH ×2 (08:59→20:19)
[2021-05-13] MEDS: Ascorbic Acid 500 mg Chewable Tablet PO SCH ×2 (08:59→20:18)
[2021-05-13] MEDS: Gabapentin 300 MG CAP PO SCH ×3 (08:59→20:21)
[2021-05-13] MEDS: Metoprolol Tartrate 25 MG TAB PO SCH ×2 (08:59→20:18)
[2021-05-13] MEDS: Senokot S 8.6-50 MG TAB PO SCH ×2 (08:59→20:23)
[2021-05-13] MEDS: cloNIDine 0.1 MG TAB PO SCH ×3 (11:40→23:10)
[2021-05-13] MEDS: Labetalol HCl 100 MG/20 ML VIAL SLOW IVP PRN (12:32)
[2021-05-14] MEDS: Dexmedetomidine 1,000 MCG in Sodium Chloride 0.9% 250 ML 240 ML IVPB SCH ×3 (03:30→18:34)
[2021-05-14] MEDS: Acetaminophen/Codeine 30-300mg Tablet PO SCH ×4 (03:31→21:30)
[2021-05-14 04:20] LABS: #Basophils 0.1 thou/uL (0.0-0.2); #Eosinphils 0.8 thou/uL (0.0-0.7); #Lymphocytes 1.8 thou/uL (1.20-3.40); #Monocytes 0.8 thou/uL (0.11-0.59); #Neutrophils 8.3 thou/uL (1.40-6.50); %Basophils 0.5 % (0.0-1.0); %Eosinophils 7.2 % (0.0-10.0); %Lymphocytes 15.2 % (21.0-51.0); %Monocytes 6.6 % (0.0-10.0); %Neutrophils 70.5 % (42.0-75.0); Hemoglobin 8.1 g/dL (14.0-18.0); Mean Corpuscular HGB CONC 30.8 g/dL (32.0-36.0); Mean Corpuscular Hemoglobin 27.2 pg (27.0-31.0); Mean Corpuscular Volume 88.2 fL (78.0-98.0); Platelet Count 252 thou/uL (130-400); RBC Distribution Width 17.4 % (11.5-14.5); Red Blood Cell (RBC) Count 2.99 mill/uL (4.70-6.10); White Blood Cell (WBC) Count 11.8 thou/uL (4.8-10.8)
[2021-05-14 04:38] LABS: Anion Gap 12 mmol/L (10-20); BUN (Urea Nitrogen) 31 mg/dL (8.4-25.7); Calc. Creatinine Clearance 185 mL/min (70-130); Calcium 7.4 mg/dL (7.8-10.44); Carbon Dioxide 26 mmol/L (22-29); Chloride 114 mmol/L (98-107); Glucose 144 mg/dL (70-105); Magnesium 2.1 mg/dL (1.6-2.6); Phosphorus 2.6 mg/dL (2.3-4.7); Potassium 3.6 mmol/L (3.5-5.1); Sodium 148 mmol/L (136-145)
[2021-05-14] MEDS: Acetaminophen 325 MG/10.15 ML UDCUP PER TUBE SCH ×3 (05:57→17:26)
[2021-05-14] MEDS: cloNIDine 0.1 MG TAB PO SCH ×3 (05:57→17:25)
[2021-05-14] MEDS: Metoprolol Tartrate 25 MG TAB PO SCH ×2 (08:03→17:25)
[2021-05-14] MEDS: Enoxaparin Sodium 40 MG/0.4 ML SYRINGE SC SCH ×2 (08:03→21:32)
[2021-05-14] MEDS: Saccharomyces boulardii 250 MG CAP PO SCH (08:04)
[2021-05-14] MEDS: Folic Acid 1 MG TAB PO SCH (08:05)
[2021-05-14] MEDS: Amlodipine 5 MG TAB PO SCH (08:05)
[2021-05-14] MEDS: Gabapentin 300 MG CAP PO SCH ×3 (08:05→21:32)
[2021-05-14] MEDS: Ascorbic Acid 500 mg Chewable Tablet PO SCH ×2 (08:05→21:31)
[2021-05-14] MEDS: Furosemide 20 MG/2 ML VIAL SLOW IVP SCH (08:05)
[2021-05-14] MEDS: Famotidine 20 MG TAB PO SCH ×2 (08:05→21:32)
[2021-05-14] MEDS: Thiamine 100 MG TAB PO SCH (08:05)
[2021-05-14] MEDS ORDERED: Potassium Phosphate 15 MMOL in Sodium Chloride 0.9% 100 ML IVPB SCH (09:00)
[2021-05-14] MEDS ORDERED: Metolazone 2.5 MG TAB PO SCH (10:15)
[2021-05-14] MEDS: Labetalol HCl 100 MG/20 ML VIAL SLOW IVP PRN (11:31)
[2021-05-14] MEDS: Polyethylene Glycol 3350 17 GM Packet PO SCH (11:35)
[2021-05-14] MEDS: Senokot S 8.6-50 MG TAB PO SCH ×2 (11:35→20:05)
[2021-05-14] MEDS: Metamucil PACK PER TUBE SCH (12:09)
[2021-05-15] MEDS: Acetaminophen 325 MG/10.15 ML UDCUP PER TUBE SCH ×4 (00:48→18:41)
[2021-05-15] MEDS: cloNIDine 0.1 MG TAB PO SCH ×4 (00:48→18:31)
[2021-05-15] MEDS: Dexmedetomidine 1,000 MCG in Sodium Chloride 0.9% 250 ML 240 ML IVPB SCH ×4 (00:48→19:45)
[2021-05-15] MEDS: Metoprolol Tartrate 25 MG TAB PO SCH (03:51)
[2021-05-15] MEDS: Acetaminophen/Codeine 30-300mg Tablet PO SCH ×4 (03:51→21:14)
[2021-05-15 04:26] LABS: #Eosinphils 0.9 thou/uL (0.0-0.7); #Monocytes 0.8 thou/uL (0.11-0.59); #Neutrophils 8.2 thou/uL (1.40-6.50); %Basophils 0.2 % (0.0-1.0); %Eosinophils 7.5 % (0.0-10.0); %Lymphocytes 16.9 % (21.0-51.0); %Monocytes 6.3 % (0.0-10.0); Hemoglobin 8.4 g/dL (14.0-18.0); Mean Corpuscular HGB CONC 32.2 g/dL (32.0-36.0); Mean Corpuscular Hemoglobin 28.4 pg (27.0-31.0); Mean Corpuscular Volume 88.2 fL (78.0-98.0); Mean Platelet Volume 7.9 fL (7.4-10.4); Platelet Count 275 thou/uL (130-400); Red Blood Cell (RBC) Count 2.95 mill/uL (4.70-6.10); White Blood Cell (WBC) Count 11.9 thou/uL (4.8-10.8)
[2021-05-15 04:52] LABS: Anion Gap 12 mmol/L (10-20); BUN (Urea Nitrogen) 24 mg/dL (8.4-25.7); Calc. Creatinine Clearance 190 mL/min (70-130); Calcium 8.1 mg/dL (7.8-10.44); Carbon Dioxide 28 mmol/L (22-29); Chloride 110 mmol/L (98-107); Glucose 152 mg/dL (70-105); Magnesium 1.9 mg/dL (1.6-2.6); Phosphorus 3.1 mg/dL (2.3-4.7); Potassium 4.1 mmol/L (3.5-5.1); Sodium 146 mmol/L (136-145)
[2021-05-15] MEDS: Saccharomyces boulardii 250 MG CAP PO SCH (09:37)
[2021-05-15] MEDS: Furosemide 20 MG TAB PO SCH (09:37)
[2021-05-15] MEDS: Ascorbic Acid 500 mg Chewable Tablet PO SCH ×2 (09:37→21:15)
[2021-05-15] MEDS: Gabapentin 300 MG CAP PO SCH ×3 (09:37→21:16)
[2021-05-15] MEDS: Folic Acid 1 MG TAB PO SCH (09:37)
[2021-05-15] MEDS: Amlodipine 5 MG TAB PO SCH (09:38)
[2021-05-15] MEDS: Thiamine 100 MG TAB PO SCH (09:38)
[2021-05-15] MEDS: Famotidine 20 MG TAB PO SCH ×2 (09:38→21:15)
[2021-05-15] MEDS: Enoxaparin Sodium 40 MG/0.4 ML SYRINGE SC SCH ×2 (09:39→21:15)
[2021-05-15] MEDS: Metamucil PACK PER TUBE SCH (09:39)
[2021-05-15] MEDS: Polyethylene Glycol 3350 17 GM Packet PO SCH (09:39)
[2021-05-15] MEDS ORDERED: Metolazone 2.5 MG TAB PO SCH (10:00)
[2021-05-15] MEDS ORDERED: Metoprolol Tartrate 25 MG TAB PO SCH (17:00)
[2021-05-15] MEDS: Scopolamine 1.5 mg/72 hour Patch TD SCH (21:15)
[2021-05-16] MEDS: Acetaminophen 325 MG/10.15 ML UDCUP PER TUBE SCH ×5 (00:15→23:07)
[2021-05-16] MEDS: cloNIDine 0.1 MG TAB PO SCH ×5 (00:16→23:07)
[2021-05-16] MEDS: Dexmedetomidine 1,000 MCG in Sodium Chloride 0.9% 250 ML 240 ML IVPB SCH ×4 (00:29→20:33)
[2021-05-16] MEDS: Acetaminophen/Codeine 30-300mg Tablet PO SCH ×4 (04:27→20:19)
[2021-05-16 05:34] LABS: #Basophils 0.1 thou/uL (0.0-0.2); #Eosinphils 0.3 thou/uL (0.0-0.7); #Lymphocytes 1.4 thou/uL (1.20-3.40); #Monocytes 1.1 thou/uL (0.11-0.59); #Neutrophils 13.8 thou/uL (1.40-6.50); %Basophils 0.3 % (0.0-1.0); %Eosinophils 1.8 % (0.0-10.0); %Lymphocytes 8.6 % (21.0-51.0); %Monocytes 6.5 % (0.0-10.0); %Neutrophils 82.7 % (42.0-75.0); Hemoglobin 8.8 g/dL (14.0-18.0); Mean Corpuscular HGB CONC 30.2 g/dL (32.0-36.0); Mean Corpuscular Hemoglobin 26.4 pg (27.0-31.0); Mean Corpuscular Volume 87.5 fL (78.0-98.0); Mean Platelet Volume 8.1 fL (7.4-10.4); Platelet Count 370 thou/uL (130-400); RBC Distribution Width 17.1 % (11.5-14.5); Red Blood Cell (RBC) Count 3.33 mill/uL (4.70-6.10); White Blood Cell (WBC) Count 16.7 thou/uL (4.8-10.8)
[2021-05-16 05:54] LABS: Anion Gap 15 mmol/L (10-20); BUN (Urea Nitrogen) 22 mg/dL (8.4-25.7); Calc. Creatinine Clearance 183 mL/min (70-130); Calcium 8.4 mg/dL (7.8-10.44); Carbon Dioxide 27 mmol/L (22-29); Chloride 102 mmol/L (98-107); Glucose 185 mg/dL (70-105); Magnesium 1.7 mg/dL (1.6-2.6); Potassium 3.5 mmol/L (3.5-5.1); Sodium 140 mmol/L (136-145)
[2021-05-16] MEDS ORDERED: Magnesium 2 GM/50 ML 2 GM in Premix Bag 1 BAG IVPB SCH (08:30)
[2021-05-16] MEDS ORDERED: Potassium Chloride 20 MEQ TAB PO SCH (08:30)
[2021-05-16] MEDS ORDERED: Metolazone 2.5 MG TAB PO SCH (08:30)
[2021-05-16] MEDS: Folic Acid 1 MG TAB PO SCH (08:49)
[2021-05-16] MEDS: Gabapentin 300 MG CAP PO SCH ×3 (08:49→20:19)
[2021-05-16] MEDS: Famotidine 20 MG TAB PO SCH ×2 (08:49→20:19)
[2021-05-16] MEDS: Saccharomyces boulardii 250 MG CAP PO SCH (08:49)
[2021-05-16] MEDS: Amlodipine 5 MG TAB PO SCH (08:50)
[2021-05-16] MEDS: Lisinopril 20 MG TAB PO SCH (08:50)
[2021-05-16] MEDS: Furosemide 20 MG TAB PO SCH (08:50)
[2021-05-16] MEDS: Ascorbic Acid 500 mg Chewable Tablet PO SCH ×2 (08:50→20:20)
[2021-05-16] MEDS: Enoxaparin Sodium 40 MG/0.4 ML SYRINGE SC SCH ×2 (08:50→20:20)
[2021-05-16] MEDS: Thiamine 100 MG TAB PO SCH (08:50)
[2021-05-16] MEDS: Metamucil PACK PER TUBE SCH (08:54)
[2021-05-16] MEDS: Polyethylene Glycol 3350 17 GM Packet PO SCH (08:55)
[2021-05-16] MEDS: Labetalol HCl 100 MG/20 ML VIAL SLOW IVP PRN (09:04)
[2021-05-16] MEDS ORDERED: Midazolam HCl 2 mg/2 ml Vial SLOW IVP SCH ×2 (10:15)
[2021-05-16 10:56] LABS: Bilirubin Negative (Negative); Blood, Urine Moderate (Negative); Glucose, Urine (Dipstick) Negative (Negative); Ketone, Urine Negative (Negative); Leukocyte Negative (Negative); Nitrite Negative (Negative); Protein, Urine (Dipstick) Trace mg/dL (Neg-Trace); Specific Gravity, Urine 1.025 (1.005-1.030); Urobilinogen 0.2 mg/dL (Less than 2); pH, Urine 5.5 (5.0-9.0)
[2021-05-16 11:00] LABS: Clarity Clear (Clear)
[2021-05-16 11:03] LABS: Bacteria/HPF None Seen HPF (None Seen); Squamous Epithelial None Seen HPF (0-3); WBC/HPF None Seen HPF (0-3)
[2021-05-16 11:11] LABS: Urine Culture Reflex No No
[2021-05-16] MEDS ORDERED: Atropine Sulfate 1 mg/10 ml Syringe ONE (13:43)
[2021-05-16] MEDS ORDERED: MEROPENEM 1 GM/50 ML 1 GM in Premix Bag 1 BAG IVPB SCH (14:30)
[2021-05-16] MEDS ORDERED: Calcium Chloride 13.6 MEQ in Sodium Chloride 0.9% 100 ML IVPB SCH (14:45)
[2021-05-16] MEDS ORDERED: Vancomycin HCl 2.5 GM in Sodium Chloride 0.9% 500 ML IVPB SCH (14:45)
[2021-05-16] MEDS: Morphine 4 MG/ML VIAL SLOW IVP PRN (17:11)
[2021-05-16] MEDS ORDERED: Polyethylene Glycol 3350 17 GM Packet PER TUBE SCH (21:15)
[2021-05-16] MEDS: MEROPENEM 1 GM/50 ML 1 GM in Premix Bag 1 BAG IVPB SCH (23:07)
[2021-05-17] MEDS: Acetaminophen/Codeine 30-300mg Tablet PO SCH ×4 (02:43→21:34)
[2021-05-17] MEDS: Vancomycin 1.5 GRAM/300 ML BAG 1.5 GM in Premix Bag 1 BAG IVPB SCH ×2 (02:44→15:00)
[2021-05-17] MEDS: Dexmedetomidine 1,000 MCG in Sodium Chloride 0.9% 250 ML 240 ML IVPB SCH ×4 (02:48→21:35)
[2021-05-17] MEDS: Morphine 4 MG/ML VIAL SLOW IVP PRN (05:57)
[2021-05-17] MEDS: Acetaminophen 325 MG/10.15 ML UDCUP PER TUBE SCH ×4 (05:57→23:11)
[2021-05-17] MEDS: MEROPENEM 1 GM/50 ML 1 GM in Premix Bag 1 BAG IVPB SCH ×3 (06:00→23:11)
[2021-05-17] MEDS: cloNIDine 0.1 MG TAB PO SCH ×3 (06:37→17:39)
[2021-05-17] MEDS: Enoxaparin Sodium 40 MG/0.4 ML SYRINGE SC SCH ×2 (08:33→21:35)
[2021-05-17] MEDS: Furosemide 20 MG TAB PO SCH (08:33)
[2021-05-17] MEDS: Ascorbic Acid 500 mg Chewable Tablet PO SCH ×2 (08:33→21:33)
[2021-05-17] MEDS: Polyethylene Glycol 3350 17 GM Packet PO SCH (08:33)
[2021-05-17] MEDS: Folic Acid 1 MG TAB PO SCH (08:34)
[2021-05-17] MEDS: Amlodipine 5 MG TAB PO SCH (08:34)
[2021-05-17] MEDS: Famotidine 20 MG TAB PO SCH ×2 (08:34→21:33)
[2021-05-17] MEDS: Gabapentin 300 MG CAP PO SCH ×3 (08:34→21:33)
[2021-05-17] MEDS: Lisinopril 20 MG TAB PO SCH (08:35)
[2021-05-17] MEDS: Metamucil PACK PER TUBE SCH (08:35)
[2021-05-17] MEDS: Thiamine 100 MG TAB PO SCH (08:35)
[2021-05-17] MEDS: Saccharomyces boulardii 250 MG CAP PO SCH (08:35)
[2021-05-17 08:39] LABS: #Basophils 0.1 thou/uL (0.0-0.2); #Eosinphils 0.7 thou/uL (0.0-0.7); #Lymphocytes 1.6 thou/uL (1.20-3.40); #Monocytes 1.2 thou/uL (0.11-0.59); #Neutrophils 15.7 thou/uL (1.40-6.50); %Basophils 0.6 % (0.0-1.0); %Eosinophils 3.8 % (0.0-10.0); %Lymphocytes 8.3 % (21.0-51.0); %Monocytes 6.2 % (0.0-10.0); %Neutrophils 81.2 % (42.0-75.0); Anion Gap 12 mmol/L (10-20); BUN (Urea Nitrogen) 28 mg/dL (8.4-25.7); Band 8 % (5-11); Calc. Creatinine Clearance 183 mL/min (70-130); Calcium 7.8 mg/dL (7.8-10.44); Carbon Dioxide 30 mmol/L (22-29); Chloride 102 mmol/L (98-107); Eosinophils 2 % (0-10); Glucose 151 mg/dL (70-105); Hypochromia SLIGHT = 6-15 cells (100X) (0-5/hpf); Lymphocytes 13 % (21-51); MDiff Complete? YES; Magnesium 2.1 mg/dL (1.6-2.6); Mean Corpuscular HGB CONC 29.3 g/dL (32.0-36.0); Mean Corpuscular Hemoglobin 25.9 pg (27.0-31.0); Mean Corpuscular Volume 88.4 fL (78.0-98.0); Mean Platelet Volume 7.4 fL (7.4-10.4); Monocytes 4 % (0-10); Myelocyte 1 % (0-0); Neutrophil 72 % (42-75); Nucleated RBC 1 % (0); Phosphorus 2.8 mg/dL (2.3-4.7); Platelet Count 449 thou/uL (130-400); Platelet Morphology Comment Appears Increased; Polychromasia SLIGHT = 2-3 cells (100X) (0-2/hpf); Potassium 3.3 mmol/L (3.5-5.1); RBC Distribution Width 16.9 % (11.5-14.5); Red Blood Cell (RBC) Count 3.09 mill/uL (4.70-6.10); Sodium 141 mmol/L (136-145); Vacuoles SLIGHT; White Blood Cell (WBC) Count 19.4 thou/uL (4.8-10.8)
[2021-05-17] MEDS ORDERED: Potassium Phosphate 30 MMOL in Sodium Chloride 0.9% 250 ML 250 ML IVPB SCH (10:00)
[2021-05-18] MEDS: cloNIDine 0.1 MG TAB PO SCH ×5 (00:28→23:59)
[2021-05-18] MEDS: Acetaminophen/Codeine 30-300mg Tablet PO SCH ×4 (03:08→20:49)
[2021-05-18] MEDS: Vancomycin 1.5 GRAM/300 ML BAG 1.5 GM in Premix Bag 1 BAG IVPB SCH ×2 (03:08→14:39)
[2021-05-18] MEDS: Dexmedetomidine 1,000 MCG in Sodium Chloride 0.9% 250 ML 240 ML IVPB SCH ×3 (03:50→21:31)
[2021-05-18 04:27] LABS: #Basophils 0.1 thou/uL (0.0-0.2); #Eosinphils 0.8 thou/uL (0.0-0.7); #Lymphocytes 1.6 thou/uL (1.20-3.40); #Monocytes 1.1 thou/uL (0.11-0.59); #Neutrophils 10.5 thou/uL (1.40-6.50); %Basophils 0.6 % (0.0-1.0); %Eosinophils 5.5 % (0.0-10.0); %Lymphocytes 11.4 % (21.0-51.0); %Monocytes 8.1 % (0.0-10.0); %Neutrophils 74.4 % (42.0-75.0); Mean Corpuscular HGB CONC 31.4 g/dL (32.0-36.0); Mean Corpuscular Hemoglobin 27.6 pg (27.0-31.0); Mean Corpuscular Volume 87.8 fL (78.0-98.0); Mean Platelet Volume 7.7 fL (7.4-10.4); Platelet Count 353 thou/uL (130-400); Red Blood Cell (RBC) Count 2.55 mill/uL (4.70-6.10); White Blood Cell (WBC) Count 14.1 thou/uL (4.8-10.8)
[2021-05-18 05:22] LABS: Anion Gap 12 mmol/L (10-20); BUN (Urea Nitrogen) 28 mg/dL (8.4-25.7); Calc. Creatinine Clearance 181 mL/min (70-130); Calcium 7.5 mg/dL (7.8-10.44); Carbon Dioxide 30 mmol/L (22-29); Chloride 103 mmol/L (98-107); Glucose 145 mg/dL (70-105); Magnesium 2.1 mg/dL (1.6-2.6); Phosphorus 3.1 mg/dL (2.3-4.7); Potassium 3.1 mmol/L (3.5-5.1); Sodium 142 mmol/L (136-145)
[2021-05-18] MEDS: Acetaminophen 325 MG/10.15 ML UDCUP PER TUBE SCH ×4 (06:19→23:06)
[2021-05-18] MEDS: MEROPENEM 1 GM/50 ML 1 GM in Premix Bag 1 BAG IVPB SCH ×3 (06:20→22:13)
[2021-05-18] MEDS: Amlodipine 5 MG TAB PO SCH (08:44)
[2021-05-18] MEDS: Thiamine 100 MG TAB PO SCH (08:44)
[2021-05-18] MEDS: Lisinopril 20 MG TAB PO SCH (08:44)
[2021-05-18] MEDS: Furosemide 20 MG TAB PO SCH (08:44)
[2021-05-18] MEDS: Folic Acid 1 MG TAB PO SCH (08:44)
[2021-05-18] MEDS: Ascorbic Acid 500 mg Chewable Tablet PO SCH ×2 (08:44→20:49)
[2021-05-18] MEDS: Gabapentin 300 MG CAP PO SCH ×3 (08:44→20:50)
[2021-05-18] MEDS: Enoxaparin Sodium 40 MG/0.4 ML SYRINGE SC SCH ×2 (08:45→20:49)
[2021-05-18] MEDS: Famotidine 20 MG TAB PO SCH ×2 (08:45→20:50)
[2021-05-18] MEDS: Polyethylene Glycol 3350 17 GM Packet PO SCH (08:45)
[2021-05-18] MEDS: Saccharomyces boulardii 250 MG CAP PO SCH (08:45)
[2021-05-18] MEDS: Metamucil PACK PER TUBE SCH (08:47)
[2021-05-18] MEDS ORDERED: Potassium Chloride 40 MEQ in Premix Bag 1 BAG IVPB SCH (09:00)
[2021-05-18 14:26] LABS: Vancomycin, Trough 23.2 ug/mL
[2021-05-18 14:29] LABS: SARS-CoV-2 PCR by NAA Not Detected (NotDetected)
[2021-05-18 18:38] LABS: Magnesium 2.1 mg/dL (1.6-2.6)
[2021-05-18] MEDS: Scopolamine 1.5 mg/72 hour Patch TD SCH (22:13)
[2021-05-18] MEDS: Morphine 4 MG/ML VIAL SLOW IVP PRN (23:06)
[2021-05-19] MEDS: Acetaminophen/Codeine 30-300mg Tablet PO SCH ×4 (02:36→22:03)
[2021-05-19] MEDS ORDERED: VANCOMYCIN 1.25 GM/250 ML BAG 1.25 GM in Premix Bag 1 BAG IVPB SCH (03:00)
[2021-05-19 04:08] LABS: #Basophils 0.1 thou/uL (0.0-0.2); #Eosinphils 0.7 thou/uL (0.0-0.7); #Lymphocytes 1.4 thou/uL (1.20-3.40); #Monocytes 1.2 thou/uL (0.11-0.59); #Neutrophils 10.1 thou/uL (1.40-6.50); %Basophils 0.5 % (0.0-1.0); %Lymphocytes 10.1 % (21.0-51.0); %Monocytes 8.7 % (0.0-10.0); %Neutrophils 75.7 % (42.0-75.0); Hemoglobin 8.1 g/dL (14.0-18.0); Mean Corpuscular HGB CONC 31.9 g/dL (32.0-36.0); Mean Corpuscular Volume 87.8 fL (78.0-98.0); Mean Platelet Volume 7.9 fL (7.4-10.4); Platelet Count 397 thou/uL (130-400); RBC Distribution Width 16.6 % (11.5-14.5); Red Blood Cell (RBC) Count 2.88 mill/uL (4.70-6.10); White Blood Cell (WBC) Count 13.4 thou/uL (4.8-10.8)
[2021-05-19 04:16] LABS: Anion Gap 12 mmol/L (10-20); BUN (Urea Nitrogen) 27 mg/dL (8.4-25.7); Calc. Creatinine Clearance 178 mL/min (70-130); Calcium 7.9 mg/dL (7.8-10.44); Carbon Dioxide 29 mmol/L (22-29); Chloride 104 mmol/L (98-107); Glucose 143 mg/dL (70-105); Phosphorus 2.8 mg/dL (2.3-4.7); Potassium 3.4 mmol/L (3.5-5.1); Sodium 142 mmol/L (136-145)
[2021-05-19] MEDS: Acetaminophen 325 MG/10.15 ML UDCUP PER TUBE SCH ×3 (05:16→17:08)
[2021-05-19] MEDS: cloNIDine 0.1 MG TAB PO SCH ×3 (05:17→17:08)
[2021-05-19] MEDS: Morphine 4 MG/ML VIAL SLOW IVP PRN ×2 (05:17→11:47)
[2021-05-19] MEDS: Dexmedetomidine 1,000 MCG in Sodium Chloride 0.9% 250 ML 240 ML IVPB SCH ×3 (05:28→22:43)
[2021-05-19] MEDS: MEROPENEM 1 GM/50 ML 1 GM in Premix Bag 1 BAG IVPB SCH ×3 (07:18→22:02)
[2021-05-19] MEDS ORDERED: Potassium Chloride 40 MEQ in Premix Bag 1 BAG IVPB SCH (07:45)
[2021-05-19] MEDS: Metamucil PACK PER TUBE SCH (08:18)
[2021-05-19] MEDS: Enoxaparin Sodium 40 MG/0.4 ML SYRINGE SC SCH ×2 (08:18→22:02)
[2021-05-19] MEDS: Polyethylene Glycol 3350 17 GM Packet PO SCH (08:19)
[2021-05-19] MEDS: Saccharomyces boulardii 250 MG CAP PO SCH (08:20)
[2021-05-19] MEDS: Furosemide 20 MG TAB PO SCH (08:20)
[2021-05-19] MEDS: Amlodipine 5 MG TAB PO SCH (08:22)
[2021-05-19] MEDS: Ascorbic Acid 500 mg Chewable Tablet PO SCH ×2 (08:22→22:01)
[2021-05-19] MEDS: Thiamine 100 MG TAB PO SCH (08:22)
[2021-05-19] MEDS: Folic Acid 1 MG TAB PO SCH (08:22)
[2021-05-19] MEDS: Famotidine 20 MG TAB PO SCH ×2 (08:27→22:02)
[2021-05-19] MEDS: Gabapentin 300 MG CAP PO SCH ×3 (08:28→22:01)
[2021-05-19] MEDS: Lisinopril 20 MG TAB PO SCH (08:54)
[2021-05-19] MEDS: Vancomycin HCl 1.25 GM in Sodium Chloride 0.9% 250 ML 250 ML IVPB SCH (14:05)
[2021-05-20] MEDS: cloNIDine 0.1 MG TAB PO SCH ×4 (00:38→17:00)
[2021-05-20] MEDS: Acetaminophen 325 MG/10.15 ML UDCUP PER TUBE SCH ×5 (00:39→23:11)
[2021-05-20] MEDS: Acetaminophen/Codeine 30-300mg Tablet PO SCH ×4 (03:45→20:13)
[2021-05-20] MEDS: Vancomycin HCl 1.25 GM in Sodium Chloride 0.9% 250 ML 250 ML IVPB SCH ×2 (03:46→15:54)
[2021-05-20 04:30] LABS: Band 2 % (5-11); Hemoglobin 7.7 g/dL (14.0-18.0); Hypochromia SLIGHT = 6-15 cells (100X) (0-5/hpf); Lymphocytes 19 % (21-51); MDiff Complete? YES; Mean Corpuscular HGB CONC 30.7 g/dL (32.0-36.0); Mean Corpuscular Hemoglobin 27.1 pg (27.0-31.0); Mean Corpuscular Volume 88.4 fL (78.0-98.0); Mean Platelet Volume 7.4 fL (7.4-10.4); Monocytes 3 % (0-10); Neutrophil 76 % (42-75); Platelet Count 402 thou/uL (130-400); Platelet Morphology Comment Appears Increased; RBC Distribution Width 16.6 % (11.5-14.5); Red Blood Cell (RBC) Count 2.85 mill/uL (4.70-6.10); White Blood Cell (WBC) Count 11.5 thou/uL (4.8-10.8)
[2021-05-20 04:40] LABS: Anion Gap 10 mmol/L (10-20); BUN (Urea Nitrogen) 28 mg/dL (8.4-25.7); Calc. Creatinine Clearance 178 mL/min (70-130); Calcium 7.9 mg/dL (7.8-10.44); Carbon Dioxide 30 mmol/L (22-29); Chloride 107 mmol/L (98-107); Glucose 133 mg/dL (70-105); Magnesium 2.3 mg/dL (1.6-2.6); Phosphorus 3.2 mg/dL (2.3-4.7); Potassium 3.9 mmol/L (3.5-5.1); Sodium 143 mmol/L (136-145)
[2021-05-20] MEDS: MEROPENEM 1 GM/50 ML 1 GM in Premix Bag 1 BAG IVPB SCH ×3 (06:37→23:10)
[2021-05-20] MEDS: Dexmedetomidine 1,000 MCG in Sodium Chloride 0.9% 250 ML 240 ML IVPB SCH ×2 (07:03→17:25)
[2021-05-20] MEDS: Metamucil PACK PER TUBE SCH (08:44)
[2021-05-20] MEDS: Furosemide 20 MG TAB PO SCH (08:46)
[2021-05-20] MEDS: Ascorbic Acid 500 mg Chewable Tablet PO SCH ×2 (08:46→20:14)
[2021-05-20] MEDS: Amlodipine 5 MG TAB PO SCH (08:46)
[2021-05-20] MEDS: Folic Acid 1 MG TAB PO SCH (08:46)
[2021-05-20] MEDS: Famotidine 20 MG TAB PO SCH ×2 (08:47→20:14)
[2021-05-20] MEDS: Saccharomyces boulardii 250 MG CAP PO SCH (08:47)
[2021-05-20] MEDS: Thiamine 100 MG TAB PO SCH (08:47)
[2021-05-20] MEDS: Gabapentin 300 MG CAP PO SCH ×3 (08:47→20:14)
[2021-05-20] MEDS: Lisinopril 20 MG TAB PO SCH (08:47)
[2021-05-20] MEDS: Enoxaparin Sodium 40 MG/0.4 ML SYRINGE SC SCH ×2 (08:48→20:14)
[2021-05-20] MEDS: Polyethylene Glycol 3350 17 GM Packet PO SCH (08:49)
[2021-05-20] MEDS: Morphine 4 MG/ML VIAL SLOW IVP PRN ×2 (10:05→14:21)
[2021-05-21] MEDS: cloNIDine 0.1 MG TAB PO SCH ×2 (00:13→06:40)
[2021-05-21] MEDS: Vancomycin 1 GM in Premix Bag 1 BAG IVPB SCH ×2 (03:27→15:19)
[2021-05-21] MEDS: Acetaminophen/Codeine 30-300mg Tablet PO SCH ×4 (03:27→20:25)
[2021-05-21 04:11] LABS: #Basophils 0.1 thou/uL (0.0-0.2); #Eosinphils 0.3 thou/uL (0.0-0.7); #Lymphocytes 0.8 thou/uL (1.20-3.40); #Monocytes 0.7 thou/uL (0.11-0.59); #Neutrophils 10.6 thou/uL (1.40-6.50); %Basophils 0.5 % (0.0-1.0); %Eosinophils 2.4 % (0.0-10.0); %Lymphocytes 6.3 % (21.0-51.0); %Monocytes 5.8 % (0.0-10.0); Mean Corpuscular HGB CONC 30.2 g/dL (32.0-36.0); Mean Corpuscular Hemoglobin 27.4 pg (27.0-31.0); Mean Corpuscular Volume 90.8 fL (78.0-98.0); Mean Platelet Volume 7.2 fL (7.4-10.4); Platelet Count 449 thou/uL (130-400); RBC Distribution Width 16.8 % (11.5-14.5); Red Blood Cell (RBC) Count 2.92 mill/uL (4.70-6.10); White Blood Cell (WBC) Count 12.5 thou/uL (4.8-10.8)
[2021-05-21 04:29] LABS: Anion Gap 13 mmol/L (10-20); BUN (Urea Nitrogen) 28 mg/dL (8.4-25.7); Calc. Creatinine Clearance 198 mL/min (70-130); Carbon Dioxide 29 mmol/L (22-29); Chloride 107 mmol/L (98-107); Glucose 166 mg/dL (70-105); Magnesium 2.3 mg/dL (1.6-2.6); Phosphorus 3.5 mg/dL (2.3-4.7); Sodium 145 mmol/L (136-145)
[2021-05-21] MEDS: Acetaminophen 325 MG/10.15 ML UDCUP PER TUBE SCH ×4 (06:42→23:44)
[2021-05-21] MEDS: MEROPENEM 1 GM/50 ML 1 GM in Premix Bag 1 BAG IVPB SCH ×3 (06:42→23:45)
[2021-05-21] MEDS: Enoxaparin Sodium 40 MG/0.4 ML SYRINGE SC SCH ×2 (08:19→20:26)
[2021-05-21] MEDS: Ascorbic Acid 500 mg Chewable Tablet PO SCH ×2 (08:19→20:26)
[2021-05-21] MEDS: Gabapentin 300 MG CAP PO SCH ×3 (08:21→20:27)
[2021-05-21] MEDS: Lisinopril 20 MG TAB PO SCH (08:21)
[2021-05-21] MEDS: Saccharomyces boulardii 250 MG CAP PO SCH (08:21)
[2021-05-21] MEDS: Folic Acid 1 MG TAB PO SCH (08:21)
[2021-05-21] MEDS: Famotidine 20 MG TAB PO SCH ×2 (08:21→20:26)
[2021-05-21] MEDS: Amlodipine 5 MG TAB PO SCH (08:21)
[2021-05-21] MEDS: Furosemide 20 MG TAB PO SCH (08:21)
[2021-05-21] MEDS: Polyethylene Glycol 3350 17 GM Packet PO SCH (08:22)
[2021-05-21] MEDS: Metamucil PACK PER TUBE SCH (08:22)
[2021-05-21] MEDS: Thiamine 100 MG TAB PO SCH (08:22)
[2021-05-21] MEDS ORDERED: Amlodipine 5 MG TAB PO SCH (09:00)
[2021-05-21] MEDS ORDERED: Metolazone 2.5 MG TAB PO SCH (09:15)
[2021-05-21 11:09] LABS: Base Excess (BEa) 3.7 mEq/L (-2.0 to +3.0); CO2 Tension 40.9 mmHg (35.0-45.0); Calcium, Ionized (arterial) 1.11 mmol/L (1.12-1.30); Hemoglobin (Hb) 8.8 g/dL (14.0-18.0); O2 Tension (PaO2), arterial 62.4 mmHg (80.0-100.0); Potassium - ABG Lab 4.17 mmol/L (3.70-5.30); pH, Arterial 7.45 (7.35-7.45)
[2021-05-21 11:12] LABS: ALV-art Gradient 207.325 mmHg (0-20); Puncture Site LRA
[2021-05-21] MEDS: Morphine 4 MG/ML VIAL SLOW IVP PRN ×2 (15:01→22:15)
[2021-05-21] MEDS: Scopolamine 1.5 mg/72 hour Patch TD SCH (20:27)
[2021-05-21] MEDS ORDERED: diphenhydrAMINE 12.5 MG/5 ML UDCUP PO PRN (22:27)
[2021-05-22] MEDS: Morphine 4 MG/ML VIAL SLOW IVP PRN (02:18)
[2021-05-22] MEDS: hydrALAZINE 20 MG/ML VIAL SLOW IVP PRN (02:22)
[2021-05-22] MEDS: Acetaminophen/Codeine 30-300mg Tablet PO SCH ×4 (02:22→20:45)
[2021-05-22] MEDS: Vancomycin 1 GM in Premix Bag 1 BAG IVPB SCH ×2 (02:23→15:56)
[2021-05-22 04:41] LABS: #Basophils 0.1 thou/uL (0.0-0.2); #Eosinphils 0.5 thou/uL (0.0-0.7); #Lymphocytes 1.7 thou/uL (1.20-3.40); #Monocytes 1.1 thou/uL (0.11-0.59); #Neutrophils 11.1 thou/uL (1.40-6.50); %Basophils 0.4 % (0.0-1.0); %Eosinophils 3.4 % (0.0-10.0); %Lymphocytes 11.7 % (21.0-51.0); %Monocytes 7.4 % (0.0-10.0); %Neutrophils 77.1 % (42.0-75.0); Hemoglobin 7.8 g/dL (14.0-18.0); Mean Corpuscular HGB CONC 30.9 g/dL (32.0-36.0); Mean Corpuscular Hemoglobin 27.6 pg (27.0-31.0); Mean Corpuscular Volume 89.2 fL (78.0-98.0); Mean Platelet Volume 7.2 fL (7.4-10.4); Platelet Count 508 thou/uL (130-400); RBC Distribution Width 17.2 % (11.5-14.5); Red Blood Cell (RBC) Count 2.84 mill/uL (4.70-6.10); White Blood Cell (WBC) Count 14.3 thou/uL (4.8-10.8)
[2021-05-22] MEDS: Acetaminophen 325 MG/10.15 ML UDCUP PER TUBE SCH ×4 (05:06→23:54)
[2021-05-22 05:13] LABS: Anion Gap 12 mmol/L (10-20); BUN (Urea Nitrogen) 26 mg/dL (8.4-25.7); Calc. Creatinine Clearance 191 mL/min (70-130); Carbon Dioxide 29 mmol/L (22-29); Chloride 103 mmol/L (98-107); Glucose 134 mg/dL (70-105); Magnesium 2.2 mg/dL (1.6-2.6); Phosphorus 2.2 mg/dL (2.3-4.7); Potassium 3.3 mmol/L (3.5-5.1); Sodium 141 mmol/L (136-145)
[2021-05-22] MEDS: Furosemide 20 MG TAB PO SCH (09:15)
[2021-05-22] MEDS: Metolazone 2.5 MG TAB PO SCH (09:16)
[2021-05-22] MEDS: Saccharomyces boulardii 250 MG CAP PO SCH (09:16)
[2021-05-22] MEDS: Amlodipine 10 MG TAB PO SCH (09:17)
[2021-05-22] MEDS: Lisinopril 20 MG TAB PO SCH (09:17)
[2021-05-22] MEDS: Thiamine 100 MG TAB PO SCH (09:17)
[2021-05-22] MEDS: Famotidine 20 MG TAB PO SCH ×2 (09:17→20:47)
[2021-05-22] MEDS: Gabapentin 300 MG CAP PO SCH ×3 (09:17→20:47)
[2021-05-22] MEDS: Ascorbic Acid 500 mg Chewable Tablet PO SCH ×2 (09:17→20:45)
[2021-05-22] MEDS: Folic Acid 1 MG TAB PO SCH (09:17)
[2021-05-22] MEDS: Polyethylene Glycol 3350 17 GM Packet PO SCH (09:18)
[2021-05-22] MEDS: Metamucil PACK PER TUBE SCH (09:18)
[2021-05-22] MEDS: Enoxaparin Sodium 40 MG/0.4 ML SYRINGE SC SCH ×2 (09:18→20:47)
[2021-05-22] MEDS: Meropenem 1 GM in Sodium Chloride 0.9% 100 ML IVPB SCH ×3 (11:45→23:54)
[2021-05-22 14:37] LABS: Vancomycin, Trough 21.7 ug/mL
[2021-05-22] MEDS: Vancomycin HCl 750 MG in Sodium Chloride 0.9% 250 ML 250 ML IVPB SCH (19:19)
[2021-05-22] MEDS: methylPREDNISolone Sod Succ 40 MG VIAL IVP SCH ×2 (19:20→23:53)
[2021-05-22] MEDS: Simethicone Chewable 80 MG TAB PO SCH (20:45)
[2021-05-23] MEDS: hydrALAZINE 20 MG/ML VIAL SLOW IVP PRN (00:03)
[2021-05-23] MEDS: Acetaminophen/Codeine 30-300mg Tablet PO SCH ×4 (03:59→20:29)
[2021-05-23 04:34] LABS: #Eosinphils 0.1 thou/uL (0.0-0.7); #Lymphocytes 0.7 thou/uL (1.20-3.40); #Monocytes 0.2 thou/uL (0.11-0.59); #Neutrophils 11.8 thou/uL (1.40-6.50); %Basophils 0.3 % (0.0-1.0); %Eosinophils 0.9 % (0.0-10.0); %Lymphocytes 5.1 % (21.0-51.0); %Monocytes 1.8 % (0.0-10.0); %Neutrophils 91.9 % (42.0-75.0); Hemoglobin 8.3 g/dL (14.0-18.0); Mean Corpuscular HGB CONC 31.6 g/dL (32.0-36.0); Mean Corpuscular Hemoglobin 28.5 pg (27.0-31.0); Mean Platelet Volume 7.3 fL (7.4-10.4); Platelet Count 461 thou/uL (130-400); RBC Distribution Width 17.1 % (11.5-14.5); Red Blood Cell (RBC) Count 2.91 mill/uL (4.70-6.10); White Blood Cell (WBC) Count 12.8 thou/uL (4.8-10.8)
[2021-05-23] MEDS: Vancomycin HCl 750 MG in Sodium Chloride 0.9% 250 ML 250 ML IVPB SCH ×2 (04:42→15:29)
[2021-05-23 05:17] LABS: Anion Gap 11 mmol/L (10-20); BUN (Urea Nitrogen) 29 mg/dL (8.4-25.7); Calc. Creatinine Clearance 195 mL/min (70-130); Calcium 7.6 mg/dL (7.8-10.44); Carbon Dioxide 33 mmol/L (22-29); Chloride 101 mmol/L (98-107); Glucose 176 mg/dL (70-105); Magnesium 2.4 mg/dL (1.6-2.6); Phosphorus 4.3 mg/dL (2.3-4.7); Potassium 3.4 mmol/L (3.5-5.1); Sodium 142 mmol/L (136-145)
[2021-05-23] MEDS: methylPREDNISolone Sod Succ 40 MG VIAL IVP SCH ×3 (06:33→16:57)
[2021-05-23] MEDS: Acetaminophen 325 MG/10.15 ML UDCUP PER TUBE SCH ×3 (06:34→16:57)
[2021-05-23] MEDS ORDERED: Potassium Chloride 40 MEQ in Sodium Chloride 0.9% 250 ML 250 ML IVPB SCH (07:30)
[2021-05-23] MEDS: Enoxaparin Sodium 40 MG/0.4 ML SYRINGE SC SCH ×2 (07:42→20:31)
[2021-05-23] MEDS: Polyethylene Glycol 3350 17 GM Packet PO SCH (07:43)
[2021-05-23] MEDS: Saccharomyces boulardii 250 MG CAP PO SCH (07:43)
[2021-05-23] MEDS: Meropenem 1 GM in Sodium Chloride 0.9% 100 ML IVPB SCH ×2 (07:43→15:29)
[2021-05-23] MEDS: Metamucil PACK PER TUBE SCH (07:43)
[2021-05-23] MEDS: Folic Acid 1 MG TAB PO SCH (07:44)
[2021-05-23] MEDS: Lisinopril 20 MG TAB PO SCH (07:44)
[2021-05-23] MEDS: Ascorbic Acid 500 mg Chewable Tablet PO SCH ×2 (07:44→20:30)
[2021-05-23] MEDS: Thiamine 100 MG TAB PO SCH (07:44)
[2021-05-23] MEDS: Simethicone Chewable 80 MG TAB PO SCH ×2 (07:44→20:30)
[2021-05-23] MEDS: Gabapentin 300 MG CAP PO SCH ×3 (07:44→20:30)
[2021-05-23] MEDS: Furosemide 20 MG TAB PO SCH (07:44)
[2021-05-23] MEDS: Metolazone 2.5 MG TAB PO SCH (07:48)
[2021-05-23] MEDS: Amlodipine 10 MG TAB PO SCH (07:50)
[2021-05-23] MEDS: Famotidine 20 MG TAB PO SCH ×2 (07:50→20:31)
[2021-05-23] MEDS: Neostigmine 0.5 MG in Pre-Filled Syringe 1 EACH SC SCH (20:29)
[2021-05-24] MEDS: methylPREDNISolone Sod Succ 40 MG VIAL IVP SCH ×4 (00:21→17:08)
[2021-05-24] MEDS: Meropenem 1 GM in Sodium Chloride 0.9% 100 ML IVPB SCH ×3 (00:21→15:03)
[2021-05-24] MEDS: Acetaminophen 325 MG/10.15 ML UDCUP PER TUBE SCH ×4 (00:21→17:08)
[2021-05-24] MEDS: Morphine 4 MG/ML VIAL SLOW IVP PRN (02:02)
[2021-05-24] MEDS: hydrALAZINE 20 MG/ML VIAL SLOW IVP PRN (02:34)
[2021-05-24] MEDS: Neostigmine 0.5 MG in Pre-Filled Syringe 1 EACH SC SCH ×4 (03:47→20:41)
[2021-05-24] MEDS: Vancomycin HCl 750 MG in Sodium Chloride 0.9% 250 ML 250 ML IVPB SCH ×2 (03:47→15:40)
[2021-05-24] MEDS: Acetaminophen/Codeine 30-300mg Tablet PO SCH ×4 (03:48→20:47)
[2021-05-24 04:40] LABS: #Eosinphils 0.1 thou/uL (0.0-0.7); #Lymphocytes 0.6 thou/uL (1.20-3.40); #Monocytes 0.5 thou/uL (0.11-0.59); #Neutrophils 10.7 thou/uL (1.40-6.50); %Eosinophils 0.6 % (0.0-10.0); %Lymphocytes 5.2 % (21.0-51.0); %Monocytes 4.1 % (0.0-10.0); Mean Corpuscular HGB CONC 31.4 g/dL (32.0-36.0); Mean Corpuscular Hemoglobin 28.3 pg (27.0-31.0); Mean Corpuscular Volume 90.1 fL (78.0-98.0); Mean Platelet Volume 7.3 fL (7.4-10.4); Platelet Count 428 thou/uL (130-400); RBC Distribution Width 17.1 % (11.5-14.5); Red Blood Cell (RBC) Count 2.82 mill/uL (4.70-6.10); White Blood Cell (WBC) Count 11.9 thou/uL (4.8-10.8)
[2021-05-24 04:56] LABS: Anion Gap 12 mmol/L (10-20); BUN (Urea Nitrogen) 36 mg/dL (8.4-25.7); Calc. Creatinine Clearance 213 mL/min (70-130); Calcium 7.6 mg/dL (7.8-10.44); Carbon Dioxide 35 mmol/L (22-29); Chloride 102 mmol/L (98-107); Glucose 157 mg/dL (70-105); Magnesium 2.5 mg/dL (1.6-2.6); Phosphorus 3.6 mg/dL (2.3-4.7); Potassium 3.6 mmol/L (3.5-5.1); Sodium 145 mmol/L (136-145)
[2021-05-24] MEDS: Furosemide 20 MG TAB PO SCH (07:47)
[2021-05-24] MEDS: Amlodipine 10 MG TAB PO SCH (07:48)
[2021-05-24] MEDS: Famotidine 20 MG TAB PO SCH ×2 (07:48→20:42)
[2021-05-24] MEDS: Folic Acid 1 MG TAB PO SCH (07:48)
[2021-05-24] MEDS: Gabapentin 300 MG CAP PO SCH ×3 (07:48→20:42)
[2021-05-24] MEDS: Ascorbic Acid 500 mg Chewable Tablet PO SCH ×2 (07:48→20:42)
[2021-05-24] MEDS: Lisinopril 20 MG TAB PO SCH (07:48)
[2021-05-24] MEDS: Simethicone Chewable 80 MG TAB PO SCH ×2 (07:49→20:43)
[2021-05-24] MEDS: Saccharomyces boulardii 250 MG CAP PO SCH (07:49)
[2021-05-24] MEDS: Thiamine 100 MG TAB PO SCH (07:50)
[2021-05-24] MEDS: Polyethylene Glycol 3350 17 GM Packet PO SCH (07:50)
[2021-05-24] MEDS: Enoxaparin Sodium 40 MG/0.4 ML SYRINGE SC SCH ×2 (07:50→20:42)
[2021-05-24] MEDS ORDERED: Potassium Chloride 20 MEQ TAB PO SCH (08:15)
[2021-05-24] MEDS ORDERED: Metolazone 2.5 MG TAB PO SCH (08:30)
[2021-05-24 15:36] LABS: Vancomycin, Trough 18.8 ug/mL
[2021-05-25] MEDS: Meropenem 1 GM in Sodium Chloride 0.9% 100 ML IVPB SCH ×4 (00:27→23:25)
[2021-05-25] MEDS: hydrALAZINE 20 MG/ML VIAL SLOW IVP PRN ×3 (00:36→10:16)
[2021-05-25] MEDS: Acetaminophen 325 MG/10.15 ML UDCUP PER TUBE SCH ×4 (03:32→17:10)
[2021-05-25] MEDS: Acetaminophen/Codeine 30-300mg Tablet PO SCH ×4 (03:42→20:22)
[2021-05-25] MEDS: Vancomycin HCl 750 MG in Sodium Chloride 0.9% 250 ML 250 ML IVPB SCH ×2 (03:42→14:46)
[2021-05-25 04:47] LABS: #Eosinphils 0.1 thou/uL (0.0-0.7); #Lymphocytes 0.8 thou/uL (1.20-3.40); #Monocytes 0.6 thou/uL (0.11-0.59); #Neutrophils 9.6 thou/uL (1.40-6.50); %Basophils 0.2 % (0.0-1.0); %Eosinophils 0.7 % (0.0-10.0); %Monocytes 5.4 % (0.0-10.0); %Neutrophils 86.8 % (42.0-75.0); Hemoglobin 7.8 g/dL (14.0-18.0); Mean Corpuscular HGB CONC 31.4 g/dL (32.0-36.0); Mean Corpuscular Volume 89.1 fL (78.0-98.0); Mean Platelet Volume 7.2 fL (7.4-10.4); Platelet Count 417 thou/uL (130-400); RBC Distribution Width 17.2 % (11.5-14.5); Red Blood Cell (RBC) Count 2.79 mill/uL (4.70-6.10)
[2021-05-25 06:17] LABS: Albumin 2.9 g/dL (3.5-5.0); Anion Gap 11 mmol/L (10-20); BUN (Urea Nitrogen) 37 mg/dL (8.4-25.7); Calc. Creatinine Clearance 205 mL/min (70-130); Calcium 7.4 mg/dL (7.8-10.44); Carbon Dioxide 35 mmol/L (22-29); Chloride 99 mmol/L (98-107); Glucose 175 mg/dL (70-105); Magnesium 2.5 mg/dL (1.6-2.6); Phosphorus 2.4 mg/dL (2.3-4.7); Potassium 3.8 mmol/L (3.5-5.1); Sodium 141 mmol/L (136-145)
[2021-05-25] MEDS: Enoxaparin Sodium 40 MG/0.4 ML SYRINGE SC SCH ×2 (07:19→20:21)
[2021-05-25] MEDS: Simethicone Chewable 80 MG TAB PO SCH ×2 (07:20→20:22)
[2021-05-25] MEDS: Lisinopril 20 MG TAB PO SCH (07:21)
[2021-05-25] MEDS: Folic Acid 1 MG TAB PO SCH (07:21)
[2021-05-25] MEDS: Famotidine 20 MG TAB PO SCH ×2 (07:21→20:22)
[2021-05-25] MEDS: Gabapentin 300 MG CAP PO SCH ×3 (07:21→20:21)
[2021-05-25] MEDS: Ascorbic Acid 500 mg Chewable Tablet PO SCH ×2 (07:21→20:21)
[2021-05-25] MEDS: Thiamine 100 MG TAB PO SCH (07:21)
[2021-05-25] MEDS: Furosemide 20 MG TAB PO SCH (07:22)
[2021-05-25] MEDS: Polyethylene Glycol 3350 17 GM Packet PO SCH (07:22)
[2021-05-25] MEDS: Amlodipine 10 MG TAB PO SCH (07:22)
[2021-05-25] MEDS: Saccharomyces boulardii 250 MG CAP PO SCH (07:22)
[2021-05-25] MEDS ORDERED: Potassium Phosphate 30 MMOL in Sodium Chloride 0.9% 250 ML 250 ML IVPB SCH ×2 (07:30→21:30)
[2021-05-25] MEDS ORDERED: cloNIDine 0.2 MG TAB PO SCH (10:30)
[2021-05-25] MEDS ORDERED: hydrALAZINE 25 MG TAB PO SCH (10:31)
[2021-05-25 20:12] LABS: #Eosinphils 0.1 thou/uL (0.0-0.7); #Monocytes 0.9 thou/uL (0.11-0.59); #Neutrophils 9.7 thou/uL (1.40-6.50); %Basophils 0.1 % (0.0-1.0); %Eosinophils 1.1 % (0.0-10.0); %Lymphocytes 8.8 % (21.0-51.0); %Monocytes 7.7 % (0.0-10.0); %Neutrophils 82.4 % (42.0-75.0); Mean Corpuscular HGB CONC 31.9 g/dL (32.0-36.0); Mean Corpuscular Hemoglobin 28.4 pg (27.0-31.0); Mean Corpuscular Volume 89.1 fL (78.0-98.0); Platelet Count 392 thou/uL (130-400); RBC Distribution Width 17.2 % (11.5-14.5); Red Blood Cell (RBC) Count 2.83 mill/uL (4.70-6.10); White Blood Cell (WBC) Count 11.8 thou/uL (4.8-10.8)
[2021-05-25 20:39] LABS: Anion Gap 11 mmol/L (10-20); BUN (Urea Nitrogen) 34 mg/dL (8.4-25.7); Calc. Creatinine Clearance 217 mL/min (70-130); Calcium 7.4 mg/dL (7.8-10.44); Carbon Dioxide 37 mmol/L (22-29); Chloride 99 mmol/L (98-107); Glucose 133 mg/dL (70-105); Magnesium 2.5 mg/dL (1.6-2.6); Phosphorus 2.9 mg/dL (2.3-4.7); Potassium 3.6 mmol/L (3.5-5.1); Sodium 143 mmol/L (136-145)
[2021-05-25] MEDS ORDERED: Furosemide 20 MG/2 ML VIAL SLOW IVP SCH (21:00)
[2021-05-26] MEDS: Acetaminophen 325 MG/10.15 ML UDCUP PER TUBE SCH ×4 (00:10→17:09)
[2021-05-26] MEDS: Vancomycin HCl 750 MG in Sodium Chloride 0.9% 250 ML 250 ML IVPB SCH ×2 (04:20→15:37)
[2021-05-26] MEDS: Acetaminophen/Codeine 30-300mg Tablet PO SCH ×4 (04:20→20:57)
[2021-05-26 04:26] LABS: #Eosinphils 0.2 thou/uL (0.0-0.7); #Lymphocytes 1.1 thou/uL (1.20-3.40); #Monocytes 0.7 thou/uL (0.11-0.59); #Neutrophils 8.3 thou/uL (1.40-6.50); %Lymphocytes 10.4 % (21.0-51.0); %Monocytes 6.9 % (0.0-10.0); %Neutrophils 80.7 % (42.0-75.0); Hemoglobin 7.9 g/dL (14.0-18.0); Mean Corpuscular HGB CONC 30.4 g/dL (32.0-36.0); Mean Corpuscular Hemoglobin 27.3 pg (27.0-31.0); Mean Corpuscular Volume 89.9 fL (78.0-98.0); Mean Platelet Volume 6.9 fL (7.4-10.4); Platelet Count 372 thou/uL (130-400); RBC Distribution Width 17.1 % (11.5-14.5); Red Blood Cell (RBC) Count 2.88 mill/uL (4.70-6.10); White Blood Cell (WBC) Count 10.3 thou/uL (4.8-10.8)
[2021-05-26 04:47] LABS: Vancomycin, Trough 13.5 ug/mL
[2021-05-26 04:59] LABS: Anion Gap 16 mmol/L (10-20); Carbon Dioxide 32 mmol/L (22-29); Chloride 98 mmol/L (98-107); Potassium 3.8 mmol/L (3.5-5.1); Sodium 142 mmol/L (136-145)
[2021-05-26 05:04] LABS: BUN (Urea Nitrogen) 31 mg/dL (8.4-25.7); Calc. Creatinine Clearance 224 mL/min (70-130); Calcium 7.4 mg/dL (7.8-10.44); Glucose 125 mg/dL (70-105); Magnesium 2.5 mg/dL (1.6-2.6); Phosphorus 3.6 mg/dL (2.3-4.7)
[2021-05-26] MEDS: Enoxaparin Sodium 40 MG/0.4 ML SYRINGE SC SCH ×2 (07:20→20:56)
[2021-05-26] MEDS: Meropenem 1 GM in Sodium Chloride 0.9% 100 ML IVPB SCH ×2 (07:20→14:00)
[2021-05-26] MEDS: Polyethylene Glycol 3350 17 GM Packet PO SCH (07:20)
[2021-05-26] MEDS: Famotidine 20 MG TAB PO SCH ×2 (07:21→20:58)
[2021-05-26] MEDS: Amlodipine 10 MG TAB PO SCH (07:21)
[2021-05-26] MEDS: Simethicone Chewable 80 MG TAB PO SCH ×2 (07:21→20:57)
[2021-05-26] MEDS: Lisinopril 20 MG TAB PO SCH (07:22)
[2021-05-26] MEDS: Furosemide 20 MG TAB PO SCH (07:22)
[2021-05-26] MEDS: Gabapentin 300 MG CAP PO SCH ×3 (07:22→20:57)
[2021-05-26] MEDS: Thiamine 100 MG TAB PO SCH (07:22)
[2021-05-26] MEDS: Saccharomyces boulardii 250 MG CAP PO SCH (07:23)
[2021-05-26] MEDS: Folic Acid 1 MG TAB PO SCH (07:23)
[2021-05-26] MEDS: hydrALAZINE 25 MG TAB PO SCH (07:23)
[2021-05-26] MEDS: Ascorbic Acid 500 mg Chewable Tablet PO SCH ×2 (07:23→20:57)
[2021-05-26 16:17] LABS: SARS-CoV-2 PCR by NAA Not Detected (NotDetected)
[2021-05-27] MEDS: Acetaminophen 325 MG/10.15 ML UDCUP PER TUBE SCH ×4 (00:14→17:56)
[2021-05-27] MEDS: Meropenem 1 GM in Sodium Chloride 0.9% 100 ML IVPB SCH ×3 (00:14→14:22)
[2021-05-27 03:36] LABS: #Eosinphils 0.3 thou/uL (0.0-0.7); #Lymphocytes 0.9 thou/uL (1.20-3.40); #Monocytes 0.7 thou/uL (0.11-0.59); %Eosinophils 3.1 % (0.0-10.0); %Lymphocytes 10.3 % (21.0-51.0); %Monocytes 7.5 % (0.0-10.0); %Neutrophils 79.1 % (42.0-75.0); Hemoglobin 8.1 g/dL (14.0-18.0); Mean Corpuscular HGB CONC 31.6 g/dL (32.0-36.0); Mean Corpuscular Hemoglobin 28.6 pg (27.0-31.0); Mean Corpuscular Volume 90.6 fL (78.0-98.0); Mean Platelet Volume 7.1 fL (7.4-10.4); Platelet Count 329 thou/uL (130-400); RBC Distribution Width 16.9 % (11.5-14.5); Red Blood Cell (RBC) Count 2.84 mill/uL (4.70-6.10); White Blood Cell (WBC) Count 8.8 thou/uL (4.8-10.8)
[2021-05-27 03:52] LABS: Vancomycin, Trough 11.7 ug/mL
[2021-05-27 04:01] LABS: BUN (Urea Nitrogen) 23 mg/dL (8.4-25.7); Calc. Creatinine Clearance 240 mL/min (70-130); Glucose 112 mg/dL (70-105); Magnesium 2.5 mg/dL (1.6-2.6); Phosphorus 2.8 mg/dL (2.3-4.7)
[2021-05-27 04:03] LABS: Anion Gap 10 mmol/L (10-20); Carbon Dioxide 38 mmol/L (22-29); Chloride 100 mmol/L (98-107); Sodium 144 mmol/L (136-145)
[2021-05-27] MEDS: Acetaminophen/Codeine 30-300mg Tablet PO SCH ×4 (04:47→20:27)
[2021-05-27] MEDS: hydrALAZINE 20 MG/ML VIAL SLOW IVP PRN (04:48)
[2021-05-27] MEDS: VANCOMYCIN 1.25 GM/250 ML BAG 1.25 GM in Premix Bag 1 BAG IVPB SCH ×2 (04:49→16:05)
[2021-05-27] MEDS: Vancomycin HCl 750 MG in Sodium Chloride 0.9% 250 ML 250 ML IVPB SCH (06:25)
[2021-05-27] MEDS: Enoxaparin Sodium 40 MG/0.4 ML SYRINGE SC SCH ×2 (07:45→20:28)
[2021-05-27] MEDS: Famotidine 20 MG TAB PO SCH ×2 (07:46→20:28)
[2021-05-27] MEDS: Simethicone Chewable 80 MG TAB PO SCH ×2 (07:46→20:28)
[2021-05-27] MEDS: Gabapentin 300 MG CAP PO SCH ×3 (07:46→20:28)
[2021-05-27] MEDS: Polyethylene Glycol 3350 17 GM Packet PO SCH (07:46)
[2021-05-27] MEDS: Thiamine 100 MG TAB PO SCH (07:47)
[2021-05-27] MEDS: Metolazone 2.5 MG TAB PO SCH (07:47)
[2021-05-27] MEDS: Saccharomyces boulardii 250 MG CAP PO SCH (07:47)
[2021-05-27] MEDS: Lisinopril 20 MG TAB PO SCH (07:47)
[2021-05-27] MEDS: Furosemide 20 MG TAB PO SCH (07:47)
[2021-05-27] MEDS: hydrALAZINE 25 MG TAB PO SCH (07:47)
[2021-05-27] MEDS: Folic Acid 1 MG TAB PO SCH (07:48)
[2021-05-27] MEDS: Ascorbic Acid 500 mg Chewable Tablet PO SCH ×2 (07:48→20:28)
[2021-05-27] MEDS: Amlodipine 10 MG TAB PO SCH (07:48)
[2021-05-28] MEDS: Meropenem 1 GM in Sodium Chloride 0.9% 100 ML IVPB SCH ×4 (00:18→23:55)
[2021-05-28] MEDS: Acetaminophen 325 MG/10.15 ML UDCUP PER TUBE SCH ×5 (00:18→23:56)
[2021-05-28] MEDS: VANCOMYCIN 1.25 GM/250 ML BAG 1.25 GM in Premix Bag 1 BAG IVPB SCH ×2 (03:57→17:35)
[2021-05-28] MEDS: Acetaminophen/Codeine 30-300mg Tablet PO SCH ×4 (03:57→20:03)
[2021-05-28 04:41] LABS: #Eosinphils 0.3 thou/uL (0.0-0.7); #Lymphocytes 0.8 thou/uL (1.20-3.40); #Monocytes 0.7 thou/uL (0.11-0.59); #Neutrophils 6.2 thou/uL (1.40-6.50); %Basophils 0.1 % (0.0-1.0); %Eosinophils 4.1 % (0.0-10.0); %Lymphocytes 10.1 % (21.0-51.0); %Monocytes 8.3 % (0.0-10.0); %Neutrophils 77.5 % (42.0-75.0); Hemoglobin 8.2 g/dL (14.0-18.0); Mean Corpuscular HGB CONC 30.9 g/dL (32.0-36.0); Mean Corpuscular Hemoglobin 28.3 pg (27.0-31.0); Mean Corpuscular Volume 91.5 fL (78.0-98.0); Mean Platelet Volume 7.2 fL (7.4-10.4); Platelet Count 295 thou/uL (130-400); RBC Distribution Width 16.6 % (11.5-14.5); Red Blood Cell (RBC) Count 2.91 mill/uL (4.70-6.10); White Blood Cell (WBC) Count 8.1 thou/uL (4.8-10.8)
[2021-05-28 04:59] LABS: BUN (Urea Nitrogen) 20 mg/dL (8.4-25.7); Calc. Creatinine Clearance 244 mL/min (70-130); Glucose 117 mg/dL (70-105); Magnesium 2.3 mg/dL (1.6-2.6); Phosphorus 2.7 mg/dL (2.3-4.7)
[2021-05-28 05:08] LABS: Anion Gap 13 mmol/L (10-20); Carbon Dioxide 38 mmol/L (22-29); Chloride 95 mmol/L (98-107); Potassium 3.7 mmol/L (3.5-5.1); Sodium 142 mmol/L (136-145)
[2021-05-28] MEDS: Potassium Chloride 20 MEQ in Premix Bag 1 BAG IVPB SCH ×2 (08:00→09:23)
[2021-05-28] MEDS: Metolazone 2.5 MG TAB PO SCH (08:00)
[2021-05-28] MEDS: Amlodipine 10 MG TAB PO SCH (08:02)
[2021-05-28] MEDS: Ascorbic Acid 500 mg Chewable Tablet PO SCH ×2 (08:02→20:02)
[2021-05-28] MEDS: Enoxaparin Sodium 40 MG/0.4 ML SYRINGE SC SCH ×2 (08:02→20:04)
[2021-05-28] MEDS: Famotidine 20 MG TAB PO SCH ×2 (08:02→20:04)
[2021-05-28] MEDS: Saccharomyces boulardii 250 MG CAP PO SCH (08:03)
[2021-05-28] MEDS: Furosemide 20 MG TAB PO SCH (08:03)
[2021-05-28] MEDS: Folic Acid 1 MG TAB PO SCH (08:03)
[2021-05-28] MEDS: Gabapentin 300 MG CAP PO SCH ×3 (08:03→20:02)
[2021-05-28] MEDS: Lisinopril 20 MG TAB PO SCH (08:04)
[2021-05-28] MEDS: Thiamine 100 MG TAB PO SCH (08:04)
[2021-05-28] MEDS: hydrALAZINE 25 MG TAB PO SCH (08:04)
[2021-05-28] MEDS: Simethicone Chewable 80 MG TAB PO SCH ×2 (08:04→20:03)
[2021-05-28] MEDS: Polyethylene Glycol 3350 17 GM Packet PO SCH (08:04)
[2021-05-28] MEDS: AcetaZOLAMIDE 250 MG TAB PO SCH ×3 (09:23→20:03)
[2021-05-28 17:28] LABS: Vancomycin, Trough 17.7 ug/mL
[2021-05-29] MEDS: Acetaminophen/Codeine 30-300mg Tablet PO SCH ×2 (04:13→08:03)
[2021-05-29] MEDS: VANCOMYCIN 1.25 GM/250 ML BAG 1.25 GM in Premix Bag 1 BAG IVPB SCH ×2 (04:13→17:07)
[2021-05-29 04:48] LABS: BUN (Urea Nitrogen) 18 mg/dL (8.4-25.7); Calc. Creatinine Clearance 223 mL/min (70-130); Calcium 8.6 mg/dL (7.8-10.44); Glucose 119 mg/dL (70-105)
[2021-05-29 04:57] LABS: Anion Gap 13 mmol/L (10-20); Carbon Dioxide 35 mmol/L (22-29); Chloride 97 mmol/L (98-107); Potassium 3.6 mmol/L (3.5-5.1); Sodium 141 mmol/L (136-145)
[2021-05-29] MEDS: Acetaminophen 325 MG/10.15 ML UDCUP PER TUBE SCH ×3 (05:56→17:07)
[2021-05-29] MEDS: Meropenem 1 GM in Sodium Chloride 0.9% 100 ML IVPB SCH (07:49)
[2021-05-29] MEDS ORDERED: Potassium Phosphate 30 MMOL in Sodium Chloride 0.9% 250 ML 250 ML IVPB SCH (08:00)
[2021-05-29] MEDS: AcetaZOLAMIDE 250 MG TAB PO SCH ×3 (08:04→20:10)
[2021-05-29] MEDS: Amlodipine 10 MG TAB PO SCH (08:04)
[2021-05-29] MEDS: Gabapentin 300 MG CAP PO SCH ×2 (08:05→20:10)
[2021-05-29] MEDS: Folic Acid 1 MG TAB PO SCH (08:05)
[2021-05-29] MEDS: Famotidine 20 MG TAB PO SCH ×2 (08:05→20:10)
[2021-05-29] MEDS: Enoxaparin Sodium 40 MG/0.4 ML SYRINGE SC SCH ×2 (08:05→20:10)
[2021-05-29] MEDS: Ascorbic Acid 500 mg Chewable Tablet PO SCH ×2 (08:05→20:10)
[2021-05-29] MEDS: Lisinopril 20 MG TAB PO SCH (08:06)
[2021-05-29] MEDS: Polyethylene Glycol 3350 17 GM Packet PO SCH (08:06)
[2021-05-29] MEDS: hydrALAZINE 25 MG TAB PO SCH (08:06)
[2021-05-29] MEDS: Thiamine 100 MG TAB PO SCH (08:07)
[2021-05-29] MEDS: Metolazone 2.5 MG TAB PO SCH (08:07)
[2021-05-29] MEDS: Simethicone Chewable 80 MG TAB PO SCH ×2 (08:07→20:10)
[2021-05-29] MEDS: Saccharomyces boulardii 250 MG CAP PO SCH (08:07)
[2021-05-30] MEDS: Acetaminophen 325 MG/10.15 ML UDCUP PER TUBE SCH ×4 (00:02→19:12)
[2021-05-30 03:50] LABS: #Eosinphils 0.5 thou/uL (0.0-0.7); #Lymphocytes 0.9 thou/uL (1.20-3.40); #Monocytes 0.4 thou/uL (0.11-0.59); #Neutrophils 5.7 thou/uL (1.40-6.50); %Basophils 0.1 % (0.0-1.0); %Eosinophils 6.2 % (0.0-10.0); %Lymphocytes 11.8 % (21.0-51.0); %Monocytes 5.3 % (0.0-10.0); %Neutrophils 76.5 % (42.0-75.0); Hemoglobin 9.2 g/dL (14.0-18.0); Mean Corpuscular HGB CONC 31.8 g/dL (32.0-36.0); Mean Corpuscular Hemoglobin 28.7 pg (27.0-31.0); Mean Corpuscular Volume 90.3 fL (78.0-98.0); Mean Platelet Volume 7.5 fL (7.4-10.4); Platelet Count 285 thou/uL (130-400); RBC Distribution Width 16.5 % (11.5-14.5); White Blood Cell (WBC) Count 7.5 thou/uL (4.8-10.8)
[2021-05-30 04:10] LABS: Anion Gap 9 mmol/L (10-20); BUN (Urea Nitrogen) 21 mg/dL (8.4-25.7); Calc. Creatinine Clearance 223 mL/min (70-130); Calcium 8.5 mg/dL (7.8-10.44); Carbon Dioxide 33 mmol/L (22-29); Chloride 101 mmol/L (98-107); Glucose 107 mg/dL (70-105); Magnesium 2.2 mg/dL (1.6-2.6); Phosphorus 2.9 mg/dL (2.3-4.7); Potassium 3.7 mmol/L (3.5-5.1); Sodium 139 mmol/L (136-145)
[2021-05-30] MEDS: Amlodipine 10 MG TAB PO SCH (08:03)
[2021-05-30] MEDS: Lisinopril 20 MG TAB PO SCH (08:03)
[2021-05-30] MEDS: Saccharomyces boulardii 250 MG CAP PO SCH (08:03)
[2021-05-30] MEDS: hydrALAZINE 25 MG TAB PO SCH (08:03)
[2021-05-30] MEDS: Ascorbic Acid 500 mg Chewable Tablet PO SCH ×2 (08:03→21:30)
[2021-05-30] MEDS: Gabapentin 300 MG CAP PO SCH ×2 (08:04→21:30)
[2021-05-30] MEDS: Folic Acid 1 MG TAB PO SCH (08:04)
[2021-05-30] MEDS: Thiamine 100 MG TAB PO SCH (08:04)
[2021-05-30] MEDS: Simethicone Chewable 80 MG TAB PO SCH ×2 (08:04→21:31)
[2021-05-30] MEDS: Famotidine 20 MG TAB PO SCH ×2 (08:04→21:30)
[2021-05-30] MEDS: Polyethylene Glycol 3350 17 GM Packet PO SCH (08:05)
[2021-05-30] MEDS: Enoxaparin Sodium 40 MG/0.4 ML SYRINGE SC SCH ×2 (08:05→21:31)
[2021-05-30] MEDS ORDERED: AcetaZOLAMIDE 250 MG TAB PO SCH (09:00)
[2021-05-30] MEDS ORDERED: Potassium Chloride 40 MEQ in Premix Bag 1 BAG IVPB SCH (19:00)
[2021-05-30] MEDS: AcetaZOLAMIDE 250 MG TAB PER TUBE SCH (21:31)
[2021-05-30] MEDS: Potassium Chloride 20 MEQ in Premix Bag 1 BAG IVPB SCH ×2 (21:32→22:57)
[2021-05-31] MEDS: Acetaminophen 325 MG/10.15 ML UDCUP PER TUBE SCH ×4 (00:39→18:14)
[2021-05-31 04:38] LABS: Anion Gap 9 mmol/L (10-20); BUN (Urea Nitrogen) 20 mg/dL (8.4-25.7); Calc. Creatinine Clearance 222 mL/min (70-130); Calcium 8.8 mg/dL (7.8-10.44); Carbon Dioxide 28 mmol/L (22-29); Chloride 105 mmol/L (98-107); Glucose 118 mg/dL (70-105); Magnesium 2.2 mg/dL (1.6-2.6); Potassium 3.5 mmol/L (3.5-5.1); Sodium 138 mmol/L (136-145)
[2021-05-31 04:45] LABS: Phosphorus 1.7 mg/dL (2.3-4.7)
[2021-05-31] MEDS ORDERED: Potassium Phosphate 30 MMOL in Sodium Chloride 0.9% 250 ML 250 ML IVPB SCH (05:30)
[2021-05-31] MEDS: Acetaminophen/Codeine 30-300mg Tablet PO PRN (05:42)
[2021-05-31] MEDS: Enoxaparin Sodium 40 MG/0.4 ML SYRINGE SC SCH ×2 (08:56→21:32)
[2021-05-31] MEDS: Simethicone Chewable 80 MG TAB PO SCH ×2 (08:56→21:33)
[2021-05-31] MEDS: Lisinopril 20 MG TAB PO SCH (08:57)
[2021-05-31] MEDS: Polyethylene Glycol 3350 17 GM Packet PO SCH (08:57)
[2021-05-31] MEDS: Ascorbic Acid 500 mg Chewable Tablet PO SCH ×2 (08:57→21:33)
[2021-05-31] MEDS: Famotidine 20 MG TAB PO SCH ×2 (08:58→21:33)
[2021-05-31] MEDS: Gabapentin 300 MG CAP PO SCH (08:58)
[2021-05-31] MEDS: AcetaZOLAMIDE 250 MG TAB PER TUBE SCH ×2 (08:59→21:32)
[2021-05-31] MEDS: Folic Acid 1 MG TAB PO SCH (08:59)
[2021-05-31] MEDS: hydrALAZINE 25 MG TAB PO SCH (08:59)
[2021-05-31] MEDS: Thiamine 100 MG TAB PO SCH (08:59)
[2021-05-31] MEDS: Saccharomyces boulardii 250 MG CAP PO SCH (08:59)
[2021-05-31] MEDS: Amlodipine 10 MG TAB PO SCH (09:00)
[2021-05-31] MEDS: Gabapentin 100 MG CAP PO SCH (21:32)
[2021-06-01] MEDS: Acetaminophen 325 MG/10.15 ML UDCUP PER TUBE SCH ×4 (01:21→18:46)
[2021-06-01 04:14] LABS: Anion Gap 11 mmol/L (10-20); BUN (Urea Nitrogen) 21 mg/dL (8.4-25.7); Calc. Creatinine Clearance 215 mL/min (70-130); Calcium 8.6 mg/dL (7.8-10.44); Carbon Dioxide 23 mmol/L (22-29); Chloride 109 mmol/L (98-107); Glucose 112 mg/dL (70-105); Magnesium 2.1 mg/dL (1.6-2.6); Phosphorus 2.1 mg/dL (2.3-4.7); Potassium 3.8 mmol/L (3.5-5.1); Sodium 139 mmol/L (136-145)
[2021-06-01] MEDS: Amlodipine 5 MG TAB PO SCH (10:06)
[2021-06-01] MEDS: AcetaZOLAMIDE 250 MG TAB PER TUBE SCH (10:06)
[2021-06-01] MEDS: Ascorbic Acid 500 mg Chewable Tablet PO SCH ×2 (10:07→22:01)
[2021-06-01] MEDS: Enoxaparin Sodium 40 MG/0.4 ML SYRINGE SC SCH ×2 (10:07→22:02)
[2021-06-01] MEDS: Famotidine 20 MG TAB PO SCH ×2 (10:07→22:02)
[2021-06-01] MEDS: Gabapentin 100 MG CAP PO SCH ×2 (10:08→22:01)
[2021-06-01] MEDS: Lisinopril 20 MG TAB PO SCH (10:08)
[2021-06-01] MEDS: Folic Acid 1 MG TAB PO SCH (10:08)
[2021-06-01] MEDS: Polyethylene Glycol 3350 17 GM Packet PO SCH (10:08)
[2021-06-01] MEDS: hydrALAZINE 25 MG TAB PO SCH (10:08)
[2021-06-01] MEDS: Saccharomyces boulardii 250 MG CAP PO SCH (10:09)
[2021-06-01] MEDS: Simethicone Chewable 80 MG TAB PO SCH ×2 (10:09→22:02)
[2021-06-01] MEDS: Thiamine 100 MG TAB PO SCH (10:09)
[2021-06-01] MEDS: Melatonin 3 MG TAB PO SCH (22:02)
[2021-06-02] MEDS: Acetaminophen 325 MG/10.15 ML UDCUP PER TUBE SCH ×5 (01:39→23:36)
[2021-06-02] MEDS ORDERED: Metoclopramide HCl 10 MG/2 ML VIAL IVP SCH (03:00)
[2021-06-02] MEDS ORDERED: AcetaZOLAMIDE 250 MG TAB PER TUBE SCH (09:00)
[2021-06-02] MEDS: Ascorbic Acid 500 mg Chewable Tablet PO SCH ×2 (09:27→21:33)
[2021-06-02] MEDS: Enoxaparin Sodium 40 MG/0.4 ML SYRINGE SC SCH ×2 (09:27→21:32)
[2021-06-02] MEDS: Famotidine 20 MG TAB PO SCH ×2 (09:27→21:33)
[2021-06-02] MEDS: Amlodipine 5 MG TAB PO SCH (09:27)
[2021-06-02] MEDS: Folic Acid 1 MG TAB PO SCH (09:28)
[2021-06-02] MEDS: Gabapentin 100 MG CAP PO SCH ×2 (09:28→21:32)
[2021-06-02] MEDS: Furosemide 20 MG TAB PO SCH (09:28)
[2021-06-02] MEDS: Lisinopril 20 MG TAB PO SCH (09:29)
[2021-06-02] MEDS: hydrALAZINE 25 MG TAB PO SCH (09:29)
[2021-06-02] MEDS: Saccharomyces boulardii 250 MG CAP PO SCH (09:29)
[2021-06-02] MEDS: Polyethylene Glycol 3350 17 GM Packet PO SCH (09:29)
[2021-06-02] MEDS: Simethicone Chewable 80 MG TAB PO SCH ×2 (09:29→21:33)
[2021-06-02] MEDS: Thiamine 100 MG TAB PO SCH (09:30)
[2021-06-02] MEDS: Melatonin 3 MG TAB PO SCH (21:33)
[2021-06-03] MEDS: Acetaminophen 325 MG/10.15 ML UDCUP PER TUBE SCH ×3 (05:28→17:26)
[2021-06-03] MEDS: Ascorbic Acid 500 mg Chewable Tablet PO SCH ×2 (08:44→21:04)
[2021-06-03] MEDS: Enoxaparin Sodium 40 MG/0.4 ML SYRINGE SC SCH ×2 (08:44→21:03)
[2021-06-03] MEDS: Amlodipine 5 MG TAB PO SCH (08:44)
[2021-06-03] MEDS: Furosemide 20 MG TAB PO SCH (08:45)
[2021-06-03] MEDS: Gabapentin 100 MG CAP PO SCH ×2 (08:45→21:03)
[2021-06-03] MEDS: Famotidine 20 MG TAB PO SCH ×2 (08:45→21:04)
[2021-06-03] MEDS: Folic Acid 1 MG TAB PO SCH (08:45)
[2021-06-03] MEDS: hydrALAZINE 25 MG TAB PO SCH (08:46)
[2021-06-03] MEDS: Thiamine 100 MG TAB PO SCH (08:46)
[2021-06-03] MEDS: Saccharomyces boulardii 250 MG CAP PO SCH (08:46)
[2021-06-03] MEDS: Simethicone Chewable 80 MG TAB PO SCH ×2 (08:46→21:04)
[2021-06-03] MEDS: Lisinopril 20 MG TAB PO SCH (08:46)
[2021-06-03] MEDS: Polyethylene Glycol 3350 17 GM Packet PO SCH (08:46)
[2021-06-03 11:44] LABS: SARS-CoV-2 PCR by NAA Not Detected (NotDetected)
[2021-06-03] MEDS: Melatonin 3 MG TAB PO SCH (21:04)
[2021-06-04] MEDS: Acetaminophen 325 MG/10.15 ML UDCUP PER TUBE SCH ×4 (01:36→20:59)
[2021-06-04 03:42] LABS: Anion Gap 9 mmol/L (10-20); BUN (Urea Nitrogen) 18 mg/dL (8.4-25.7); Calc. Creatinine Clearance 189 mL/min (70-130); Calcium 8.9 mg/dL (7.8-10.44); Carbon Dioxide 28 mmol/L (22-29); Chloride 108 mmol/L (98-107); Glucose 119 mg/dL (70-105); Phosphorus 2.9 mg/dL (2.3-4.7); Potassium 3.9 mmol/L (3.5-5.1); Sodium 141 mmol/L (136-145)
[2021-06-04] MEDS: Enoxaparin Sodium 40 MG/0.4 ML SYRINGE SC SCH ×2 (11:39→20:56)
[2021-06-04] MEDS: Amlodipine 5 MG TAB PO SCH (12:25)
[2021-06-04] MEDS: Folic Acid 1 MG TAB PO SCH (12:26)
[2021-06-04] MEDS: Famotidine 20 MG TAB PO SCH ×2 (12:26→20:57)
[2021-06-04] MEDS: Ascorbic Acid 500 mg Chewable Tablet PO SCH ×2 (12:26→20:57)
[2021-06-04] MEDS: Furosemide 20 MG TAB PO SCH (12:28)
[2021-06-04] MEDS: Lisinopril 20 MG TAB PO SCH (12:29)
[2021-06-04] MEDS: hydrALAZINE 25 MG TAB PO SCH (12:29)
[2021-06-04] MEDS: Gabapentin 100 MG CAP PO SCH ×2 (12:29→20:56)
[2021-06-04] MEDS: Polyethylene Glycol 3350 17 GM Packet PO SCH (12:29)
[2021-06-04] MEDS: Thiamine 100 MG TAB PO SCH (12:30)
[2021-06-04] MEDS: Simethicone Chewable 80 MG TAB PO SCH ×2 (12:30→20:57)
[2021-06-04] MEDS: hydrALAZINE 20 MG/ML VIAL SLOW IVP PRN (16:16)
[2021-06-04 18:16] LABS: #Basophils 0.1 thou/uL (0.0-0.2); #Eosinphils 0.3 thou/uL (0.0-0.7); #Lymphocytes 0.8 thou/uL (1.20-3.40); #Monocytes 0.6 thou/uL (0.11-0.59); #Neutrophils 5.1 thou/uL (1.40-6.50); %Basophils 1.1 % (0.0-1.0); %Eosinophils 4.4 % (0.0-10.0); %Lymphocytes 11.2 % (21.0-51.0); %Monocytes 8.6 % (0.0-10.0); %Neutrophils 74.7 % (42.0-75.0); Hemoglobin 9.8 g/dL (14.0-18.0); Mean Corpuscular HGB CONC 30.5 g/dL (32.0-36.0); Mean Corpuscular Hemoglobin 27.5 pg (27.0-31.0); Mean Corpuscular Volume 90.2 fL (78.0-98.0); Mean Platelet Volume 6.7 fL (7.4-10.4); Platelet Count 247 thou/uL (130-400); RBC Distribution Width 17.9 % (11.5-14.5); Red Blood Cell (RBC) Count 3.56 mill/uL (4.70-6.10); White Blood Cell (WBC) Count 6.8 thou/uL (4.8-10.8)
[2021-06-04] MEDS ORDERED: Labetalol HCl 100 MG/20 ML VIAL SLOW IVP PRN (18:22)
[2021-06-04 18:35] LABS: Anion Gap 11 mmol/L (10-20); BUN (Urea Nitrogen) 19 mg/dL (8.4-25.7); Calc. Creatinine Clearance 193 mL/min (70-130); Carbon Dioxide 28 mmol/L (22-29); Chloride 107 mmol/L (98-107); Glucose 101 mg/dL (70-105); Magnesium 2.1 mg/dL (1.6-2.6); Phosphorus 2.4 mg/dL (2.3-4.7); Potassium 3.9 mmol/L (3.5-5.1); Sodium 142 mmol/L (136-145)
[2021-06-04] MEDS: Melatonin 3 MG TAB PO SCH (20:57)
[2021-06-05] MEDS: Acetaminophen 325 MG/10.15 ML UDCUP PER TUBE SCH ×4 (01:11→20:44)
[2021-06-05] MEDS ORDERED: Potassium Phosphate 15 MMOL in Sodium Chloride 0.9% 250 ML 250 ML IVPB SCH (08:00)
[2021-06-05] MEDS: Enoxaparin Sodium 40 MG/0.4 ML SYRINGE SC SCH ×2 (08:02→20:45)
[2021-06-05] MEDS: Thiamine 100 MG TAB PO SCH (08:02)
[2021-06-05] MEDS: Famotidine 20 MG TAB PO SCH ×2 (08:02→20:46)
[2021-06-05] MEDS: Gabapentin 100 MG CAP PO SCH ×2 (08:02→20:45)
[2021-06-05] MEDS: Lisinopril 20 MG TAB PO SCH (08:02)
[2021-06-05] MEDS: hydrALAZINE 25 MG TAB PO SCH (08:02)
[2021-06-05] MEDS: Furosemide 20 MG TAB PO SCH (08:02)
[2021-06-05] MEDS: Amlodipine 5 MG TAB PO SCH (08:02)
[2021-06-05] MEDS: Folic Acid 1 MG TAB PO SCH (08:02)
[2021-06-05] MEDS: Ascorbic Acid 500 mg Chewable Tablet PO SCH ×2 (08:03→20:46)
[2021-06-05] MEDS: Polyethylene Glycol 3350 17 GM Packet PO SCH (08:03)
[2021-06-05] MEDS: Simethicone Chewable 80 MG TAB PO SCH ×2 (08:03→20:46)
[2021-06-05] MEDS: Amlodipine 10 MG TAB PO SCH (08:57)
[2021-06-05] MEDS: Melatonin 3 MG TAB PO SCH (20:46)
[2021-06-06] MEDS: Acetaminophen 325 MG/10.15 ML UDCUP PER TUBE SCH ×5 (00:15→23:36)
[2021-06-06] MEDS: Acetaminophen/Codeine 30-300mg Tablet PO PRN (00:21)
[2021-06-06 04:25] LABS: #Neutrophils 3.4 thou/uL (1.40-6.50); %Basophils 0.7 % (0.0-1.0); %Eosinophils 5.6 % (0.0-10.0); %Lymphocytes 19.2 % (21.0-51.0); %Monocytes 10.4 % (0.0-10.0); %Neutrophils 64.1 % (42.0-75.0); Hemoglobin 9.4 g/dL (14.0-18.0); Mean Corpuscular HGB CONC 32.4 g/dL (32.0-36.0); Mean Corpuscular Hemoglobin 28.9 pg (27.0-31.0); Mean Corpuscular Volume 89.1 fL (78.0-98.0); Mean Platelet Volume 6.7 fL (7.4-10.4); Platelet Count 214 thou/uL (130-400); RBC Distribution Width 17.7 % (11.5-14.5); Red Blood Cell (RBC) Count 3.25 mill/uL (4.70-6.10); White Blood Cell (WBC) Count 5.2 thou/uL (4.8-10.8)
[2021-06-06 04:26] LABS: #Eosinphils 0.3 thou/uL (0.0-0.7); #Monocytes 0.5 thou/uL (0.11-0.59)
[2021-06-06 04:49] LABS: Anion Gap 10 mmol/L (10-20); BUN (Urea Nitrogen) 15 mg/dL (8.4-25.7); Calc. Creatinine Clearance 189 mL/min (70-130); Calcium 8.7 mg/dL (7.8-10.44); Carbon Dioxide 27 mmol/L (22-29); Chloride 106 mmol/L (98-107); Glucose 94 mg/dL (70-105); Phosphorus 3.1 mg/dL (2.3-4.7); Potassium 3.8 mmol/L (3.5-5.1); Sodium 139 mmol/L (136-145)
[2021-06-06] MEDS: Gabapentin 100 MG CAP PO SCH ×2 (09:36→19:59)
[2021-06-06] MEDS: Furosemide 20 MG TAB PO SCH (09:36)
[2021-06-06] MEDS: Thiamine 100 MG TAB PO SCH (09:37)
[2021-06-06] MEDS: hydrALAZINE 25 MG TAB PO SCH (09:37)
[2021-06-06] MEDS: Simethicone Chewable 80 MG TAB PO SCH ×2 (09:37→19:59)
[2021-06-06] MEDS: Folic Acid 1 MG TAB PO SCH (09:37)
[2021-06-06] MEDS: Amlodipine 10 MG TAB PO SCH (09:37)
[2021-06-06] MEDS: Carvedilol 6.25 MG TAB PO SCH ×2 (09:37→19:59)
[2021-06-06] MEDS: Ascorbic Acid 500 mg Chewable Tablet PO SCH ×2 (09:37→19:58)
[2021-06-06] MEDS: Lisinopril 20 MG TAB PO SCH (09:37)
[2021-06-06] MEDS: Famotidine 20 MG TAB PO SCH ×2 (09:37→19:59)
[2021-06-06] MEDS: Polyethylene Glycol 3350 17 GM Packet PO SCH (09:38)
[2021-06-06] MEDS: Enoxaparin Sodium 40 MG/0.4 ML SYRINGE SC SCH ×2 (09:38→19:59)
[2021-06-06] MEDS: Melatonin 3 MG TAB PO SCH (19:59)
[2021-06-07 03:43] VITALS: BMI 28.2
[2021-06-07] MEDS: Acetaminophen 325 MG/10.15 ML UDCUP PER TUBE SCH ×4 (05:16→22:56)
[2021-06-07 05:27] LABS: Anion Gap 11 mmol/L (10-20); BUN (Urea Nitrogen) 12 mg/dL (8.4-25.7); Calc. Creatinine Clearance 185 mL/min (70-130); Calcium 8.9 mg/dL (7.8-10.44); Carbon Dioxide 29 mmol/L (22-29); Chloride 106 mmol/L (98-107); Glucose 102 mg/dL (70-105); Phosphorus 3.7 mg/dL (2.3-4.7); Potassium 3.6 mmol/L (3.5-5.1); Sodium 142 mmol/L (136-145)
[2021-06-07] MEDS ORDERED: Potassium Chloride 40 MEQ in Sodium Chloride 0.9% 250 ML 250 ML IVPB SCH (09:00)
[2021-06-07] MEDS: hydrALAZINE 25 MG TAB PO SCH (09:32)
[2021-06-07] MEDS: Lisinopril 20 MG TAB PO SCH (09:32)
[2021-06-07] MEDS: Furosemide 20 MG TAB PO SCH (09:33)
[2021-06-07] MEDS: Gabapentin 100 MG CAP PO SCH ×2 (09:33→20:37)
[2021-06-07] MEDS: Ascorbic Acid 500 mg Chewable Tablet PO SCH ×2 (09:33→20:35)
[2021-06-07] MEDS: Amlodipine 10 MG TAB PO SCH (09:33)
[2021-06-07] MEDS: Thiamine 100 MG TAB PO SCH (09:34)
[2021-06-07] MEDS: Carvedilol 6.25 MG TAB PO SCH ×2 (09:34→20:36)
[2021-06-07] MEDS: Simethicone Chewable 80 MG TAB PO SCH ×2 (09:34→21:12)
[2021-06-07] MEDS: Folic Acid 1 MG TAB PO SCH (09:34)
[2021-06-07] MEDS: Famotidine 20 MG TAB PO SCH ×2 (09:34→20:37)
[2021-06-07] MEDS: Enoxaparin Sodium 40 MG/0.4 ML SYRINGE SC SCH ×2 (09:34→20:36)
[2021-06-07] MEDS: Polyethylene Glycol 3350 17 GM Packet PO SCH (09:35)
[2021-06-07] MEDS: Melatonin 3 MG TAB PO SCH (20:39)
[2021-06-07] MEDS: Acetaminophen/Codeine 30-300mg Tablet PO PRN (23:09)
[2021-06-08] MEDS: Acetaminophen 325 MG/10.15 ML UDCUP PER TUBE SCH ×4 (04:40→23:28)
[2021-06-08 06:19] LABS: Anion Gap 10 mmol/L (10-20); BUN (Urea Nitrogen) 11 mg/dL (8.4-25.7); Calc. Creatinine Clearance 186 mL/min (70-130); Carbon Dioxide 28 mmol/L (22-29); Chloride 107 mmol/L (98-107); Glucose 96 mg/dL (70-105); Magnesium 1.9 mg/dL (1.6-2.6); Phosphorus 3.6 mg/dL (2.3-4.7); Potassium 3.7 mmol/L (3.5-5.1); Sodium 141 mmol/L (136-145)
[2021-06-08] MEDS ORDERED: Magnesium Sulfate 2 GM, Potassium Chloride 40 MEQ in Sodium Chloride 0.9% 250 ML 250 ML IVPB SCH (09:00)
[2021-06-08] MEDS ORDERED: Potassium Chloride 40 MEQ in Premix Bag 1 BAG IVPB SCH (09:00)
[2021-06-08] MEDS: Amlodipine 10 MG TAB PO SCH (09:07)
[2021-06-08] MEDS: Lisinopril 20 MG TAB PO SCH (09:07)
[2021-06-08] MEDS: Thiamine 100 MG TAB PO SCH (09:08)
[2021-06-08] MEDS: Furosemide 20 MG TAB PO SCH (09:08)
[2021-06-08] MEDS: Folic Acid 1 MG TAB PO SCH (09:08)
[2021-06-08] MEDS: Ascorbic Acid 500 mg Chewable Tablet PO SCH ×2 (09:08→20:50)
[2021-06-08] MEDS: hydrALAZINE 25 MG TAB PO SCH (09:08)
[2021-06-08] MEDS: Carvedilol 6.25 MG TAB PO SCH ×2 (09:09→20:50)
[2021-06-08] MEDS: Polyethylene Glycol 3350 17 GM Packet PO SCH (09:09)
[2021-06-08] MEDS: Famotidine 20 MG TAB PO SCH ×2 (09:09→20:55)
[2021-06-08] MEDS: Simethicone Chewable 80 MG TAB PO SCH ×2 (09:09→20:53)
[2021-06-08] MEDS: Gabapentin 100 MG CAP PO SCH ×2 (09:09→20:52)
[2021-06-08] MEDS: Enoxaparin Sodium 40 MG/0.4 ML SYRINGE SC SCH ×2 (09:09→20:50)
[2021-06-08] MEDS: Melatonin 3 MG TAB PO SCH (20:52)
[2021-06-09] MEDS: Acetaminophen 325 MG/10.15 ML UDCUP PER TUBE SCH ×3 (05:58→17:01)
[2021-06-09 06:13] LABS: Anion Gap 11 mmol/L (10-20); BUN (Urea Nitrogen) 9 mg/dL (8.4-25.7); Calc. Creatinine Clearance 183 mL/min (70-130); Calcium 9.1 mg/dL (7.8-10.44); Carbon Dioxide 29 mmol/L (22-29); Chloride 106 mmol/L (98-107); Glucose 99 mg/dL (70-105); Magnesium 1.9 mg/dL (1.6-2.6); Phosphorus 3.9 mg/dL (2.3-4.7); Potassium 3.6 mmol/L (3.5-5.1); Sodium 142 mmol/L (136-145)
[2021-06-09] MEDS: Gabapentin 100 MG CAP PO SCH ×2 (09:11→20:53)
[2021-06-09] MEDS: Amlodipine 10 MG TAB PO SCH (09:12)
[2021-06-09] MEDS: Ascorbic Acid 500 mg Chewable Tablet PO SCH ×2 (09:12→20:51)
[2021-06-09] MEDS: Folic Acid 1 MG TAB PO SCH (09:12)
[2021-06-09] MEDS: Furosemide 20 MG TAB PO SCH (09:12)
[2021-06-09] MEDS: Simethicone Chewable 80 MG TAB PO SCH ×2 (09:12→20:54)
[2021-06-09] MEDS: Lisinopril 20 MG TAB PO SCH (09:12)
[2021-06-09] MEDS: hydrALAZINE 25 MG TAB PO SCH (09:12)
[2021-06-09] MEDS: Famotidine 20 MG TAB PO SCH ×2 (09:12→20:52)
[2021-06-09] MEDS: Thiamine 100 MG TAB PO SCH (09:12)
[2021-06-09] MEDS: Carvedilol 6.25 MG TAB PO SCH ×2 (09:13→20:51)
[2021-06-09] MEDS: Enoxaparin Sodium 40 MG/0.4 ML SYRINGE SC SCH ×2 (09:13→20:52)
[2021-06-09] MEDS: Polyethylene Glycol 3350 17 GM Packet PO SCH (09:13)
[2021-06-09] MEDS: Acetaminophen/Codeine 30-300mg Tablet PO PRN (09:16)
[2021-06-09] MEDS ORDERED: Potassium Chloride 20 MEQ TAB PO SCH (10:45)
[2021-06-09] MEDS: Melatonin 3 MG TAB PO SCH (20:53)
[2021-06-10] MEDS: Acetaminophen 325 MG/10.15 ML UDCUP PER TUBE SCH ×5 (00:51→23:41)
[2021-06-10] MEDS: Thiamine 100 MG TAB PO SCH (08:17)
[2021-06-10] MEDS: Furosemide 20 MG TAB PO SCH (08:17)
[2021-06-10] MEDS: hydrALAZINE 25 MG TAB PO SCH (08:17)
[2021-06-10] MEDS: Simethicone Chewable 80 MG TAB PO SCH ×2 (08:17→20:49)
[2021-06-10] MEDS: Folic Acid 1 MG TAB PO SCH (08:17)
[2021-06-10] MEDS: Gabapentin 100 MG CAP PO SCH ×2 (08:17→20:51)
[2021-06-10] MEDS: Lisinopril 20 MG TAB PO SCH (08:18)
[2021-06-10] MEDS: Ascorbic Acid 500 mg Chewable Tablet PO SCH ×2 (08:18→20:49)
[2021-06-10] MEDS: Polyethylene Glycol 3350 17 GM Packet PO SCH (08:18)
[2021-06-10] MEDS: Amlodipine 10 MG TAB PO SCH (08:18)
[2021-06-10] MEDS: Enoxaparin Sodium 40 MG/0.4 ML SYRINGE SC SCH ×2 (08:18→20:49)
[2021-06-10] MEDS: Carvedilol 6.25 MG TAB PO SCH ×2 (08:18→20:50)
[2021-06-10] MEDS: Famotidine 20 MG TAB PO SCH ×2 (08:18→20:50)
[2021-06-10] MEDS: Acetaminophen/Codeine 30-300mg Tablet PO PRN (13:35)
[2021-06-10] MEDS: Melatonin 3 MG TAB PO SCH (20:51)
[2021-06-10] MEDS: Ibuprofen 200 MG TAB PO PRN (23:41)
[2021-06-11] MEDS: Acetaminophen 325 MG/10.15 ML UDCUP PER TUBE SCH ×3 (06:04→17:28)
[2021-06-11] MEDS ORDERED: Magnesium Citrate 300 ML BOT PO SCH (08:45)
[2021-06-11] MEDS: Polyethylene Glycol 3350 17 GM Packet PO SCH ×2 (10:01→10:25)
[2021-06-11] MEDS: Carvedilol 6.25 MG TAB PO SCH (10:02)
[2021-06-11] MEDS: Simethicone Chewable 80 MG TAB PO SCH (10:02)
[2021-06-11] MEDS: Amlodipine 10 MG TAB PO SCH (10:02)
[2021-06-11] MEDS: Thiamine 100 MG TAB PO SCH (10:02)
[2021-06-11] MEDS: Furosemide 20 MG TAB PO SCH (10:02)
[2021-06-11] MEDS: Gabapentin 100 MG CAP PO SCH (10:02)
[2021-06-11] MEDS: Folic Acid 1 MG TAB PO SCH (10:02)
[2021-06-11] MEDS: hydrALAZINE 25 MG TAB PO SCH (10:03)
[2021-06-11] MEDS: Lisinopril 20 MG TAB PO SCH (10:03)
[2021-06-11] MEDS: Ascorbic Acid 500 mg Chewable Tablet PO SCH (10:03)
[2021-06-11] MEDS: Enoxaparin Sodium 40 MG/0.4 ML SYRINGE SC SCH (10:03)
[2021-06-11 11:02] LABS: SARS-CoV-2 PCR by NAA Not Detected (NotDetected)
[2021-06-11] MEDS: Ibuprofen 200 MG TAB PO PRN (13:58)
[2021-06-11 16:01] VITALS: BP 146/78; TEMP 98
[2021-06-11] MEDS: Acetaminophen/Codeine 30-300mg Tablet PO PRN (17:19)
== END 2021-06-11 19:16 | DRG 3 ==
LOC: ERS 13:32 → EDBD 13:32 → CCU 16:30 → IMCU/EMU 05-30 17:55 → SURG A 06-06 15:24
PROVIDERS: ADMIT Surgery; ATTEND Surgery
PROC: 30233N1 Transfusion of Nonautologous Red Blood Cells into Peripheral Vein, Percutaneous Approach (ICD-10-PCS; 2021-04-22)
PROC: 30233K1 Transfusion of Nonautologous Frozen Plasma into Peripheral Vein, Percutaneous Approach (ICD-10-PCS; 2021-04-22)
PROC: 6A551Z2 Pheresis of Platelets, Multiple (ICD-10-PCS; 2021-04-22)
PROC: 30233M1 Transfusion of Nonautologous Plasma Cryoprecipitate into Peripheral Vein, Percutaneous Approach (ICD-10-PCS; 2021-04-22)
PROC: 0HQ1XZZ Repair Face Skin, External Approach (ICD-10-PCS; 2021-04-22)
PROC: 04HY32Z Insertion of Monitoring Device into Lower Artery, Percutaneous Approach (ICD-10-PCS; 2021-04-22)
PROC: 0BH17EZ Insertion of Endotracheal Airway into Trachea, Via Natural or Artificial Opening (ICD-10-PCS; 2021-04-22)
PROC: 5A1945Z Respiratory Ventilation, 24-96 Consecutive Hours (ICD-10-PCS; 2021-04-22)
PROC: 0QS906Z Reposition Left Femoral Shaft with Intramedullary Internal Fixation Device, Open Approach (ICD-10-PCS; 2021-04-22)
PROC: 0QSH06Z Reposition Left Tibia with Intramedullary Internal Fixation Device, Open Approach (ICD-10-PCS; 2021-04-22)
PROC: 0QS806Z Reposition Right Femoral Shaft with Intramedullary Internal Fixation Device, Open Approach (ICD-10-PCS; 2021-04-22)
PROC: 0PH Upper Bones, Insertion (ICD-10-PCS; 2021-04-22)
PROC: 0PH Upper Bones, Insertion (ICD-10-PCS; 2021-04-22)
PROC: 0HQFXZZ Repair Right Hand Skin, External Approach (ICD-10-PCS; 2021-04-22)
PROC: 0HQBXZZ Repair Right Upper Arm Skin, External Approach (ICD-10-PCS; 2021-04-22)
PROC: 02HV33Z Insertion of Infusion Device into Superior Vena Cava, Percutaneous Approach (ICD-10-PCS; 2021-04-22)
PROC: 0BH17EZ Insertion of Endotracheal Airway into Trachea, Via Natural or Artificial Opening (ICD-10-PCS; principal; 2021-04-24)
PROC: 5A1955Z Respiratory Ventilation, Greater than 96 Consecutive Hours (ICD-10-PCS; 2021-04-24)
PROC: 06H03DZ Insertion of Intraluminal Device into Inferior Vena Cava, Percutaneous Approach (ICD-10-PCS; 2021-04-26)
PROC: 0BC68ZZ Extirpation of Matter from Right Lower Lobe Bronchus, Via Natural or Artificial Opening Endoscopic (ICD-10-PCS; 2021-04-26)
PROC: 0BC48ZZ Extirpation of Matter from Right Upper Lobe Bronchus, Via Natural or Artificial Opening Endoscopic (ICD-10-PCS; 2021-04-26)
PROC: 0B9J8ZZ Drainage of Left Lower Lung Lobe, Via Natural or Artificial Opening Endoscopic (ICD-10-PCS; 2021-04-26)
PROC: 0B9G8ZZ Drainage of Left Upper Lung Lobe, Via Natural or Artificial Opening Endoscopic (ICD-10-PCS; 2021-04-26)
PROC: 0BC38ZZ Extirpation of Matter from Right Main Bronchus, Via Natural or Artificial Opening Endoscopic (ICD-10-PCS; 2021-04-26)
PROC: 0BC58ZZ Extirpation of Matter from Right Middle Lobe Bronchus, Via Natural or Artificial Opening Endoscopic (ICD-10-PCS; 2021-04-30)
PROC: 0BCB8ZZ Extirpation of Matter from Left Lower Lobe Bronchus, Via Natural or Artificial Opening Endoscopic (ICD-10-PCS; 2021-04-30)
PROC: 0BC48ZZ Extirpation of Matter from Right Upper Lobe Bronchus, Via Natural or Artificial Opening Endoscopic (ICD-10-PCS; 2021-04-30)
PROC: 0BC88ZZ Extirpation of Matter from Left Upper Lobe Bronchus, Via Natural or Artificial Opening Endoscopic (ICD-10-PCS; 2021-04-30)
PROC: 0BC68ZZ Extirpation of Matter from Right Lower Lobe Bronchus, Via Natural or Artificial Opening Endoscopic (ICD-10-PCS; 2021-04-30)
PROC: 0B113F4 Bypass Trachea to Cutaneous with Tracheostomy Device, Percutaneous Approach (ICD-10-PCS; 2021-05-04)
PROC: 0QSH04Z Reposition Left Tibia with Internal Fixation Device, Open Approach (ICD-10-PCS; 2021-05-07)
PROC: 0QSM04Z Reposition Left Tarsal with Internal Fixation Device, Open Approach (ICD-10-PCS; 2021-05-07)
PROC: 0RRM0JZ Replacement of Left Elbow Joint with Synthetic Substitute, Open Approach (ICD-10-PCS; 2021-05-08)
PROC: 0LQ60ZZ Repair Left Lower Arm and Wrist Tendon, Open Approach (ICD-10-PCS; 2021-05-08)
PROC: 0BCB8ZZ Extirpation of Matter from Left Lower Lobe Bronchus, Via Natural or Artificial Opening Endoscopic (ICD-10-PCS; 2021-05-08)
PROC: 0BC48ZZ Extirpation of Matter from Right Upper Lobe Bronchus, Via Natural or Artificial Opening Endoscopic (ICD-10-PCS; 2021-05-08)
PROC: 0BC88ZZ Extirpation of Matter from Left Upper Lobe Bronchus, Via Natural or Artificial Opening Endoscopic (ICD-10-PCS; 2021-05-08)
PROC: 0BC68ZZ Extirpation of Matter from Right Lower Lobe Bronchus, Via Natural or Artificial Opening Endoscopic (ICD-10-PCS; 2021-05-08)
PROC: 0PP Upper Bones, Removal (ICD-10-PCS; 2021-05-08)
PROC: 0NSR04Z Reposition Maxilla with Internal Fixation Device, Open Approach (ICD-10-PCS; 2021-05-10)
PROC: 0NSB04Z Reposition Nasal Bone with Internal Fixation Device, Open Approach (ICD-10-PCS; 2021-05-10)
PROC: 0NSP04Z Reposition Right Orbit with Internal Fixation Device, Open Approach (ICD-10-PCS; 2021-05-10)
PROC: 0NSR04Z Reposition Maxilla with Internal Fixation Device, Open Approach (ICD-10-PCS; 2021-05-10)
PROC: 0NSB04Z Reposition Nasal Bone with Internal Fixation Device, Open Approach (ICD-10-PCS; 2021-05-10)
PROC: 0NSM04Z Reposition Right Zygomatic Bone with Internal Fixation Device, Open Approach (ICD-10-PCS; 2021-05-10)
PROC: 0NSN04Z Reposition Left Zygomatic Bone with Internal Fixation Device, Open Approach (ICD-10-PCS; 2021-05-10)
PROC: 0NSQ04Z Reposition Left Orbit with Internal Fixation Device, Open Approach (ICD-10-PCS; 2021-05-10)
PROC: 0PSF04Z Reposition Right Humeral Shaft with Internal Fixation Device, Open Approach (ICD-10-PCS; 2021-05-10)
PROC: 0LQ50ZZ Repair Right Lower Arm and Wrist Tendon, Open Approach (ICD-10-PCS; 2021-05-10)
PROC: 01N40ZZ Release Ulnar Nerve, Open Approach (ICD-10-PCS; 2021-05-10)
PROC: 0PP Upper Bones, Removal (ICD-10-PCS; 2021-05-10)
PROC: 0B9F8ZZ Drainage of Right Lower Lung Lobe, Via Natural or Artificial Opening Endoscopic (ICD-10-PCS; 2021-05-16)
PROC: 0B9C8ZZ Drainage of Right Upper Lung Lobe, Via Natural or Artificial Opening Endoscopic (ICD-10-PCS; 2021-05-16)
PROC: 0B938ZZ Drainage of Right Main Bronchus, Via Natural or Artificial Opening Endoscopic (ICD-10-PCS; 2021-05-16)
DX: S06.5X9A Traumatic subdural hemorrhage with loss of consciousness of unspecified duration, initial encounter (principal); S42.402B Unspecified fracture of lower end of left humerus, initial encounter for open fracture; S42.401B Unspecified fracture of lower end of right humerus, initial encounter for open fracture; S72.352B Displaced comminuted fracture of shaft of left femur, initial encounter for open fracture type I or II; S72.351B Displaced comminuted fracture of shaft of right femur, initial encounter for open fracture type I or II; T79.1XXA Fat embolism (traumatic), initial encounter; J15.6 Pneumonia due to other Gram-negative bacteria; J15.212 Pneumonia due to Methicillin resistant Staphylococcus aureus; J15.8 Pneumonia due to other specified bacteria; J96.01 Acute respiratory failure with hypoxia; I46.9 Cardiac arrest, cause unspecified; J69.0 Pneumonitis due to inhalation of food and vomit; S82.202A Unspecified fracture of shaft of left tibia, initial encounter for closed fracture; E87.2 Acidosis; S72.402A Unspecified fracture of lower end of left femur, initial encounter for closed fracture; S27.329A Contusion of lung, unspecified, initial encounter; D62 Acute posthemorrhagic anemia; N17.9 Acute kidney failure, unspecified; G93.49 Other encephalopathy; E87.0 Hyperosmolality and hypernatremia; E87.3 Alkalosis; Z20.822 Contact with and (suspected) exposure to COVID-19; R40.2352 Coma scale, best motor response, localizes pain, at arrival to emergency department; R40.2142 Coma scale, eyes open, spontaneous, at arrival to emergency department; R40.2242 Coma scale, best verbal response, confused conversation, at arrival to emergency department; E66.01 Morbid (severe) obesity due to excess calories; S02.2XXA Fracture of nasal bones, initial encounter for closed fracture; S02.85XA Fracture of orbit, unspecified, initial encounter for closed fracture; S02.19XA Other fracture of base of skull, initial encounter for closed fracture; S02.40FA Zygomatic fracture, left side, initial encounter for closed fracture; T79.6XXA Traumatic ischemia of muscle, initial encounter; N18.9 Chronic kidney disease, unspecified; E83.51 Hypocalcemia; S01.81XA Laceration without foreign body of other part of head, initial encounter; R00.1 Bradycardia, unspecified; S51.811A Laceration without foreign body of right forearm, initial encounter; S41.111A Laceration without foreign body of right upper arm, initial encounter; G56.32 Lesion of radial nerve, left upper limb; S92.062A Displaced intraarticular fracture of left calcaneus, initial encounter for closed fracture; S82.55XA Nondisplaced fracture of medial malleolus of left tibia, initial encounter for closed fracture; S02.412A LeFort II fracture, initial encounter for closed fracture; S02.413A LeFort III fracture, initial encounter for closed fracture; S46.301A Unspecified injury of muscle, fascia and tendon of triceps, right arm, initial encounter; Z53.8 Procedure and treatment not carried out for other reasons; E83.39 Other disorders of phosphorus metabolism; R45.1 Restlessness and agitation; I48.91 Unspecified atrial fibrillation; E87.6 Hypokalemia; D75.839 Thrombocytosis, unspecified; J98.4 Other disorders of lung; Z68.33 Body mass index [BMI] 33.0-33.9, adult; Y92.410 Unspecified street and highway as the place of occurrence of the external cause; V54.6XXA Passenger in pick-up truck or van injured in collision with heavy transport vehicle or bus in traffic accident, initial encounter
CPT/HCPCS: 29105; 31500; 31624; 36415; 36416; 36430; 36556; 36600; 36620; 37191; 51701; 70450; 70486; 70498; 71045; 71260; 71275; 72125; 72170; 74018; 74019; 74177; 74230; 76000; 76377; 80048; 80053; 80076; 80202; 81001; 82040; 82550; 82553; 82805; 83036; 83605; 83735; 83880; 84100; 84439; 84443; 84484; 85007; 85025; 85027; 85384; 85610; 85730; 86850; 86900; 86901; 87040; 87070; 87077; 87086; 87186; 87205; 87324; 87449; 90471; 90715; 93005; 93010; 93306; 94002; 94003; 94640; 96365; 96366; 96367; 96374; 96376; 99152; 99292; C1713; C1769; C1776; C1880; C1889; C9113; G0390; J0171; J0360; J0690; J0696; J1100; J1160; J1630; J1650; J1815; J1885; J1940; J1956; J2001; J2185; J2250; J2270; J2370; J2405; J2543; J2704; J2710; J2765; J2920; J2997; J3010; J3370; J3411; J3475; J3480; J3490; J7030; J7050; J7070; J7120; J7620; P9012; P9016; P9035; P9045; P9048; P9059; Q0163; Q9967; S0020; U0002; U0003; U0005